=== PATIENT | female | born 1945 | race African-American/Black ===

== ENCOUNTER 2016-04-19 12:00 | Emergency (ER) | payer OTHER ==
[~2016-04-19] VITALS: Ht 162.6 cm; Wt 81.6 kg
[~2016-04-19 12:00] MED LIST: ACET650S PEG; AMLO10TA4 PO; AMLO5TAB2 PEG; ASPI81TA44 PO; ATOR40TA PO; ATOR40TA59 PEG; ATORVASTATIN CA80 MG PO; Amlodipine PO; CARV12.5 PO; CARV6.252 PO; CHOL10003 GT; CIPR500T94 PO; CLOP75TA27 PO; COLE5PAC PO; FAMO20TA5 PO; FURO-68 PO; FURO40SO5 PEG; Furosemide PEG; Hydralazine Hcl PO; INSU100I17 SQ; INSU100I18 SQ; INSU100V31 SQ; ISOS20TA4 PO; ISOS30TA4 PO; Isosorbide Dinitrate PO; Isosorbide PO; LABETALOL PO; LANS30CA17 PO; LANS30TA6 FT; LANS30TA6 PEG; LIPITOR80 MG PO; LISI40TA PO; LOSA100T6 PO; LOSA50TA2 PO; MERO500V3 IV; METO100T11 PO; MULT-114 PO; PANT40TA5 PO; POTA20LI PEG; VANC1FRO IV; Vitamin D3 PO; WARF2TAB PO; WARF5TAB PO; [UNRECOGNIZED DRUG - CODE] MC
--- NOTE | 2016-04-19 12:56 | RAD ---
Portable AP upright view CXR: Clinical indications: Back cough and fever. Comparison: October 20, 2015. Findings: No acute lung infiltrate or pleural effusion or pulmonary edema or lung mass or pneumothorax is seen. The heart size, pulmonary vasculature, mediastinum and both doc are stable. Impression: No acute radiographic abnormality is seen.
[2016-04-19 13:44] LABS: CALCIUM 8.9 mg/dL (8.5-10.1); CREATININE 0.7 mg/dL (0.6-1.0); GFR 99.8
[2016-04-19 13:48] LABS: ALBUMIN 2.7 g/dL (3.4-5.0); ALBUMIN/GLOBULIN RATIO 0.6 (1.0-1.7); TOTAL PROTEIN 7.4 g/dL (6.4-8.2)
--- NOTE | 2016-04-19 14:19 | PHYS DOC ---
Past Medical History Past Medical History: Anemia, CAD, CHF, CVA, Diabetes-Type II, High Cholesterol , Heart Disease, Hypertension, NE, Additional Disease, Other Additional Past Medical Histor: R sided deficits d/t CVA, non-verbal Past Surgical History: Coronary Bypass Surgery Additional Past Surgical Histo: leg vein, R AKA, PEG tube Alcohol Use: None Drug Use: None Adult General Chief Complaint Chief Complaint: FEVER HPI HPI Patient is a 70 year old female who presents with her daughter for evaluation of cough for the past 1-2 weeks. She has productive cough. Daughter also noted a fever this morning to 101. Daughter has been given her guaifenesin for cough. Daughter states patient has otherwise been tolerating PEG to feeds and has normal urinary and bowel habits. She also has normal activity for her baseline. Daughter denies emesis or confusion from baseline. Review of Systems Review of Systems Unable to obtain secondary to chronic clinical status Allergies Allergies Allergies Coded Allergies Type Severity Reaction Last Updated Verified I S O L A T I O N *CONTACT* Allergy Unknown 05/26/14 Yes No Known Medication Allergies Allergy Unknown 05/26/14 Yes Physical Exam Physical Exam Constitutional: Well developed, well nourished, no acute distress, non-toxic appearance. [] HENT: Normocephalic, atraumatic, bilateral external ears normal, oropharynx moist, no oral exudates, nose normal. [] Eyes: PERRLA, EOMI. [] Neck: Normal range of motion, supple, no stridor. [] Cardiovascular:Heart rate regular rhythm [] Lungs & Thorax: Bilateral breath sounds clear to auscultation. Intermittent wet cough [] Abdomen: Bowel sounds normal, soft, no tenderness. [] Skin: Warm, dry, no erythema, no rash. [] Back: No tenderness, no CVA tenderness. [] Extremities: No tenderness, ROM intact, no edema. Right above-knee amputation. [ ] Neurologic: Alert, chronic left-sided weakness secondary to past stroke. [] Psychologic: Cooperative, pleasant. [] Current Patient Data Vital Signs Vital Signs Date Time Temp Pulse Resp B/P Pulse Ox O2 Delivery O2 Flow Rate FiO2 04/19/16 14:34 83 164/72 92 Nasal Cannula 2 04/19/16 12:00 99.2 18 99.2 Lab Values Laboratory Tests Test 04/19/16 13:15 Sodium Level 140mmol/L (136-145) Potassium Level 4.0mmol/L (3.5-5.1) Chloride Level 105mmol/L (98-107) Carbon Dioxide Level 25mmol/L (21-32) Anion Gap 10 (6-14) Blood Urea Nitrogen 22mg/dL (7-20) H Creatinine 0.7mg/dL (0.6-1.0) Estimated GFR (Cockcroft-Gault) 99.8 BUN/Creatinine Ratio 31 (6-20) H Glucose Level 133mg/dL (70-99) H Calcium Level 8.9mg/dL (8.5-10.1) Total Bilirubin 1.0mg/dL (0.2-1.0) Aspartate Amino Transferase (AST) 44U/L (15-37) H Alanine Aminotransferase (ALT) 66U/L (14-59) H Alkaline Phosphatase 158U/L (46-116) H Total Protein 7.4g/dL (6.4-8.2) Albumin 2.7g/dL (3.4-5.0) L Albumin/Globulin Ratio 0.6 (1.0-1.7) L Laboratory Tests 04/19/16 13:15 EKG EKG EKG as interpreted by me as sinus rhythm with left bundle branch block, does not meet STEMI criteria, VA 204, QTc 453, no ectopy Radiology/Procedures Radiology/Procedures Chest xray as interpreted by me with no acute cardiopulmonary disease process Course & Med Decision Making Course & Med Decision Making Pertinent Labs and Imaging studies reviewed. (See chart for details) She appears well on exam. Workup is unremarkable here. Daughter feels comfortable continuing her care at home. Return precautions given. Daughter understands and agrees with plan. She was transported back home via EMS. Dragon Disclaimer Dragon Disclaimer This electronic medical record was generated, in whole or in part, using a voice recognition dictation system. Departure Departure Impression: Primary Impression: Cough Disposition: 01 HOME, SELF-CARE Condition: STABLE Referrals: IRWIN BELLO MD (PCP) Patient Instructions: Cough, Adult, [id number] Additional Instructions: Follow-up with your primary care doctor. Return for any concerns. Génesis WILSON MD Apr 19, 2016 14:19
[2016-04-19 14:34] VITALS: BP 164/72
--- NOTE | 2016-04-19 15:46 | EKG ---
[facility] [address] [place] [address] Test Date: 2016-04-19 Test Time: 12:13:28 Pat Name: ARIK ARAUJO Department: Room: Gender: F Compensation Advisor: : 1945 Requested By: Génesis WILSON Order Number: [id number] Reading MD: Liana Beebe Measurements Intervals [place] Rate: 74 P: -18 RI: 204 QRS: -23 QRSD: 142 T: 146 QT: 408 QTc: 453 Interpretive Statements SINUS RHYTHM ATRIAL PREMATURE COMPLEX(ES) LEFTWARD AXIS NON SPECIFIC INTRAVENTRICULAR BLOCK ABNORMAL ECG Electronically Signed On 04-21-2016 20:51:[address] [employer]IATE JUSTICE by Liana Beebe
== END 2016-04-19 15:51 | disposition home or self-care (01) ==
LOC: ER 12:00
DX: R05 Cough (principal); I25.10 Atherosclerotic heart disease of native coronary artery without angina pectoris; I11.0 Hypertensive heart disease with heart failure; I50.9 Heart failure, unspecified; I25.2 Old myocardial infarction; E11.9 Type 2 diabetes mellitus without complications; E78.00 Pure hypercholesterolemia, unspecified; Z86.73 Personal history of transient ischemic attack (TIA), and cerebral infarction without residual deficits; Z95.1 Presence of aortocoronary bypass graft; Z91.041 Radiographic dye allergy status
CPT/HCPCS: 36415; 71010; 80053; 93005; 99285-25

== ENCOUNTER 2016-06-01 10:39 | Emergency (ER) | payer OTHER ==
[~2016-06-01 10:39] MED LIST changes: -ACET650S PEG; +ACET650S19 PEG
[2016-06-01 11:25] LABS: NEG OBC FOB NEG; POS OBC FOB POS
--- NOTE | 2016-06-01 11:25 | RAD ---
Examination: Acute abdomen series History: History of GI bleed Comparison: 05/29/2015 Findings: Low lung volumes and technique accentuate heart size and pulmonary vascularity. There is no acute infiltrate or visualized pneumothorax identified. No evidence of free air noted under the hemidiaphragms Moderately distended bowel loops identified in the midabdomen. Moderate amount of feces and gas noted in the rectum and descending colon region. Impression: 1. Moderate distended bowel loops identified in the midabdomen. Nonspecific bowel gas pattern. 2. Moderate amount of stool identified in the descending colon and the rectum.
[2016-06-01 11:56] LABS: BILIRUBIN,URINE NEGATIVE (NEG); GLUCOSE,URINE NEGATIVE (NEG); NITRITE,URINE POSITIVE (NEG); PROTEIN,URINE 30 mg/dL (NEG-TRACE)
[2016-06-01] MEDS ORDERED: IV NORMAL SALINE 1000ML BAG 1,000 ML IV ONE (12:00)
[2016-06-01 12:12] LABS: BACTERIA,URINE MANY /HPF (0-FEW); RBC,URINE FOBS /HPF (0-2); WBC,URINE TNTC /HPF (0-4)
[2016-06-01 12:19] LABS: BASO % 1 % (0-3); EOS % 6 % (0-3); HEMATOCRIT 32.8 % (36.0-47.0); HEMOGLOBIN 10.8 g/dL (12.0-15.5); LYMPH # 1.5 x10^3/uL (1.0-4.8); LYMPH % 20 % (24-48); MEAN CORPUSCULAR HEMOGLOBIN 30 pg (25-35); MEAN CORPUSCULAR HGB CONC 33 g/dL (31-37); MEAN CORPUSCULAR VOLUME 91 fL (79-100); MONO % 7 % (0-9); NEUT % 67 % (31-73); PLATELET COUNT 213 x10^3/uL (140-400); RED BLOOD COUNT 3.59 x10^6/uL (3.50-5.40); RED CELL DISTRIBUTION WIDTH 14.5 % (11.5-14.5); WHITE BLOOD COUNT 7.4 x10^3/uL (4.0-11.0)
[2016-06-01 12:29] LABS: INR 1.1 (0.8-1.1); PROTHROMBIN TIME PATIENT 13.8 SEC (11.7-14.0)
[2016-06-01 12:32] LABS: CALCIUM 9.3 mg/dL (8.5-10.1); CREATININE 0.8 mg/dL (0.6-1.0); GFR 85.6; POTASSIUM 3.8 mmol/L (3.5-5.1)
[2016-06-01 12:37] LABS: ALBUMIN 2.5 g/dL (3.4-5.0); ALBUMIN/GLOBULIN RATIO 0.5 (1.0-1.7); TOTAL BILIRUBIN 0.7 mg/dL (0.2-1.0); TOTAL PROTEIN 7.2 g/dL (6.4-8.2)
[2016-06-01] MEDS ORDERED: IOHEXOL 300 MG/ML 75 ML VIAL IV ONE (13:15)
--- NOTE | 2016-06-01 13:30 | RAD ---
Examination: CT of the abdomen pelvis with IV contrast History: History of abdominal pain, diarrhea, black stools Comparison: 12/02/2015 Technique: Axial CT images of the temporal is a performed with IV contrast, Coronal and sagittal reformats were performed PQRS Compliance Statement: One or more of the following individualized dose reduction techniques were utilized for this examination: 1. Automated exposure control 2. Adjustment of the mA and/or kV according to patient size 3. Use of iterative reconstruction technique Findings Minimal bibasal lung atelectasis. No evidence of free air identified in the abdomen. The visualized liver, spleen, adrenals grossly appears unremarkable. Cholecystectomy clips are identified. The PEG tube balloon is identified in the stomach. The stomach is mildly distended. The visualized pancreas grossly appears unremarkable. The bilateral kidneys enhance symmetrically. The small bowel is nondilated. Large amount of stool identified in the rectum with surrounding mild inflammatory fat stranding. The appendix grossly appears unremarkable. The urinary bladder demonstrates Saab catheter balloon within. Moderate to severe aortic atherosclerosis. There is minimal focal abdominal aortic ectasia. Moderate degenerative changes identified in the visualized thoracal lumbar spine. Moderate size soft tissue density identified in the left breast again identified. Impression: 1. Large amount of stool identified in the rectum with surrounding inflammatory fat stranding probably due to fecal impaction. 2. Moderate size soft tissue density identified in the left breast region. Follow-up mammography is recommended.
[2016-06-01] MEDS ORDERED: NA P133E2 RC (14:59)
[2016-06-01] MEDS ORDERED: DOCU-27 PO (15:01)
--- NOTE | 2016-06-01 15:31 | EKG ---
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 RI6.01 Unconfirmed report Compared to ECG 04/19/2016 12:13:28 First degree AV block now present Electronically Signed On 06-03-2016 14:04:07 FLOCCULATOR OPERATOR by Rob Almanza
--- NOTE | 2016-06-01 16:45 | ED.ADGEN ---
Past Medical History Past Medical History: Anemia, CAD, CHF, CVA, Diabetes-Type II, High Cholesterol , Heart Disease, Hypertension, OR, Additional Disease, Other Additional Past Medical Histor: R sided deficits d/t CVA, non-verbal Past Surgical History: Coronary Bypass Surgery Additional Past Surgical Histo: leg vein, R AKA, PEG tube Alcohol Use: None Drug Use: None Adult General Chief Complaint Chief Complaint: TARRY STOOL HPI HPI Patient is a 70 year old woman, history of CVA with residual right-sided deficits, nonverbal due to sequelae, hypertension, hyperlipidemia, GI bleed, who presents to the emergency department via EMS, with a report of dark stools times one day. Patient's daughter is en route to the emergency department to provide additional information. Patient has a chronic indwelling Saab catheter and PEG tube, no report of vomiting, report of loose dark stools over the past day as stated, no bleeding for the PEG site, no fevers or chills, no respiratory distress reported. Limited evaluation secondary to patient's nonverbal status. Review of Systems Review of Systems Unable to assess secondary to clinical condition. Current Medications Current Medications Current Medications Medications (Trade) Dose Ordered Sig/Courtney Start Time Stop Time Status Last Admin Dose Admin Iohexol (Omnipaque 300 Mg/ml) 75 ml 1X ONCE 06/01/16 13:15 06/01/16 13:16 DC 06/01/16 13:27 75 ML Sodium Chloride (Iv Sodium Chloride 0.9% 1000ml Bag) 1,000 ml @ 100 mls/hr 1X ONCE 06/01/16 12:00 06/01/16 21:59 06/01/16 12:00 100 MLS/HR Allergies Allergies Allergies Coded Allergies Type Severity Reaction Last Updated Verified I S O L A T I O N *CONTACT* Allergy Unknown 05/26/14 Yes No Known Medication Allergies Allergy Unknown 05/26/14 Yes Physical Exam Physical Exam Constitutional: Well developed, well nourished, no acute distress, non-toxic appearance. [] HENT: Normocephalic, atraumatic, bilateral external ears normal, oropharynx moist, no oral exudates, nose normal. [] Eyes: PERRLA, EOMI, conjunctiva normal, no discharge. [] Neck: Normal range of motion, no tenderness, supple, no stridor. [] Cardiovascular:Heart rate regular rhythm, no murmur, S1, S2, rubs or gallops. [] Lungs & Thorax: Bilateral breath sounds clear to auscultation, no wheezing, rhonchi, rales. [] Abdomen: Bowel sounds normal, PEG tube in place, surrounding site is clean dry and intact, noted some bleeding, patient's abdomen is mildly distended, no rebound, rigidity or guarding, soft, no tenderness, no masses, no pulsatile masses. [] Skin: Warm, dry, no erythema, no rash. [] Back: No tenderness, no CVA tenderness. [] Extremities: No tenderness, no cyanosis, no clubbing, ROM intact, no edema. [] Neurologic: Alert and oriented X 3, normal motor function, normal sensory function, no focal deficits noted. [] Psychologic: Affect normal, judgement normal, mood normal. [] Rectal examination: Patient with large amounts of soft stool in vault, and in diaper, brown. Hemorrhoids noted, nonthrombosed. No evidence of ibrahima blood. Current Patient Data Vital Signs Vital Signs Date Time Temp Pulse Resp B/P Pulse Ox O2 Delivery O2 Flow Rate FiO2 06/01/16 16:06 50 16 138/80 94 Room Air 06/01/16 10:55 98.2 98.2 Lab Values Laboratory Tests Test 06/01/16 11:09 06/01/16 11:42 06/01/16 11:50 Stool Occult Blood Negative (NEG) Urine Collection Type Unknown Urine Color Yellow Urine Clarity Cloudy Urine pH 7.0 Urine Specific [place] 1.015 Urine Protein 30mg/dL (NEG-TRACE) Urine Glucose (UA) Negativemg/dL (NEG) Urine Ketones (Stick) Negativemg/dL (NEG) Urine Blood Negative (NEG) Urine Nitrite Positive (NEG) Urine Bilirubin Negative (NEG) Urine Urobilinogen Dipstick 1.0mg/dL (0.2 mg/dL) Urine Leukocyte Esterase Large (NEG) Urine RBC Fobs/HPF (0-2) Urine WBC Tntc/HPF (0-4) Urine Amorphous Sediment Present/HPF Urine Bacteria Many/HPF (0-FEW) Urine Mucus Marked/LPF White Blood Count 7.4x10^3/uL (4.0-11.0) Red Blood Count 3.59x10^6/uL (3.50-5.40) Hemoglobin 10.8g/dL (12.0-15.5) L Hematocrit 32.8% (36.0-47.0) L Mean Corpuscular Volume 91fL (79-100) Mean Corpuscular Hemoglobin 30pg (25-35) Mean Corpuscular Hemoglobin Concent 33g/dL (31-37) Red Cell Distribution Width 14.5% (11.5-14.5) Platelet Count 213x10^3/uL (140-400) Neutrophils (%) (Auto) 67% (31-73) Lymphocytes (%) (Auto) 20% (24-48) L Monocytes (%) (Auto) 7% (0-9) Eosinophils (%) (Auto) 6% (0-3) H Basophils (%) (Auto) 1% (0-3) Neutrophils # (Auto) 5.0x10^3uL (1.8-7.7) Lymphocytes # (Auto) 1.5x10^3/uL (1.0-4.8) Monocytes # (Auto) 0.5x10^3/uL (0.0-1.1) Eosinophils # (Auto) 0.4x10^3/uL (0.0-0.7) Basophils # (Auto) 0.0x10^3/uL (0.0-0.2) Prothrombin Time 13.8SEC (11.7-14.0) Prothrombin Time INR 1.1 (0.8-1.1) PTT 55SEC (24-38) H Sodium Level 142mmol/L (136-145) Potassium Level 3.8mmol/L (3.5-5.1) Chloride Level 105mmol/L (98-107) Carbon Dioxide Level 32mmol/L (21-32) Anion Gap 5 (6-14) L Blood Urea Nitrogen 26mg/dL (7-20) H Creatinine 0.8mg/dL (0.6-1.0) Estimated GFR (Cockcroft-Gault) 85.6 BUN/Creatinine Ratio 33 (6-20) H Glucose Level 181mg/dL (70-99) H Lactic Acid Level 1.2mmol/L (0.4-2.0) Calcium Level 9.3mg/dL (8.5-10.1) Total Bilirubin 0.7mg/dL (0.2-1.0) Aspartate Amino Transferase (AST) 24U/L (15-37) Alanine Aminotransferase (ALT) 34U/L (14-59) Alkaline Phosphatase 146U/L (46-116) H Total Protein 7.2g/dL (6.4-8.2) Albumin 2.5g/dL (3.4-5.0) L Albumin/Globulin Ratio 0.5 (1.0-1.7) L Laboratory Tests 06/01/16 11:50 Laboratory Tests 06/01/16 11:50 EKG EKG ECG: Sinus rhythm, heart rate 59 bpm, QTC of 456, AL of 238, QRS of 144, left axis deviation with nonspecific interventricular block noted, abnormal ECG, does not meet STEMI criteria. As inserted by me. [] Radiology/Procedures Radiology/Procedures [] [facility] [address] [place] [address] IMAGING REPORT Signed PATIENT: ARIK ARAUJO ACCOUNT: [id number] : 1945 LOCATION: ER AGE: 70 SEX: F EXAM STATUS: REG ER ORD. PHYSICIAN: WILLY HARRELL DO REASON: abd pain/diarrhea PROCEDURE: ABD PELV W/ IV CONTRAST ONLY Examination: CT of the abdomen pelvis with IV contrast History: History of abdominal pain, diarrhea, black stools Comparison: 12/02/2015 Technique: Axial CT images of the temporal is a performed with IV contrast, Coronal and sagittal reformats were performed PQRS Compliance Statement: One or more of the following individualized dose reduction techniques were utilized for this examination: 1. Automated exposure control 2. Adjustment of the mA and/or kV according to patient size 3. Use of iterative reconstruction technique Findings Minimal bibasal lung atelectasis. No evidence of free air identified in the abdomen. The visualized liver, spleen, adrenals grossly appears unremarkable. Cholecystectomy clips are identified. The PEG tube balloon is identified in the stomach. The stomach is mildly distended. The visualized pancreas grossly appears unremarkable. The bilateral kidneys enhance symmetrically. The small bowel is nondilated. Large amount of stool identified in the rectum with surrounding mild inflammatory fat stranding. The appendix grossly appears unremarkable. The urinary bladder demonstrates Saab catheter balloon within. Moderate to severe aortic atherosclerosis. There is minimal focal abdominal aortic ectasia. Moderate degenerative changes identified in the visualized thoracal lumbar spine. Moderate size soft tissue density identified in the left breast again identified. Impression: 1. Large amount of stool identified in the rectum with surrounding inflammatory fat stranding probably due to fecal impaction. 2. Moderate size soft tissue density identified in the left breast region. Follow-up mammography is recommended. DICTATED and SIGNED BY: MILAD COLLINS MD DATE: 06/01/16 1318 CC: IRWIN VALLE MD; WILLY HARRELL DO ~ Impressions: [facility] [address] [place], [place] [id number] IMAGING REPORT Signed PATIENT: ARIK ARAUJO ACCOUNT: [id number] : 1945 LOCATION: ER AGE: 70 SEX: F EXAM STATUS: PRE ER ORD. PHYSICIAN: WILLY HARRELL DO REASON: GI bleeding PROCEDURE: ACUTE ABDOMEN SERIES Examination: Acute abdomen series History: History of GI bleed Comparison: 05/29/2015 Findings: Low lung volumes and technique accentuate heart size and pulmonary vascularity. There is no acute infiltrate or visualized pneumothorax identified. No evidence of free air noted under the hemidiaphragms Moderately distended bowel loops identified in the midabdomen. Moderate amount of feces and gas noted in the rectum and descending colon region. Impression: 1. Moderate distended bowel loops identified in the midabdomen. Nonspecific bowel gas pattern. 2. Moderate amount of stool identified in the descending colon and the rectum. DICTATED and SIGNED BY: MILAD COLLINS MD DATE: 06/01/16 1120 CC: IRWIN VALLE MD; WILLY HARRELL DO ~ Course & Med Decision Making Course & Med Decision Making Pertinent Labs and Imaging studies reviewed. (See chart for details) Patient with a slightly distended abdomen, and distended loops of bowel noted on x-ray, proceeded with CT, due to patient's limited ability to participate in examination, with reports of large amounts of loose stool. Hemoccult negative in the emergency room, patient noted to have a nitrate positive urine, with evidence of bacteria and glucose leuks, but she is a chronically indwelling Saab catheter. Patient has no fever, and no gross cytosis. CT of the abdomen and pelvis reveals fecal impaction, with liquid stool that has been noted moving around the solid stool that is impacted. No other acutely concerning findings identified. I did discuss these findings with Dr. Valle,the patient' s primary care provider. Patient's hemoglobin is 10.8, although this is lower than her previous, she has no evidence of bleeding on examination or in her stool sample. He requests the patient be disimpacted, and that her catheter be replaced, as he believes this is colonization,patient is exhibiting no signs of infection, will hold off on any antibiotics or other events this time. I did discuss this plan with patient's daughter at bedside, she is agreeable with this plan. Patient's Saab catheter was replaced without issue, patient had a disimpaction performed along with soapsuds enema, with significant amount of stool mobilized. Transportation was arranged, and patient was transferred back to the nursing facility without issue. Dragon Disclaimer Dragon Disclaimer This electronic medical record was generated, in whole or in part, using a voice recognition dictation system. Departure Impression: Primary Impression: Fecal impaction in rectum Disposition: HOME, SELF-CARE Condition: IMPROVED Scripts Docusate Sodium (Colace)100 Mg [id number] Mg PO BID PRN CONSTIPATION #30 Prov:WILLY HARRELL DO 06/01/16 Na Phos,M-B/Na Phos,Di-Ba (Fleet Enema)133 Ml Enema1 Each RC ONCE PRN CONSTIPATION #1 BOTTLE Prov:WILLY HARRELL DO 06/01/16 WILLY HARRELL DO Jun 01, 2016 16:45
[2016-06-01 17:15] VITALS: BP 132/73
== END 2016-06-01 17:16 | disposition home or self-care (01) ==
LOC: ER 10:39
DX: K56.41 Fecal impaction (principal); I11.0 Hypertensive heart disease with heart failure; I50.9 Heart failure, unspecified; E11.9 Type 2 diabetes mellitus without complications; E78.00 Pure hypercholesterolemia, unspecified; I25.2 Old myocardial infarction; I25.10 Atherosclerotic heart disease of native coronary artery without angina pectoris; Z86.73 Personal history of transient ischemic attack (TIA), and cerebral infarction without residual deficits; Z95.1 Presence of aortocoronary bypass graft; Z91.041 Radiographic dye allergy status
CPT/HCPCS: 36415; 51702; 74022; 74177; 80053; 81001; 82274; 83605; 85027; 85610; 85730; 86850; 86900; 86901; 87086; 93005; 96360; 96361; 99285; J7030; Q9967; 87186

== ENCOUNTER 2016-07-13 15:13 | Emergency (ER) | payer OTHER ==
[~2016-07-13 15:13] MED LIST changes: +DOCU-27 PO; +NA P133E2 RC
[2016-07-13 16:07] LABS: GLUCOSE,URINE NEGATIVE (NEG); NITRITE,URINE POSITIVE (NEG); PROTEIN,URINE >=300 mg/dL (NEG-TRACE)
[2016-07-13 16:14] LABS: BACTERIA,URINE MANY /HPF (0-FEW); RBC,URINE TNTC /HPF (0-2)
[2016-07-13 16:59] LABS: BASO # 0.1 x10^3/uL (0.0-0.2); BASO % 1 % (0-3); EOS % 5 % (0-3); HEMATOCRIT 36.9 % (36.0-47.0); HEMOGLOBIN 12.4 g/dL (12.0-15.5); LYMPH # 2.1 x10^3/uL (1.0-4.8); LYMPH % 23 % (24-48); MEAN CORPUSCULAR HEMOGLOBIN 30 pg (25-35); MEAN CORPUSCULAR HGB CONC 34 g/dL (31-37); MEAN CORPUSCULAR VOLUME 91 fL (79-100); MONO % 6 % (0-9); NEUT % 65 % (31-73); PLATELET COUNT 212 x10^3/uL (140-400); RED BLOOD COUNT 4.07 x10^6/uL (3.50-5.40); RED CELL DISTRIBUTION WIDTH 14.3 % (11.5-14.5); WHITE BLOOD COUNT 8.9 x10^3/uL (4.0-11.0)
[2016-07-13 17:08] LABS: CALCIUM 8.7 mg/dL (8.5-10.1); CREATININE 0.7 mg/dL (0.6-1.0); GFR 99.8
[2016-07-13 17:10] LABS: PROTHROMBIN TIME PATIENT 12.7 SEC (11.7-14.0)
[2016-07-13 17:14] LABS: ALBUMIN 2.8 g/dL (3.4-5.0); ALBUMIN/GLOBULIN RATIO 0.6 (1.0-1.7); TOTAL BILIRUBIN 0.8 mg/dL (0.2-1.0); TOTAL PROTEIN 7.3 g/dL (6.4-8.2)
[2016-07-13] MEDS ORDERED: ISOS30TA4 PO (17:49)
[2016-07-13] MEDS ORDERED: HYDR12.58 PO (17:49)
[2016-07-13] MEDS ORDERED: CARV25TA2 PO (17:49)
[2016-07-13] MEDS ORDERED: CEPH-264 PO (18:10)
--- NOTE | 2016-07-13 18:10 | PHYS DOC ---
Past Medical History Past Medical History: Anemia, CAD, CHF, Constipation, CVA, Diabetes-Type II, High Cholesterol, Heart Disease, Hypertension, [place], Additional Disease, Other Additional Past Medical Histor: R sided deficits d/t CVA, non-verbal Past Surgical History: Coronary Bypass Surgery Additional Past Surgical Histo: leg vein, R AKA, PEG tube Alcohol Use: None Drug Use: None Adult General Chief Complaint Chief Complaint: BLOOD IN URINE HPI HPI Patient is a 70 year old female with a history significant for coronary artery disease, hypertension, diabetes, CHF, atrial fibrillation, bypass surgery, status post right AKA who presents to the ER today secondary to bleeding in her Saab catheter. Patient's daughter reports that this afternoon she noticed grapelike color in her urine. Patient denies any fevers shakes chills nausea vomiting. She has had several loose stools today. Patient reports that she had the Saab in place since 2013 secondary to a stroke. Daughter reports last and the Saab was changed with roughly 1 month ago. Since rheumatology. Patient has any chest pain or shortness of breath. Patient has any dizziness. Patient denies any headaches. Patient denies any change in her baseline weakness. Patient's physical exam the ER was significant for a normal abdominal exam. A soft nontender no rebound or guarding. Patient's heart was regular rate and rhythm. Patient have an elevated blood pressure in the ER however she is currently being treated for hypertension and is due for medication this evening. Full catheter had no clots noticed however she did have dark red urine insider catheter. Patient's ER course was significant for last or drawl which were all within normal limits. Patient is not on any anticoagulant therapy except for aspirin. Patient had a three-way Saab catheter inserted and continuous bladder irrigation is performed. After approximately 500 mL of continuous bladder irrigation patient's urine appeared clear and has been clear since. Patient's UA was positive for large amount leukocytes. We will go ahead and give her dose of Rocephin and send her home with Keflex in case there is a urinary tract infection that might be causing inflammation of her bladder resulting in bleeding. I discussed with the daughter that there is a possibility that she might have an AVM versus tumor versus polyps that these to be evaluated further by her urologist. Patient's clinically hemodynamically stable at this time for discharge home for further outpatient evaluation of her hematuria. Review of Systems Review of Systems Constitutional: Denies fever or chills [] Eyes: Denies change in visual acuity, redness, or eye pain [] HENT: Denies nasal congestion or sore throat [] All other review systems are negative except as documented in the history of present illness. Allergies Allergies Allergies Coded Allergies Type Severity Reaction Last Updated Verified I S O L A T I O N *CONTACT* Allergy Unknown 05/26/14 Yes No Known Medication Allergies Allergy Unknown 05/26/14 Yes Physical Exam Physical Exam Constitutional: Well developed, well nourished, no acute distress, non-toxic appearance. [] HENT: Normocephalic, atraumatic, bilateral external ears normal, oropharynx moist, no oral exudates, nose normal. [] Eyes: PERRLA, conjunctiva normal, no discharge. [] Neck: , no tenderness, supple, no stridor. [] Cardiovascular:Heart rate regular rhythm, Abdomen: Bowel sounds normal, soft, no tenderness, no masses, no pulsatile masses. [] Skin: Warm, dry, no erythema, Back: No tenderness, no CVA tenderness. [] Extremities: No tenderness, Neurologic: Alert Psychologic: Affect normal, judgement normal, mood normal. [] Current Patient Data Vital Signs Vital Signs Date Time Temp Pulse Resp B/P Pulse Ox O2 Delivery O2 Flow Rate FiO2 07/13/16 15:46 98.6 65 18 165/71 97 Room Air 98.6 Lab Values Laboratory Tests Test 07/13/16 15:35 07/13/16 16:50 Urine Collection Type Unknown Urine Color Red Urine Clarity Turbid Urine pH 8.0 Urine Specific [place] 1.010 Urine Protein >=300mg/dL (NEG-TRACE) Urine Glucose (UA) Negativemg/dL (NEG) Urine Ketones (Stick) Negativemg/dL (NEG) Urine Blood Large (NEG) Urine Nitrite Positive (NEG) Urine Bilirubin (NEG) Urine Urobilinogen Dipstick 1.0mg/dL (0.2 mg/dL) Urine Leukocyte Esterase Large (NEG) Urine RBC Tntc/HPF (0-2) Urine WBC 1-4/HPF (0-4) Urine Bacteria Many/HPF (0-FEW) Urine Mucus Mod/LPF White Blood Count 8.9x10^3/uL (4.0-11.0) Red Blood Count 4.07x10^6/uL (3.50-5.40) Hemoglobin 12.4g/dL (12.0-15.5) Hematocrit 36.9% (36.0-47.0) Mean Corpuscular Volume 91fL (79-100) Mean Corpuscular Hemoglobin 30pg (25-35) Mean Corpuscular Hemoglobin Concent 34g/dL (31-37) Red Cell Distribution Width 14.3% (11.5-14.5) Platelet Count 212x10^3/uL (140-400) Neutrophils (%) (Auto) 65% (31-73) Lymphocytes (%) (Auto) 23% (24-48) L Monocytes (%) (Auto) 6% (0-9) Eosinophils (%) (Auto) 5% (0-3) H Basophils (%) (Auto) 1% (0-3) Neutrophils # (Auto) 5.8x10^3uL (1.8-7.7) Lymphocytes # (Auto) 2.1x10^3/uL (1.0-4.8) Monocytes # (Auto) 0.5x10^3/uL (0.0-1.1) Eosinophils # (Auto) 0.5x10^3/uL (0.0-0.7) Basophils # (Auto) 0.1x10^3/uL (0.0-0.2) Prothrombin Time 12.7SEC (11.7-14.0) Prothrombin Time INR 1.0 (0.8-1.1) Sodium Level 141mmol/L (136-145) Potassium Level 4.0mmol/L (3.5-5.1) Chloride Level 102mmol/L (98-107) Carbon Dioxide Level 31mmol/L (21-32) Anion Gap 8 (6-14) Blood Urea Nitrogen 22mg/dL (7-20) H Creatinine 0.7mg/dL (0.6-1.0) Estimated GFR (Cockcroft-Gault) 99.8 BUN/Creatinine Ratio 31 (6-20) H Glucose Level 160mg/dL (70-99) H Calcium Level 8.7mg/dL (8.5-10.1) Total Bilirubin 0.8mg/dL (0.2-1.0) Aspartate Amino Transferase (AST) 31U/L (15-37) Alanine Aminotransferase (ALT) 48U/L (14-59) Alkaline Phosphatase 174U/L (46-116) H Total Protein 7.3g/dL (6.4-8.2) Albumin 2.8g/dL (3.4-5.0) L Albumin/Globulin Ratio 0.6 (1.0-1.7) L Laboratory Tests 07/13/16 16:50 Laboratory Tests 07/13/16 16:50 EKG EKG [] Radiology/Procedures Radiology/Procedures [] Course & Med Decision Making Course & Med Decision Making Pertinent Labs and Imaging studies reviewed. (See chart for details) [] Dragon Disclaimer Dragon Disclaimer This electronic medical record was generated, in whole or in part, using a voice recognition dictation system. Departure Departure Impression: Primary Impression: Urinary tract infection Additional Impression: Hematuria Disposition: HOME, SELF-CARE Condition: IMPROVED Referrals: IRWIN BELLO MD (PCP) Patient Instructions: Catheter-Associated Urinary Tract Infection FAQs - TONG, Saab Catheter Care, Adult, Hematuria, Adult Scripts Cephalexin (Keflex)500 Mg [id number] Mg PO TID 10 Days Prov:CHERRI SKINNER MD 07/13/16 Problem Qualifiers CHERRI SKINNER MD Jul 13, 2016 18:10
[2016-07-13] MEDS ORDERED: CEPHALEXIN 250 MG CAPSULE. PO STA (18:25)
[2016-07-13] MEDS ORDERED: CEFTRIAXONE 1GM IVPB FOR OMNI 50 ML IV ONE (18:30)
[2016-07-14 17:50] VITALS: BP 169/73
[2016-07-16] MEDS ORDERED: LOSA50TA6 PEG (10:41)
[2016-07-16] MEDS ORDERED: ISOS10TA2 PEG (10:41)
[2016-07-16] MEDS ORDERED: HYDR-2868 PEG (10:41)
[2016-07-16] MEDS ORDERED: AMLO10TA2 PEG (10:41)
[2016-07-16] MEDS ORDERED: POTA20LI PEG (10:41)
[2016-07-16] MEDS ORDERED: ATOR40TA59 PEG (10:41)
[2016-07-16] MEDS ORDERED: FURO20TA3 PEG (10:41)
[2016-07-16] MEDS ORDERED: LANS30TA6 FT (10:41)
== END 2016-07-13 20:09 | disposition home or self-care (01) ==
LOC: ER 15:13
DX: N39.0 Urinary tract infection, site not specified (principal); R31.9 Hematuria, unspecified; I25.10 Atherosclerotic heart disease of native coronary artery without angina pectoris; I25.2 Old myocardial infarction; E11.9 Type 2 diabetes mellitus without complications; E78.00 Pure hypercholesterolemia, unspecified; I11.0 Hypertensive heart disease with heart failure; I50.9 Heart failure, unspecified; Z91.041 Radiographic dye allergy status; Z86.73 Personal history of transient ischemic attack (TIA), and cerebral infarction without residual deficits; Z95.1 Presence of aortocoronary bypass graft
CPT/HCPCS: 36415; 51702; 80053; 81001; 85027; 85610; 87086; 99284-25

== ENCOUNTER 2016-09-25 19:15 | Emergency (ER) | payer OTHER ==
[~2016-09-25 19:15] MED LIST changes: +AMLO10TA2 PEG; +CARV25TA2 PO; +CEPH-264 PO; -CLOP75TA27 PO; +CLOP75TA57 PO; +DOCU-109 PO; -DOCU-27 PO; +FURO20TA3 PEG; +HYDR-2868 PEG; +HYDR12.58 PO; +ISOS10TA2 PEG; -LANS30CA17 PO; +LANS30CA66 PO; +LOSA50TA6 PEG; +MERO500V15 IV; -MERO500V3 IV; -POTA20LI PEG; +POTA20LI27 PEG; +WARF-78 PO; -WARF5TAB PO
[2016-09-25] MEDS ORDERED: CONTRAST GIVEN MC PRN (20:45)
[2016-09-25] MEDS ORDERED: IOHEXOL 240 MG/ML 50ML VIAL. PO ONE (20:45)
--- NOTE | 2016-09-25 21:13 | PHYS DOC ---
Past Medical History Past Medical History: Anemia, CAD, CHF, Constipation, CVA, Diabetes-Type II, High Cholesterol, Heart Disease, Hypertension, [place], Additional Disease, Other Additional Past Medical Histor: R sided deficits d/t CVA, non-verbal Past Surgical History: Coronary Bypass Surgery Additional Past Surgical Histo: leg vein, R AKA, PEG tube Alcohol Use: None Drug Use: None Adult General Chief Complaint Chief Complaint: GI PROBLEM HPI HPI Patient is a 70 year old female status post CVA with a G-tube, brought in by ambulance from home with the complaint of concern in the G-tube may not be working. The granddaughter states "this G-tube is a year old and needs to be replaced". They state that recently the patient has sometimes made a face when they are instilling tube feedings into her feeding tube. Also, today, they had trouble flushing it prior to using evening medications. Granddaughter tells me that she called the office today about this problem and they told her that they could schedule to get the feeding tube replaced but it would be next week. They told her if she was having problems she should come into the ED for evaluation. The patient has had no vomiting. PCP Dr. Valle Review of Systems Review of Systems Patient is nonverbal and unable to contribute to review of systems. Current Medications Current Medications Current Medications Medications (Trade) Dose Ordered Sig/Courtney Start Time Stop Time Status Last Admin Dose Admin Carvedilol (Coreg) 25 mg 1X ONCE 09/25/16 21:30 09/25/16 21:31 Hydralazine HCl (Apresoline) 25 mg 1X ONCE 09/25/16 21:30 09/25/16 21:31 UNV Info (Do NOT chart on this entry -- for MONITORING) 1 each PRN DAILY PRN 09/25/16 20:45 09/27/16 20:44 Iohexol (Omnipaque 240 Mg/ml) 50 ml 1X ONCE 09/25/16 20:45 09/25/16 20:46 DC 09/25/16 20:42 50 ML Isosorbide Dinitrate (Isordil) 10 mg 1X ONCE 09/25/16 21:30 09/25/16 21:31 UNV Allergies Allergies Allergies Coded Allergies Type Severity Reaction Last Updated Verified No Known Medication Allergies Allergy Unknown 07/15/16 Yes Physical Exam Physical Exam Constitutional: Well developed, well nourished, no acute distress, non-toxic appearance. Alert, has purposeful movements, smiles, nods, nonverbal. HENT: Normocephalic, atraumatic, bilateral external ears normal, nose normal. [] Eyes: conjunctiva normal, no discharge. [] Neck: Normal range of motion, no stridor. [] Cardiovascular:Heart rate regular rhythm, no murmur [] Lungs & Thorax: Bilateral breath sounds clear to auscultation [] Abdomen: Bowel sounds normal, soft, nondistended, no masses, no pulsatile masses. G-tube site is nontender, no induration. Abdomen is nontender. Skin: Warm, dry, no erythema, no rash. [] Extremities: No tenderness, no cyanosis, no clubbing, ROM intact, no edema. [] Neurologic: Alert , status post CVA, appears to be at her baseline Current Patient Data Vital Signs Vital Signs Date Time Temp Pulse Resp B/P (MAP) Pulse Ox O2 Delivery O2 Flow Rate FiO2 09/25/16 19:15 97.6 65 18 196/93 (127) 100 Room Air 97.6 EKG EKG [] Radiology/Procedures Radiology/Procedures KUB with oral contrast instilled via G-tube read by me. The oral contrast appears to be in the stomach without extravasation. The G-tube appears to be functioning normally. [] Course & Med Decision Making Course & Med Decision Making Pertinent Labs and Imaging studies reviewed. (See chart for details) The patient's G-tube appears to be functioning in the emergency department. Discussed the case with PCP Dr. Valle. See instructions for plan. Discussed the case with patient's family and advised them to set up an outpatient G-tube change in the near future. The patient was given her evening blood pressure meds by ED nursing staff via G-tube. [] Dragon Disclaimer Dragon Disclaimer This electronic medical record was generated, in whole or in part, using a voice recognition dictation system. Departure Departure Impression: Primary Impression: Feeding tube blocked Disposition: 01 HOME, SELF-CARE Condition: STABLE Referrals: IRWIN VALLE MD (PCP) Additional Instructions: Today, ED nurse was able to flush water into the feeding tube without difficulty. X-ray shows that contrast material is going through the feeding tube and into the stomach. It may take longer than usual to put tube feedings in through the feeding tube, but you may continue to use that until it can be replaced. As we discussed, I discussed this with Dr. Valle. He wants you to call the office tomorrow and speak with Kristyn or Jelena. Changing of the feeding tube can be scheduled as an outpatient procedure. You may talked to Dr. Neves's nurse to get that scheduled. Call tomorrow morning and asked them to schedule it as soon as possible. CHRISTEN HERBERT MD Sep 25, 2016 21:13
[2016-09-25] MEDS ORDERED: CARVEDILOL 12.5 MG TABLET. GT ONE (21:30)
[2016-09-25] MEDS ORDERED: ISOSORBIDE DINITRATE 10 MG TABLET. GT ONE (21:30)
[2016-09-25] MEDS ORDERED: hydrALAZINE 25 MG TABLET PO ONE (21:30)
[2016-09-25 21:54] VITALS: BP 205/94
--- NOTE | 2016-09-26 07:38 | RAD ---
KUB Indications: PEG tube placement Findings: After injection of 50 mL Omnipaque 240 through the indwelling PEG tube, AP supine view of the abdomen was performed. Contrast is seen within the lumen of the stomach indicative of intraluminal positioning of the PEG tube. Therefore, the PEG tube balloon and tip are located within the lumen of the mid body of the stomach. No extravasation of contrast is seen. A small hiatal hernia is evident. Significant fecal retention is seen especially within the rectosigmoid region. IMPRESSION: PEG tube tip and balloon are located within the lumen of the stomach. Small hiatal hernia. Significant fecal retention within the rectum.
== END 2016-09-25 22:37 | disposition home or self-care (01) ==
LOC: ER 19:15
DX: K94.29 Other complications of gastrostomy (principal); I25.10 Atherosclerotic heart disease of native coronary artery without angina pectoris; I11.0 Hypertensive heart disease with heart failure; I50.9 Heart failure, unspecified; E11.9 Type 2 diabetes mellitus without complications; E78.00 Pure hypercholesterolemia, unspecified; I25.2 Old myocardial infarction; Z89.611 Acquired absence of right leg above knee; Z95.1 Presence of aortocoronary bypass graft; Z86.73 Personal history of transient ischemic attack (TIA), and cerebral infarction without residual deficits; Y83.3 Surgical operation with formation of external stoma as the cause of abnormal reaction of the patient, or of later complication, without mention of misadventure at the time of the procedure
CPT/HCPCS: 74000; 99284; Q9966

== ENCOUNTER → 2016-10-08 | Day surgery (SDC) | payer OTHER ==
[~2016-10-08] MED LIST changes: +IV RINGERS,LACTATED 1000ML 1,000 ML IV SCH; +PROPOFOL 20 ML IV ONE
--- NOTE | 2016-10-08 12:12 | PDOC1 ---
HISTORY & PHYSICAL H&P HPI: G tube has been clogged and deteriorated. needs replacement. Past Medical History history of CVA with right-sided hemiparesis, aphasia, dysphagia, chronic diastolic congestive heart failure, diabetes, hypertension, hyperlipidemia, coronary artery disease, peripheral arterial disease, paroxysmal atrial fibrillation on Coumadin, upper GI bleed secondary to duodenal ulcer, UTI, and bilateral lacunar infarcts. Past Surgical History RT AKA, Cholecystectomy, CABG, history of PTCA x2, and G-tube placement and replacement. Family History Unable to obtain. Social/Personal History According to chart, patient resides in [place] [facility]. Physical Exam: General appearance - alert, well appearing, and in no distress Mental status - alert, oriented to person, place, and time Eyes - sclera anicteric Chest - clear to auscultation, no wheezes, rales or rhonchi, symmetric air entry Abdomen - soft, nontender, nondistended, no masses or organomegaly no rebound tenderness noted Allergies Allergies Coded Allergies Type Severity Reaction Last Updated Verified I S O L A T I O N *CONTACT* Allergy Unknown 05/26/14 Yes No Known Medication Allergies Allergy Unknown 05/26/14 Yes Physical Exam: General appearance - alert, patient non-verbal. Eyes - sclera anicteric Chest - clear to auscultation, no wheezes, rales or rhonchi, symmetric air entry Abdomen - soft, ND, epigastric tenderness, BS +, + Peg tube in situ, no masses or organomegaly no rebound tenderness noted Assessment: Malfunctioning of G tube. Plan: EGD with removal and replacement of G tube. KRISTEN LAMB MD Oct 08, 2016 12:12
[2016-10-08 12:37] VITALS: BP 167/79
== END | disposition home or self-care (01) ==
LOC: SURG 11:11
PROVIDERS: ATTEND Internal Medicine Gastroenterology
DX: K94.23 Gastrostomy malfunction (principal); K21.0 Gastro-esophageal reflux disease with esophagitis; Z93.1 Gastrostomy status; E78.00 Pure hypercholesterolemia, unspecified; I10 Essential (primary) hypertension; E11.9 Type 2 diabetes mellitus without complications; Z86.69 Personal history of other diseases of the nervous system and sense organs; Z86.73 Personal history of transient ischemic attack (TIA), and cerebral infarction without residual deficits; Z87.39 Personal history of other diseases of the musculoskeletal system and connective tissue; Z86.14 Personal history of Methicillin resistant Staphylococcus aureus infection
CPT/HCPCS: 43246; J2704

== ENCOUNTER → 2017-06-03 | Outpatient (CLI) | payer MEDICARE, OTHER | END | disposition home or self-care (01) | LOC: PMGWOUND 11:32 | DX: E11.621 Type 2 diabetes mellitus with foot ulcer (principal); L97.421 Non-pressure chronic ulcer of left heel and midfoot limited to breakdown of skin; I48.91 Unspecified atrial fibrillation; E78.5 Hyperlipidemia, unspecified; I10 Essential (primary) hypertension; Z95.1 Presence of aortocoronary bypass graft; Z86.73 Personal history of transient ischemic attack (TIA), and cerebral infarction without residual deficits | CPT/HCPCS: 97597 ==

== ENCOUNTER → 2017-06-17 | Outpatient (CLI) | payer MEDICARE, OTHER | END | disposition home or self-care (01) | LOC: PMGWOUND 12:47 | DX: E11.621 Type 2 diabetes mellitus with foot ulcer (principal); L97.421 Non-pressure chronic ulcer of left heel and midfoot limited to breakdown of skin; I48.91 Unspecified atrial fibrillation; E78.5 Hyperlipidemia, unspecified; I10 Essential (primary) hypertension; Z95.1 Presence of aortocoronary bypass graft; Z86.73 Personal history of transient ischemic attack (TIA), and cerebral infarction without residual deficits | CPT/HCPCS: 97597 ==

== ENCOUNTER → 2017-07-02 | Outpatient (CLI) | payer MEDICARE, OTHER | END | disposition home or self-care (01) | LOC: PMGWOUND 10:58 | DX: E11.621 Type 2 diabetes mellitus with foot ulcer (principal); L97.421 Non-pressure chronic ulcer of left heel and midfoot limited to breakdown of skin; I48.91 Unspecified atrial fibrillation; E78.5 Hyperlipidemia, unspecified; I10 Essential (primary) hypertension; Z95.1 Presence of aortocoronary bypass graft; Z86.73 Personal history of transient ischemic attack (TIA), and cerebral infarction without residual deficits | CPT/HCPCS: 97597 ==

== ENCOUNTER 2017-07-24 16:07 | Observation (INO) | payer OTHER ==
[2017-07-24 19:04] LABS: ADD MAN DIFF? NO
[2017-07-24 19:09] LABS: BASO # 0.1 x10^3/uL (0.0-0.2); BASO % 1 % (0-3); EOS # 0.4 x10^3/uL (0.0-0.7); EOS % 5 % (0-3); HEMATOCRIT 37.2 % (36.0-47.0); HEMOGLOBIN 12.6 g/dL (12.0-15.5); LYMPH # 2.4 x10^3/uL (1.0-4.8); LYMPH % 31 % (24-48); MEAN CORPUSCULAR HEMOGLOBIN 31 pg (25-35); MEAN CORPUSCULAR HGB CONC 34 g/dL (31-37); MEAN CORPUSCULAR VOLUME 91 fL (79-100); MONO # 0.6 x10^3/uL (0.0-1.1); MONO % 7 % (0-9); NEUT # 4.4 x10^3uL (1.8-7.7); NEUT % 56 % (31-73); PLATELET COUNT 237 x10^3/uL (140-400); RED BLOOD COUNT 4.11 x10^6/uL (3.50-5.40); RED CELL DISTRIBUTION WIDTH 14.8 % (11.5-14.5); WHITE BLOOD COUNT 7.8 x10^3/uL (4.0-11.0)
[2017-07-24] MEDS: IV DEXTROSE 5 %-0.45 % NACL 1,000 ML IV (19:16)
[2017-07-24] MEDS ORDERED: ONDANSETRON PF 4 MG/2 ML VIAL. IV (23:00)
[2017-07-24] MEDS ORDERED: fentaNYL PF VIAL 100 MCG/2 ML VIAL IV (23:00)
[2017-07-25 03:22] LABS: ANION GAP 9 (6-14); BLOOD UREA NITROGEN 20 mg/dL (7-20); CALCIUM 8.6 mg/dL (8.5-10.1); CARBON DIOXIDE 27 mmol/L (21-32); CHLORIDE 105 mmol/L (98-107); CREATININE 0.8 mg/dL (0.6-1.0); GFR 85.3; GLUCOSE 314 mg/dL (70-99); POTASSIUM 3.5 mmol/L (3.5-5.1); SODIUM 141 mmol/L (136-145)
[2017-07-25 07:32] LABS: POC GLUCOSE 112 mg/dL (70-99)
[2017-07-25] MEDS ORDERED: ACETAMINOPHEN 650 MG/20.3 ML SOLUTION. PEG (10:30)
[2017-07-25] MEDS: POTASSIUM CL 20MEQ D5-0.45NACL 1,000 ML IV (10:59)
[2017-07-25] MEDS ORDERED: amLODIPine BESYLATE 10 MG TABLET PO (11:00)
[2017-07-25 11:30] LABS: INR 1.1 (0.8-1.1); PROTHROMBIN TIME PATIENT 13.2 SEC (11.7-14.0)
[2017-07-25] MEDS: ceFAZolin SODIUM IV Push 1 GM VIAL. IVP (12:08)
[2017-07-25] MEDS ORDERED: ceFAZolin SODIUM 1 GM in IV DEXTROSE 5% 50 ML IV (12:30)
[2017-07-25] MEDS ORDERED: PROPOFOL 20 ML IV (14:17)
[2017-07-25] MEDS: LANSOPRAZOLE 30 MG TAB.RAP.DR PEG (17:18)
[2017-07-25] MEDS: FUROSEMIDE 20 MG TABLET PEG (17:18)
[2017-07-25] MEDS: hydrALAZINE 25 MG TABLET PEG ×2 (17:19→20:50)
[2017-07-25] MEDS: ISOSORBIDE DINITRATE 10 MG TABLET. PEG ×2 (17:19→20:50)
[2017-07-25] MEDS: LOSARTAN POTASSIUM 50 MG TABLET. PEG (17:19)
[2017-07-25] MEDS: ASPIRIN CHEWABLE 81 MG TABLET. PEG (17:19)
[2017-07-25 19:31] LABS: POC GLUCOSE 117 mg/dL (70-99)
[2017-07-25] MEDS: ATORVASTATIN CALCIUM 20 MG TABLET PEG (20:50)
[2017-07-26 00:10] LABS: POC GLUCOSE 125 mg/dL (70-99)
[2017-07-26 04:16] LABS: ADD MAN DIFF? NO
[2017-07-26 04:28] LABS: BASO # 0.1 x10^3/uL (0.0-0.2); BASO % 1 % (0-3); EOS # 0.3 x10^3/uL (0.0-0.7); EOS % 4 % (0-3); HEMOGLOBIN 11.5 g/dL (12.0-15.5); LYMPH # 2.5 x10^3/uL (1.0-4.8); LYMPH % 30 % (24-48); MEAN CORPUSCULAR HEMOGLOBIN 31 pg (25-35); MEAN CORPUSCULAR HGB CONC 35 g/dL (31-37); MEAN CORPUSCULAR VOLUME 90 fL (79-100); MONO # 0.6 x10^3/uL (0.0-1.1); MONO % 7 % (0-9); NEUT # 4.8 x10^3uL (1.8-7.7); NEUT % 58 % (31-73); PLATELET COUNT 225 x10^3/uL (140-400); RED BLOOD COUNT 3.68 x10^6/uL (3.50-5.40); RED CELL DISTRIBUTION WIDTH 14.4 % (11.5-14.5); WHITE BLOOD COUNT 8.2 x10^3/uL (4.0-11.0)
[2017-07-26 05:01] LABS: ANION GAP 6 (6-14); BLOOD UREA NITROGEN 25 mg/dL (7-20); CARBON DIOXIDE 27 mmol/L (21-32); CHLORIDE 106 mmol/L (98-107); CREATININE 0.8 mg/dL (0.6-1.0); GFR 85.3; GLUCOSE 120 mg/dL (70-99); POTASSIUM 3.8 mmol/L (3.5-5.1); SODIUM 139 mmol/L (136-145)
[2017-07-26 06:00] LABS: POC GLUCOSE 110 mg/dL (70-99)
[2017-07-26] MEDS: hydrALAZINE 25 MG TABLET PEG ×2 (09:47→14:43)
[2017-07-26] MEDS: ASPIRIN CHEWABLE 81 MG TABLET. PEG (09:47)
[2017-07-26] MEDS: LOSARTAN POTASSIUM 50 MG TABLET. PEG (09:48)
[2017-07-26] MEDS: ISOSORBIDE DINITRATE 10 MG TABLET. PEG ×2 (09:49→14:42)
[2017-07-26] MEDS: FUROSEMIDE 20 MG TABLET PEG (09:49)
[2017-07-26] MEDS: LANSOPRAZOLE 30 MG TAB.RAP.DR PEG (09:50)
[2017-07-26] MEDS: amLODIPine BESYLATE 10 MG TABLET PEG (09:50)
[2017-07-26 12:16] LABS: POC GLUCOSE 137 mg/dL (70-99)
[2017-07-26] MEDS ORDERED: ATORVASTATIN CALCIUM 40 MG TABLET. PEG (21:00)
== END 2017-07-26 19:30 | disposition home health service (06) ==
LOC: ER 16:07 → 5 NORTH 17:47
DX: K94.23 Gastrostomy malfunction (principal); K21.0 Gastro-esophageal reflux disease with esophagitis; E11.51 Type 2 diabetes mellitus with diabetic peripheral angiopathy without gangrene; E78.00 Pure hypercholesterolemia, unspecified; E78.5 Hyperlipidemia, unspecified; I11.0 Hypertensive heart disease with heart failure; I50.22 Chronic systolic (congestive) heart failure; I25.10 Atherosclerotic heart disease of native coronary artery without angina pectoris; I42.9 Cardiomyopathy, unspecified; I25.2 Old myocardial infarction; I48.1 Persistent atrial fibrillation; Z82.49 Family history of ischemic heart disease and other diseases of the circulatory system; Z86.73 Personal history of transient ischemic attack (TIA), and cerebral infarction without residual deficits; Z87.442 Personal history of urinary calculi; Z95.1 Presence of aortocoronary bypass graft; Z43.1 Encounter for attention to gastrostomy; Z98.61 Coronary angioplasty status; Y83.8 Other surgical procedures as the cause of abnormal reaction of the patient, or of later complication, without mention of misadventure at the time of the procedure; Y82.8 Other medical devices associated with adverse incidents
CPT/HCPCS: 36415; 71045; 74018; 76770; 80048; 82962; 85025; 85610; 99285; G0378; G0379; J0690; J2704

== ENCOUNTER → 2017-09-17 | Outpatient (CLI) | payer OTHER | END | disposition home or self-care (01) | LOC: PMGWOUND 09:40 | DX: E11.621 Type 2 diabetes mellitus with foot ulcer (principal); L97.421 Non-pressure chronic ulcer of left heel and midfoot limited to breakdown of skin; E11.51 Type 2 diabetes mellitus with diabetic peripheral angiopathy without gangrene; I11.0 Hypertensive heart disease with heart failure; I50.22 Chronic systolic (congestive) heart failure; I25.2 Old myocardial infarction; I25.10 Atherosclerotic heart disease of native coronary artery without angina pectoris; E78.00 Pure hypercholesterolemia, unspecified; I48.91 Unspecified atrial fibrillation; E78.5 Hyperlipidemia, unspecified; E66.9 Obesity, unspecified; G81.90 Hemiplegia, unspecified affecting unspecified side; Z95.1 Presence of aortocoronary bypass graft; Z86.73 Personal history of transient ischemic attack (TIA), and cerebral infarction without residual deficits; Z68.30 Body mass index [BMI] 30.0-30.9, adult | CPT/HCPCS: 97597 ==

== ENCOUNTER → 2017-10-08 | Outpatient (CLI) | payer OTHER | END | disposition home or self-care (01) | LOC: PMGWOUND 12:09 | DX: E11.621 Type 2 diabetes mellitus with foot ulcer (principal); L97.421 Non-pressure chronic ulcer of left heel and midfoot limited to breakdown of skin; I48.91 Unspecified atrial fibrillation; E78.5 Hyperlipidemia, unspecified; E66.9 Obesity, unspecified; I25.2 Old myocardial infarction; I11.0 Hypertensive heart disease with heart failure; I50.22 Chronic systolic (congestive) heart failure; E78.00 Pure hypercholesterolemia, unspecified; E11.51 Type 2 diabetes mellitus with diabetic peripheral angiopathy without gangrene; Z95.1 Presence of aortocoronary bypass graft; Z85.068 Personal history of other malignant neoplasm of small intestine; Z86.73 Personal history of transient ischemic attack (TIA), and cerebral infarction without residual deficits; Z89.611 Acquired absence of right leg above knee; Z68.30 Body mass index [BMI] 30.0-30.9, adult | CPT/HCPCS: 97597 ==

== ENCOUNTER 2017-11-22 19:34 | Inpatient (IN) | payer OTHER ==
[~2017-11-22] VITALS: Ht 157.5 cm; Wt 75.5 kg
[~2017-11-22 19:34] MED LIST changes: -AMLO10TA2 PEG; +AMLO10TA6 PEG; -AMLO5TAB2 PEG; +AMLO5TAB7 PEG; -ASPI81TA44 PO; +ASPI81TA59 PO; -IV RINGERS,LACTATED 1000ML 1,000 ML IV SCH; +LISI-130 PO; -LISI40TA PO; -LOSA100T6 PO; +LOSA100T7 PO; -LOSA50TA6 PEG; +LOSA50TA7 PEG; +METO-247 PO; -METO100T11 PO; -PROPOFOL 20 ML IV ONE
[2017-11-22] MEDS ORDERED: FUROSEMIDE 40 MG TABLET. PO ONE (20:30)
--- NOTE | 2017-11-22 20:40 | RAD ---
EXAM: Chest, single view. HISTORY: Shortness of breath. COMPARISON: 07/25/2017 FINDINGS: A frontal view of the chest is obtained. There is stable diffuse increased interstitial opacity suggesting trace congestion. There is no consolidation, pleural effusion or pneumothorax. There is cardiomegaly and evidence of prior CABG. There is an tortuous atherosclerotic thoracic aorta. IMPRESSION: Stable suspected trace congestion. Cardiomegaly. Electronically signed by: Kristyn Price MD (11/22/2017 8:36 PM) [facility]
[2017-11-22 21:18] LABS: BASO % 1 % (0-3); EOS # 0.1 x10^3/uL (0.0-0.7); EOS % 2 % (0-3); HEMATOCRIT 39.7 % (36.0-47.0); HEMOGLOBIN 13.5 g/dL (12.0-15.5); LYMPH # 1.4 x10^3/uL (1.0-4.8); LYMPH % 22 % (24-48); MEAN CORPUSCULAR HEMOGLOBIN 31 pg (25-35); MEAN CORPUSCULAR HGB CONC 34 g/dL (31-37); MEAN CORPUSCULAR VOLUME 91 fL (79-100); MONO # 0.5 x10^3/uL (0.0-1.1); MONO % 8 % (0-9); NEUT # 4.1 x10^3uL (1.8-7.7); NEUT % 67 % (31-73); PLATELET COUNT 178 x10^3/uL (140-400); RED BLOOD COUNT 4.37 x10^6/uL (3.50-5.40); RED CELL DISTRIBUTION WIDTH 14.5 % (11.5-14.5); WHITE BLOOD COUNT 6.2 x10^3/uL (4.0-11.0)
[2017-11-22 21:30] LABS: CALCIUM 9.3 mg/dL (8.5-10.1); CREATININE 1.2 mg/dL (0.6-1.0); GFR 53.3; POTASSIUM 4.3 mmol/L (3.5-5.1)
[2017-11-22] MEDS ORDERED: FUROSEMIDE 40 MG/4 ML VIAL. IVP ONE (21:30)
[2017-11-22 21:40] LABS: ALBUMIN 2.7 g/dL (3.4-5.0); ALBUMIN/GLOBULIN RATIO 0.6 (1.0-1.7); TOTAL BILIRUBIN 0.4 mg/dL (0.2-1.0); TOTAL PROTEIN 7.6 g/dL (6.4-8.2)
[2017-11-22 21:55] LABS: BILIRUBIN,URINE NEGATIVE (NEG); CLARITY,URINE CLEAR; COLOR,URINE YELLOW; NITRITE,URINE POSITIVE (NEG); PROTEIN,URINE 30 mg/dL (NEG-TRACE)
[2017-11-22 22:00] LABS: CREATINE KINASE 67 U/L (26-192)
[2017-11-22 22:04] LABS: BACTERIA,URINE MODERATE /HPF (0-FEW); SQUAMOUS EPITHELIAL CELL,UR FEW /LPF
[2017-11-22] MEDS ORDERED: fentaNYL PF VIAL 100 MCG/2 ML VIAL IV PRN (22:30)
--- NOTE | 2017-11-22 22:38 | PHYS DOC ---
Past Medical History Past Medical History: Anemia, CAD, CHF, Constipation, CVA, Diabetes-Type II, High Cholesterol, Heart Disease, Hypertension, [place], Additional Disease, Other Additional Past Medical Histor: R sided deficits d/t CVA, non-verbal Past Surgical History: Coronary Bypass Surgery, Other Additional Past Surgical Histo: leg vein, R AKA, PEG tube Alcohol Use: None Drug Use: None Adult General Chief Complaint Chief Complaint: SHORTNESS OF BREATH HPI HPI Patient is a 72 year old female who presents with increased work of breathing noticed by the family. The patient was at home when her daughter felt like she was not breathing as well. She states that she seemed to be working harder to breathe. The patient is nonverbal from a prior stroke. She does have history of congestive heart failure. They called EMS to have her transported to the hospital for further evaluation and workup. Review of Systems Review of Systems The patient is unable to give a review of systems due to her condition. Current Medications Current Medications Current Medications Medications (Trade) Dose Ordered Sig/Courtney Start Time Stop Time Status Last Admin Dose Admin Fentanyl Citrate (Fentanyl 2ml Vial) 50 mcg PRN Q2HR PRN 11/22/17 22:30 11/23/17 22:29 Furosemide (Lasix) 40 mg 1X ONCE 11/22/17 21:30 11/22/17 21:31 DC 11/22/17 21:35 40 MG Allergies Allergies Allergies Coded Allergies Type Severity Reaction Last Updated Verified No Known Medication Allergies Allergy Unknown 07/25/17 Yes Physical Exam Physical Exam Constitutional: Well developed, well nourished, no acute distress, non-toxic appearance. [] HENT: Normocephalic, atraumatic, bilateral external ears normal, oropharynx moist, no oral exudates, nose normal. [] Eyes: PERRLA, EOMI, conjunctiva normal, no discharge. [] Neck: Normal range of motion, no tenderness, supple, no stridor. [] Cardiovascular:Heart rate regular rhythm, no murmur [] Lungs & Thorax: Bilateral breath sounds and crackles to bilateral bases Abdomen: Bowel sounds normal, soft, no tenderness, no masses, no pulsatile masses. [] Skin: Warm, dry, no erythema, no rash. [] Back: No tenderness, no CVA tenderness. [] Extremities: No tenderness, no cyanosis, no clubbing, ROM intact, no edema. [] Neurologic: Alert and oriented X 3, normal motor function, normal sensory function, no focal deficits noted. [] Psychologic: Affect normal, judgement normal, mood normal. [] Current Patient Data Vital Signs Vital Signs Date Time Temp Pulse Resp B/P (MAP) Pulse Ox O2 Delivery O2 Flow Rate FiO2 11/22/17 22:24 87 171/79 (109) 97 Nasal Cannula 2.0 11/22/17 19:34 98.8 22 98.8 Lab Values Laboratory Tests Test 11/22/17 21:05 11/22/17 21:45 White Blood Count 6.2 x10^3/uL (4.0-11.0) Red Blood Count 4.37 x10^6/uL (3.50-5.40) Hemoglobin 13.5 g/dL (12.0-15.5) Hematocrit 39.7 % (36.0-47.0) Mean Corpuscular Volume 91 fL (79-100) Mean Corpuscular Hemoglobin 31 pg (25-35) Mean Corpuscular Hemoglobin Concent 34 g/dL (31-37) Red Cell Distribution Width 14.5 % (11.5-14.5) Platelet Count 178 x10^3/uL (140-400) Neutrophils (%) (Auto) 67 % (31-73) Lymphocytes (%) (Auto) 22 % (24-48) L Monocytes (%) (Auto) 8 % (0-9) Eosinophils (%) (Auto) 2 % (0-3) Basophils (%) (Auto) 1 % (0-3) Neutrophils # (Auto) 4.1 x10^3uL (1.8-7.7) Lymphocytes # (Auto) 1.4 x10^3/uL (1.0-4.8) Monocytes # (Auto) 0.5 x10^3/uL (0.0-1.1) Eosinophils # (Auto) 0.1 x10^3/uL (0.0-0.7) Basophils # (Auto) 0.0 x10^3/uL (0.0-0.2) Sodium Level 133 mmol/L (136-145) L Potassium Level 4.3 mmol/L (3.5-5.1) Chloride Level 101 mmol/L (98-107) Carbon Dioxide Level 27 mmol/L (21-32) Anion Gap 5 (6-14) L Blood Urea Nitrogen 25 mg/dL (7-20) H Creatinine 1.2 mg/dL (0.6-1.0) H Estimated GFR (Cockcroft-Gault) 53.3 BUN/Creatinine Ratio 21 (6-20) H Glucose Level 114 mg/dL (70-99) H Calcium Level 9.3 mg/dL (8.5-10.1) Total Bilirubin 0.4 mg/dL (0.2-1.0) Aspartate Amino Transferase (AST) 32 U/L (15-37) Alanine Aminotransferase (ALT) 29 U/L (14-59) Alkaline Phosphatase 163 U/L (46-116) H Creatine Kinase 67 U/L (26-192) Creatine Kinase MB (Mass) 0.6 ng/mL (0.0-3.6) Creatine Kinase MB Relative Index % (0-4) Troponin I Quantitative 0.051 ng/mL (0.000-0.055) [id number]-Type Natriuretic Peptide 1831 pg/mL (0-124) H Total Protein 7.6 g/dL (6.4-8.2) Albumin 2.7 g/dL (3.4-5.0) L Albumin/Globulin Ratio 0.6 (1.0-1.7) L Urine Collection Type U cath Urine Color Yellow Urine Clarity Clear Urine pH 6.0 Urine Specific [place] 1.020 Urine Protein 30 mg/dL (NEG-TRACE) Urine Glucose (UA) Negative mg/dL (NEG) Urine Ketones (Stick) Negative mg/dL (NEG) Urine Blood Negative (NEG) Urine Nitrite Positive (NEG) Urine Bilirubin Negative (NEG) Urine Urobilinogen Dipstick 1.0 mg/dL (0.2 mg/dL) Urine Leukocyte Esterase Large (NEG) Urine RBC 1-2 /HPF (0-2) Urine WBC 11-20 /HPF (0-4) Urine Squamous Epithelial Cells Few /LPF Urine Bacteria Moderate /HPF (0-FEW) Urine Mucus Slight /LPF Laboratory Tests 11/22/17 21:05 Laboratory Tests 11/22/17 21:05 EKG EKG [] Radiology/Procedures Radiology/Procedures [] Course & Med Decision Making Course & Med Decision Making Pertinent Labs and Imaging studies reviewed. (See chart for details) []The patient has been noted to have a large UTI as well as an elevated BNP. The patient will be admitted to Dr. Valle for further treatment of her condition. Dragon Disclaimer Dragon Disclaimer This electronic medical record was generated, in whole or in part, using a voice recognition dictation system. Departure Departure Impression: Primary Impression: CHF exacerbation Additional Impression: UTI (urinary tract infection) Disposition: ADMITTED INPATIENT Admitting Physician: Clovis Valle Condition: GOOD Problem Qualifiers EMERALD OHARA INSTRUMENT ENGINEER Nov 22, 2017 22:38
[2017-11-22] MEDS ORDERED: ACETAMINOPHEN 650 MG/20.3 ML SOLUTION. PEG PRN (23:15)
[2017-11-22 23:47] VITALS: BP 125/61
[2017-11-23] MEDS: ACETAMINOPHEN 650 MG/20.3 ML SOLUTION. PEG PRN ×2 (00:05→20:53)
[2017-11-23 03:59] VITALS: BP_SYST 125; BP_SYST 141; BP_DIAS 70
[2017-11-23 07:00] VITALS: BP 122/71
[2017-11-23] MEDS ORDERED: LANSOPRAZOLE 30 MG TAB.RAP.DR FT SCH (07:30)
[2017-11-23] MEDS ORDERED: ASPIRIN CHEWABLE 81 MG TABLET. PO SCH (08:00)
[2017-11-23 08:24] LABS: BASO % 1 % (0-3); EOS # 0.2 x10^3/uL (0.0-0.7); EOS % 3 % (0-3); HEMATOCRIT 31.5 % (36.0-47.0); HEMOGLOBIN 10.9 g/dL (12.0-15.5); LYMPH # 2.1 x10^3/uL (1.0-4.8); LYMPH % 33 % (24-48); MEAN CORPUSCULAR HEMOGLOBIN 31 pg (25-35); MEAN CORPUSCULAR HGB CONC 35 g/dL (31-37); MEAN CORPUSCULAR VOLUME 91 fL (79-100); MONO # 0.7 x10^3/uL (0.0-1.1); MONO % 12 % (0-9); NEUT # 3.2 x10^3uL (1.8-7.7); NEUT % 51 % (31-73); PLATELET COUNT 181 x10^3/uL (140-400); RED BLOOD COUNT 3.48 x10^6/uL (3.50-5.40); RED CELL DISTRIBUTION WIDTH 14.6 % (11.5-14.5); WHITE BLOOD COUNT 6.2 x10^3/uL (4.0-11.0)
[2017-11-23 08:53] LABS: CALCIUM 8.4 mg/dL (8.5-10.1); CREATININE 1.4 mg/dL (0.6-1.0); GFR 44.6; POTASSIUM 3.8 mmol/L (3.5-5.1)
[2017-11-23] MEDS: FUROSEMIDE 20 MG TABLET PEG SCH (08:56)
[2017-11-23] MEDS: CHOLECALCIFEROL (VITAMIN D3) 1,000 UNIT TABLET GT SCH (08:56)
[2017-11-23] MEDS: POTASSIUM CHLORIDE 20 MEQ/15 ML ORAL LIQUID. PEG SCH (08:56)
[2017-11-23] MEDS: ISOSORBIDE DINITRATE 10 MG TABLET. PEG SCH ×3 (08:56→20:49)
[2017-11-23] MEDS: LOSARTAN POTASSIUM 50 MG TABLET. PEG SCH (08:57)
[2017-11-23] MEDS: hydrALAZINE 25 MG TABLET PEG SCH ×3 (08:58→20:49)
--- NOTE | 2017-11-23 10:31 | EKG ---
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
[2017-11-23 11:00] VITALS: BP 114/65
[2017-11-23] MEDS ORDERED: MAGNESIUM HYDROXIDE 2,400 MG/30 ML ORAL.SUSP. PEG PRN (11:15)
--- NOTE | 2017-11-23 11:30 | PDOC ---
Provider Note Provider Note history and physical dictated # [id number] IRWIN BELLO MD Nov 23, 2017 11:29
[2017-11-23] MEDS: cefTRIAXone IV Push 1 GM VIAL. IVP SCH (11:34)
--- NOTE | 2017-11-23 13:53 | HP ---
ADMIT DATE: 11/23/2017 LOCATION: Room 550. 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, oropharyngeal dysphagia, expressive aphasia, maintaining gastrostomy tube feeding, who has a history of diabetes mellitus type 2, treated with diet; hypertension, hyperlipidemia, coronary artery disease, cardiomyopathy with left ventricular ejection fraction of 40-45%, peripheral arterial disease with previous right below knee amputation, paroxysmal atrial fibrillation but not a candidate for anticoagulation with a history of recurrent gross hematuria when receiving anticoagulation in the past who has a chronic Saab catheter, who was admitted to [facility] through the Emergency Room on 11/22/2017 with a history of shortness of breath. The patient's chest x-ray showed borderline congestive heart failure and she received 40 mg Lasix IV in the Emergency Room. She was noted to have pyuria and received 1 gram of Rocephin IV in the Emergency Room and a urine culture was ordered. The patient is not short of breath at this time, is lying flat on her back and aphasic, cannot give any type of history and there is no family member in the room at the time that I was there. The patient is therefore admitted for further evaluation of her shortness of breath and pyuria. ALLERGIES AND INTOLERANCES: None. MEDICATIONS: Prior to admission include amlodipine 10 mg every day, aspirin 81 mg every day, atorvastatin 40 mg every day, furosemide 20 mg every day, hydralazine 25 mg t.i.d., isosorbide dinitrate 20 mg t.i.d., losartan 100 mg every day, Prevacid 30 mg every day, potassium chloride 20 mEq every day. I am not sure about the amlodipine, will have to check on it. She was on it during her last hospital course, but it is not written in her medication list so far in the hospital. She is also on Jevity 1.5 five cans a day, water 250 mL 5 times a day through her gastrostomy tube. PAST MEDICAL HISTORY: Significant for cerebrovascular accident late effects with oropharyngeal dysphagia, expressive aphasia, right-sided hemiparesis, maintaining gastrostomy tube feeding boluses with a history of an upper gastrointestinal bleed secondary to a duodenal ulcer in 2013. She has paroxysmal atrial fibrillation, not a candidate for Coumadin as she has had recurrent gross hematuria in the past when she was given Coumadin on several occasions. She has diabetes mellitus type 2, treated with diet; hypertension, hyperlipidemia, coronary artery disease, cardiomyopathy with left ventricular ejection fraction of 40-45% in the past and a history of coronary angioplasty for a circumflex coronary artery in 2013. She has had coronary bypass graft surgery in 1995. She does have coronary artery disease and peripheral arterial disease with a right below-knee amputation. She has a neurogenic bladder, treated with a chronic Saab catheter. She has chronic systolic congestive heart failure. She had Proteus sepsis in 10/2016, had a cholecystectomy in the past. She has a gastrostomy tube. SOCIAL HISTORY: She is cared for by her daughter at home. Does not drink alcohol nor does she smoke cigarettes. FAMILY HISTORY: Noncontributory. REVIEW OF SYSTEMS: Unobtainable due to her aphasia. PHYSICAL EXAMINATION: VITAL SIGNS: Temperature is 98 degrees, apical pulse 66, respiratory rate 24, blood pressure 122/71, oxygen saturation 98% on 2 liters per nasal cannula. HEENT: Eyes: Gaze is conjugate. Mouth: She has got right-sided facial weakness. She did not open up her mouth. She sounds like she has some secretions in her oropharynx. She did not open up her mouth on command. NECK: No cervical lymphadenopathy. HEART: Reveals an S1, S2. There is no S3 or murmur. LUNGS: Clear anteriorly, but she has got some rhonchi from her oropharyngeal secretions. I think it is coming from the oropharynx. ABDOMEN: Soft, bowel sounds positive. She has got a gastrostomy tube. EXTREMITIES: Lower extremities, she has got a right above-knee amputation, stump looks okay. Left lower extremity, she has got a very minimal left heel wound and it is very superficial. NEUROLOGIC: She attempted to smile and she has got the right-sided hemiparesis. She cannot move her right arm and right leg. She did not move her left arm or left leg on my command. GENITOURINARY: She has got a Saab catheter. SKIN: No rashes. LABORATORY DATA: White count was 6.2, hemoglobin 10.9 with a platelet count of 181,000 with 51 polys and 23 lymphocytes. Hemoglobin was 13.5 last night. Sodium 137, potassium 3.8, chloride 104, total CO2 of 29, BUN 25, creatinine 1.4, blood sugar 101. The albumin was 2.7. Liver function tests were okay except for an alkaline phosphatase 163. ProBNP was increased at 1831. Troponin level 0.05. CPK was 67. Urinalysis showed 11-20 white cells, 1-2 red blood cells. She had an EKG done, which showed normal sinus rhythm, appears to have a left bundle branch block. Chest x-ray showed suspected lung congestion and cardiomegaly. ASSESSMENT: 1. Acute on chronic systolic congestive heart failure, which appears to be compensated right now. 2. Cardiomyopathy. 3. Coronary artery disease with previous coronary artery bypass graft surgery and a coronary angioplasty to circumflex coronary artery in the past. 4. Peripheral arterial disease. 5. 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 6. PEG tube feedings. 7. History of right above-knee amputation. 8. Paroxysmal atrial fibrillation, but not a Coumadin candidate. 9. Diabetes mellitus type 2, treated with diet. 10. Hypertension. 11. Hyperlipidemia. 12. Severe protein calorie malnutrition. 13. Chronic kidney disease stage 3. 14. Pyuria. PLAN: At this time is to consult Dr. Dixon for Cardiology, obtain an echocardiogram, order SCDs for deep vein thrombosis prophylaxis. Continue with her home medications. We will have the nurse find out if she is on amlodipine 10 mg every day and if so we will order it. Wound Care team will take a look at her. She will be turned in bed frequently by the nursing staff and also do oropharyngeal suctioning if she allows as needed per nurse or Respiratory Therapy if necessary. Wait for the urine culture results. We will continue with IV Rocephin. Recheck her labs again tomorrow including a CBC, BMP, hemoglobin A1c and lipid profile. She was given furosemide 40 mg x 1 through the PEG and an hour later received 40 mg Lasix IV x 1 in the Emergency Room. Apparently, she is on furosemide 20 mg every day through her PEG, which is what she was on at home. Elevate the head to 45 degrees. She is a full code. IRWIN BELLO MD DR: ARMIDA/herb JOB#: [id number] / [id number]
[2017-11-23 15:00] VITALS: BP 116/66
[2017-11-23] MEDS ORDERED: amLODIPine BESYLATE 10 MG TABLET PO SCH (18:00)
[2017-11-23 19:00] VITALS: BP 132/73
[2017-11-23] MEDS: ATORVASTATIN CALCIUM 40 MG TABLET. PEG SCH (20:49)
[2017-11-23 22:48] VITALS: BP 124/66
[2017-11-24 03:00] VITALS: BP 133/76
[2017-11-24 03:51] LABS: BASO % 0 % (0-3); EOS # 0.3 x10^3/uL (0.0-0.7); EOS % 5 % (0-3); HEMATOCRIT 29.8 % (36.0-47.0); HEMOGLOBIN 10.3 g/dL (12.0-15.5); LYMPH # 2.5 x10^3/uL (1.0-4.8); LYMPH % 40 % (24-48); MEAN CORPUSCULAR HEMOGLOBIN 32 pg (25-35); MEAN CORPUSCULAR HGB CONC 35 g/dL (31-37); MEAN CORPUSCULAR VOLUME 91 fL (79-100); MONO # 0.6 x10^3/uL (0.0-1.1); MONO % 9 % (0-9); NEUT # 2.9 x10^3uL (1.8-7.7); NEUT % 46 % (31-73); PLATELET COUNT 190 x10^3/uL (140-400); RED BLOOD COUNT 3.27 x10^6/uL (3.50-5.40); RED CELL DISTRIBUTION WIDTH 14.6 % (11.5-14.5); WHITE BLOOD COUNT 6.3 x10^3/uL (4.0-11.0)
[2017-11-24 04:05] LABS: CALCIUM 8.4 mg/dL (8.5-10.1); CREATININE 1.3 mg/dL (0.6-1.0); GFR 48.6; POTASSIUM 4.2 mmol/L (3.5-5.1)
[2017-11-24 04:29] LABS: CHOLESTEROL/HDL RATIO 2.4
[2017-11-24 07:00] VITALS: BP 141/82
--- NOTE | 2017-11-24 08:55 | PDOC ---
PROGRESS NOTES Subjective Subjective discussed with daughter. she has upper airway wheezes/rhonchi and does not open her mouth for suctioning. had nasal pharyngeal suctioning with some bloody secretions. lab reviewed. blood sugars are okay. blood pressure is okay. not short of breath. urine culture pending. afebrile. Objective Objective Vital Signs Date Time Temp Pulse Resp B/P (MAP) Pulse Ox O2 Delivery O2 Flow Rate FiO2 11/24/17 07:00 98.0 75 18 141/82 (101) 96 2L 98.0 11/24/17 03:00 2.0 Intake and Output 11/24/17 07:00 Intake Total 360 ml Output Total 750 ml Balance -390 ml Intake Oral 0 ml Tube Feeding 240 ml Other 120 ml Output Urine Total 750 ml # Bowel Movements 1 Physical Exam Abdomen: Soft, Other (PEG) Heart: Regular rate, Normal S1, Normal S2 Extremities: No edema, Other (right AKA) General: Alert HEENT: Atraumatic Lungs: Other (upper airway rhonchi and wheezes noted in neck) Neuro: Other (expessive aphasia with right sided hemiparesis) Psych/Mental Status: Mood NL Skin: Other (mild tape rash RUE) Assessment Assessment Problems1. Acute on chronic systolic congestive heart failure, which appears to be compensated right now. 2. Cardiomyopathy. 3. Coronary artery disease with previous coronary artery bypass graft surgery and a coronary angioplasty to circumflex coronary artery in the past. 4. Peripheral arterial disease. 5. 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 6. PEG tube feedings. 7. History of right above-knee amputation. 8. Paroxysmal atrial fibrillation, but not a Coumadin candidate. 9. Diabetes mellitus type 2, treated with diet. 10. Hypertension. 11. Hyperlipidemia. 12. Severe protein calorie malnutrition. 13. Chronic kidney disease stage 3. 14. Pyuria upper airway rhonchi /wheezes. unclear if she has retained secretions in oral pharynx Medical Problems: (1) CHF exacerbation Status: Acute (2) UTI (urinary tract infection) Status: Acute Plan Plan of Care start budesonide and duoneb nebulizer rx start iv solumedrol consult consult dr. barba ENT continue iv rocephin await urine culture continue bolus tube feeding and water flushes cxr today discussed with daughter Comment Review of Relevant I have reviewed the following items sarah (where applicable) has been applied. Labs Laboratory Tests Test 11/22/17 21:05 11/22/17 21:45 11/23/17 07:25 11/24/17 02:40 White Blood Count 6.2 x10^3/uL (4.0-11.0) 6.2 x10^3/uL (4.0-11.0) 6.3 x10^3/uL (4.0-11.0) Red Blood Count 4.37 x10^6/uL (3.50-5.40) 3.48 x10^6/uL (3.50-5.40) 3.27 x10^6/uL (3.50-5.40) Hemoglobin 13.5 g/dL (12.0-15.5) 10.9 g/dL (12.0-15.5) 10.3 g/dL (12.0-15.5) Hematocrit 39.7 % (36.0-47.0) 31.5 % (36.0-47.0) 29.8 % (36.0-47.0) Mean Corpuscular Volume 91 fL (79-100) 91 fL (79-100) 91 fL (79-100) Mean Corpuscular Hemoglobin 31 pg (25-35) 31 pg (25-35) 32 pg (25-35) Mean Corpuscular Hemoglobin Concent 34 g/dL (31-37) 35 g/dL (31-37) 35 g/dL (31-37) Red Cell Distribution Width 14.5 % (11.5-14.5) 14.6 % (11.5-14.5) 14.6 % (11.5-14.5) Platelet Count 178 x10^3/uL (140-400) 181 x10^3/uL (140-400) 190 x10^3/uL (140-400) Neutrophils (%) (Auto) 67 % (31-73) 51 % (31-73) 46 % (31-73) Lymphocytes (%) (Auto) 22 % (24-48) 33 % (24-48) 40 % (24-48) Monocytes (%) (Auto) 8 % (0-9) 12 % (0-9) 9 % (0-9) Eosinophils (%) (Auto) 2 % (0-3) 3 % (0-3) 5 % (0-3) Basophils (%) (Auto) 1 % (0-3) 1 % (0-3) 0 % (0-3) Neutrophils # (Auto) 4.1 x10^3uL (1.8-7.7) 3.2 x10^3uL (1.8-7.7) 2.9 x10^3uL (1.8-7.7) Lymphocytes # (Auto) 1.4 x10^3/uL (1.0-4.8) 2.1 x10^3/uL (1.0-4.8) 2.5 x10^3/uL (1.0-4.8) Monocytes # (Auto) 0.5 x10^3/uL (0.0-1.1) 0.7 x10^3/uL (0.0-1.1) 0.6 x10^3/uL (0.0-1.1) Eosinophils # (Auto) 0.1 x10^3/uL (0.0-0.7) 0.2 x10^3/uL (0.0-0.7) 0.3 x10^3/uL (0.0-0.7) Basophils # (Auto) 0.0 x10^3/uL (0.0-0.2) 0.0 x10^3/uL (0.0-0.2) 0.0 x10^3/uL (0.0-0.2) Sodium Level 133 mmol/L (136-145) 137 mmol/L (136-145) 136 mmol/L (136-145) Potassium Level 4.3 mmol/L (3.5-5.1) 3.8 mmol/L (3.5-5.1) 4.2 mmol/L (3.5-5.1) Chloride Level 101 mmol/L (98-107) 104 mmol/L (98-107) 104 mmol/L (98-107) Carbon Dioxide Level 27 mmol/L (21-32) 29 mmol/L (21-32) 27 mmol/L (21-32) Anion Gap 5 (6-14) 4 (6-14) 5 (6-14) Blood Urea Nitrogen 25 mg/dL (7-20) 25 mg/dL (7-20) 33 mg/dL (7-20) Creatinine 1.2 mg/dL (0.6-1.0) 1.4 mg/dL (0.6-1.0) 1.3 mg/dL (0.6-1.0) Estimated GFR (Cockcroft-Gault) 53.3 44.6 48.6 BUN/Creatinine Ratio 21 (6-20) Glucose Level 114 mg/dL (70-99) 101 mg/dL (70-99) 101 mg/dL (70-99) Calcium Level 9.3 mg/dL (8.5-10.1) 8.4 mg/dL (8.5-10.1) 8.4 mg/dL (8.5-10.1) Total Bilirubin 0.4 mg/dL (0.2-1.0) Aspartate Amino Transf (AST/SGOT) 32 U/L (15-37) Alanine Aminotransferase (ALT/SGPT) 29 U/L (14-59) Alkaline Phosphatase 163 U/L (46-116) Creatine Kinase 67 U/L (26-192) Creatine Kinase MB (Mass) 0.6 ng/mL (0.0-3.6) Creatine Kinase MB Relative Index % (0-4) Troponin I Quantitative 0.051 ng/mL (0.000-0.055) NK-Nmc-T-Type Natriuretic Peptide 1831 pg/mL (0-124) Total Protein 7.6 g/dL (6.4-8.2) Albumin 2.7 g/dL (3.4-5.0) Albumin/Globulin Ratio 0.6 (1.0-1.7) Urine Collection Type U cath Urine Color Yellow Urine Clarity Clear Urine pH 6.0 Urine Specific [place] 1.020 Urine Protein 30 mg/dL (NEG-TRACE) Urine Glucose (UA) Negative mg/dL (NEG) Urine Ketones (Stick) Negative mg/dL (NEG) Urine Blood Negative (NEG) Urine Nitrite Positive (NEG) Urine Bilirubin Negative (NEG) Urine Urobilinogen Dipstick 1.0 mg/dL (0.2 mg/dL) Urine Leukocyte Esterase Large (NEG) Urine RBC 1-2 /HPF (0-2) Urine WBC 11-20 /HPF (0-4) Urine Squamous Epithelial Cells Few /LPF Urine Bacteria Moderate /HPF (0-FEW) Urine Mucus Slight /LPF Triglycerides Level 46 mg/dL (0-150) Cholesterol Level 115 mg/dL (0-200) LDL Cholesterol, Calculated 59 mg/dL (0-100) VLDL Cholesterol, Calculated 9 mg/dL (0-40) Non-HDL Cholesterol Calculated 68 mg/dL (0-129) HDL Cholesterol 47 mg/dL (40-60) Cholesterol/HDL Ratio 2.4 Laboratory Tests Test 11/24/17 02:40 White Blood Count 6.3 x10^3/uL (4.0-11.0) Red Blood Count 3.27 x10^6/uL (3.50-5.40) Hemoglobin 10.3 g/dL (12.0-15.5) Hematocrit 29.8 % (36.0-47.0) Mean Corpuscular Volume 91 fL (79-100) Mean Corpuscular Hemoglobin 32 pg (25-35) Mean Corpuscular Hemoglobin Concent 35 g/dL (31-37) Red Cell Distribution Width 14.6 % (11.5-14.5) Platelet Count 190 x10^3/uL (140-400) Neutrophils (%) (Auto) 46 % (31-73) Lymphocytes (%) (Auto) 40 % (24-48) Monocytes (%) (Auto) 9 % (0-9) Eosinophils (%) (Auto) 5 % (0-3) Basophils (%) (Auto) 0 % (0-3) Neutrophils # (Auto) 2.9 x10^3uL (1.8-7.7) Lymphocytes # (Auto) 2.5 x10^3/uL (1.0-4.8) Monocytes # (Auto) 0.6 x10^3/uL (0.0-1.1) Eosinophils # (Auto) 0.3 x10^3/uL (0.0-0.7) Basophils # (Auto) 0.0 x10^3/uL (0.0-0.2) Sodium Level 136 mmol/L (136-145) Potassium Level 4.2 mmol/L (3.5-5.1) Chloride Level 104 mmol/L (98-107) Carbon Dioxide Level 27 mmol/L (21-32) Anion Gap 5 (6-14) Blood Urea Nitrogen 33 mg/dL (7-20) Creatinine 1.3 mg/dL (0.6-1.0) Estimated GFR (Cockcroft-Gault) 48.6 Glucose Level 101 mg/dL (70-99) Calcium Level 8.4 mg/dL (8.5-10.1) Triglycerides Level 46 mg/dL (0-150) Cholesterol Level 115 mg/dL (0-200) LDL Cholesterol, Calculated 59 mg/dL (0-100) VLDL Cholesterol, Calculated 9 mg/dL (0-40) Non-HDL Cholesterol Calculated 68 mg/dL (0-129) HDL Cholesterol 47 mg/dL (40-60) Cholesterol/HDL Ratio 2.4 Medications Current Medications Furosemide (Lasix) 40 mg 1X ONCE PO ; Start 11/22/17 at 20:30; Stop 11/22/17 at 20:31; Status DC Furosemide (Lasix) 40 mg 1X ONCE IVP Last administered on 11/22/17at 21:35; Start 11/22/17 at 21:30; Stop 11/22/17 at 21:31; Status DC Fentanyl Citrate (Fentanyl 2ml Vial) 50 mcg PRN Q2HR PRN IV PAIN; Start at 22:30; Stop 11/23/17 at 22:29; Status DC Ceftriaxone Sodium 50 ml @ 100 mls/hr 1X ONCE IV Last administered on at 00:10; Start 11/22/17 at 23:15; Stop 11/22/17 at 23:44; Status DC Acetaminophen (Tylenol) 650 mg PRN Q6HRS PRN PEG MILD PAIN / TEMP; Start at 23:15; Stop 11/22/17 at 23:46; Status DC Aspirin (Children'S Aspirin) 81 mg DAILYWBKFT PO Last administered on at 08:57; Start 11/23/17 at 08:00; Stop 11/23/17 at 11:13; Status DC Atorvastatin Calcium (Lipitor) 40 mg QHS PEG Last administered on 11/23/17at 20: 49; Start 11/23/17 at 21:00 Vitamin D (Vitamin D3) 1,000 unit DAILY GT Last administered on 11/23/17at 08:56 ; Start 11/23/17 at 09:00 Furosemide (Lasix) 20 mg DAILY PEG Last administered on 11/23/17 08:56; Start 11/23/17 at 09:00 Isosorbide Dinitrate (Isordil) 20 mg TID PEG Last administered on 11/23/17 20: 49; Start 11/23/17 at 09:00 Lansoprazole (Prevacid) 30 mg BIDBFRMEAL FT Last administered on 11/23/17 08: 57; Start 11/23/17 at 07:30; Stop 11/23/17 at 11:13; Status DC Losartan Potassium (Cozaar) 100 mg DAILY PEG Last administered on 11/23/17 08: 57; Start 11/23/17 at 09:00 Acetaminophen (Tylenol) 650 mg PRN Q4HRS PRN PEG MILD PAIN / TEMP Last administered on 11/23/17 20:53; Start 11/22/17 at 23:45 Hydralazine HCl (Apresoline) 25 mg TID PEG Last administered on 11/23/17 20:49 ; Start 11/23/17 at 09:00 Potassium Chloride (KCl Oral Soln) 20 meq DAILY PEG Last administered on 08:56; Start 11/23/17 at 09:00 Aspirin (Children'S Aspirin) 81 mg DAILYWBKFT PEG ; Start 11/24/17 at 08:00 Lansoprazole (Prevacid) 30 mg DAILY FT ; Start 11/24/17 at 09:00 Acetaminophen (Tylenol) 650 mg PRN Q6HRS PRN PEG MILD PAIN / TEMP; Start at 11:15 Magnesium Hydroxide (Milk Of Magnesia) 2,400 mg PRN DAILY PRN PEG CONSTIPATION ; Start 11/23/17 at 11:15 Ceftriaxone Sodium 1 gm/ Dextrose 50 ml @ 100 mls/hr Q24H IV ; Start 11/23/17 at 23:15; Status UNV Ceftriaxone Sodium (Rocephin) 1 gm Q24H IVP Last administered on 11/23/17at 11: 34; Start 11/23/17 at 11:30 Amlodipine Besylate (Norvasc) 10 mg DAILY PO ; Start 11/23/17 at 18:00; Status Cancel Amlodipine Besylate (Norvasc) 10 mg DAILY PO ; Start 11/24/17 at 09:00 Active Scripts Active Prevacid (Lansoprazole) 30 Mg Tab.rap.dr 30 Mg FT BID Potassium Chloride Oral Liquid (Potassium Chloride) 20 Meq/15 Ml Liquid 20 Meq PEG DAILY Losartan Potassium 50 Mg Tablet 100 Mg PEG DAILY Isosorbide Dinitrate 10 Mg Tablet 20 Mg PEG TID Hydralazine Hcl 25 Mg Tablet 25 Mg PEG TID Furosemide 20 Mg Tablet 20 Mg PEG DAILY Atorvastatin Calcium 40 Mg Tablet 40 Mg PEG QHS Children's Aspirin (Aspirin) 81 Mg Tab.chew 81 Mg PO DAILYWBKFT Acetaminophen 650 Mg/20.3 Ml Solution 650 Mg PEG PRN Q4HRS PRN Reported Vitamin D3 (Cholecalciferol (Vitamin D3)) 1,000 Unit Tablet 1,000 Unit GT DAILY Vitals/I & O Vital Sign - Last 24 Hours 11/23/17 11/23/17 11/23/17 11/23/17 08:56 08:57 08:58 11:00 Temp 98.0 98.0 Pulse 66 66 66 50 Resp 24 B/P (MAP) 121/71 122/71 122/71 114/65 (81) Pulse Ox 98 O2 Delivery Nasal Cannula O2 Flow Rate 2.0 11/23/17 11/23/17 11/23/17 11/23/17 15:00 15:43 15:44 19:00 Temp 98.7 99.3 98.7 99.3 Pulse 70 70 70 69 Resp 20 18 B/P (MAP) 116/66 (83) 116/66 116/66 132/73 (92) Pulse Ox 97 99 O2 Delivery Nasal Cannula Room Air O2 Flow Rate 2.0 11/23/17 11/23/17 11/23/17 11/23/17 19:53 20:49 20:49 22:48 Temp 99.5 99.5 Pulse 69 69 83 Resp 20 B/P (MAP) 132/73 132/73 124/66 (85) Pulse Ox 93 O2 Delivery Nasal Cannula Room Air O2 Flow Rate 2.0 11/24/17 11/24/17 03:00 07:00 Temp 99.2 98.0 99.2 98.0 Pulse 78 75 Resp 21 18 B/P (MAP) 133/76 (95) 141/82 (101) Pulse Ox 95 96 O2 Delivery Nasal Cannula 2L O2 Flow Rate 2.0 Intake and Output 11/23/17 11/23/17 11/24/17 15:00 23:00 07:00 Intake Total 360 ml Output Total 600 ml 150 ml Balance -600 ml -150 ml 360 ml IRWIN BELLO MD Nov 24, 2017 08:55
[2017-11-24] MEDS: ASPIRIN CHEWABLE 81 MG TABLET. PEG SCH (10:32)
[2017-11-24] MEDS: ISOSORBIDE DINITRATE 10 MG TABLET. PEG SCH ×3 (10:32→21:00)
[2017-11-24] MEDS: amLODIPine BESYLATE 10 MG TABLET PO SCH (10:32)
[2017-11-24] MEDS: FUROSEMIDE 20 MG TABLET PEG SCH (10:33)
[2017-11-24] MEDS: hydrALAZINE 25 MG TABLET PEG SCH ×3 (10:33→21:00)
[2017-11-24] MEDS: CHOLECALCIFEROL (VITAMIN D3) 1,000 UNIT TABLET GT SCH (10:33)
[2017-11-24] MEDS: POTASSIUM CHLORIDE 20 MEQ/15 ML ORAL LIQUID. PEG SCH (10:34)
[2017-11-24] MEDS: LANSOPRAZOLE 30 MG TAB.RAP.DR FT SCH (10:34)
[2017-11-24] MEDS: LOSARTAN POTASSIUM 50 MG TABLET. PEG SCH (10:34)
[2017-11-24] MEDS: methylPREDNISolone SOD SUCC PF 40 MG/ML VIAL. IV SCH ×2 (10:38→21:00)
--- NOTE | 2017-11-24 10:39 | RAD ---
Portable chest, 11/24/2017: HISTORY: Upper airway wheezing and rhonchi Comparison is made to a study from 11/22/2017. There has been a previous median sternotomy. The heart is mildly enlarged. There is moderate calcific plaquing and tortuosity of the thoracic aorta. The pulmonary vascularity is normal. No pulmonary infiltrate is seen. There is no evidence of pleural fluid. IMPRESSION: 1. Cardiomegaly and aortic atherosclerosis. 2. No acute abnormality is detected. Electronically signed by: Mat Sweeney MD (11/24/2017 10:36 AM) [facility]
--- NOTE | 2017-11-24 10:46 | PDOC2 ---
CHRISTINEMAE FRANCO [employer]ayush [employer] 11/24/17 1046: CARDIAC CONSULT DATE OF CONSULT Date of Consult DATE: 11/24/17 TIME: 10:45 REASON FOR CONSULT Reason for Consult: CHF REFERRING PHYSICIAN Referring Physician: Leonard SOURCE Source: Chart review HISTORY OF PRESENT ILLNESS HISTORY OF PRESENT ILLNESS 72 year old female admitted through ER with reported change in breathing. Patient with aphasia and right hemiparesis. No family present. NT-proBNP of 1831. Reason for Visit: CHF PAST MEDICAL HISTORY Cardiovascular: CAD, CHF, HTN, Hyperlipidemia CENTRAL NERVOUS SYSTEM: CVA Heme/Onc: Anemia NOS Endocrine: Diabetes PAST SURGICAL HISTORY Past Surgical History: CABG, Other (right AKA; PEG) FAMILY HISTORY Family History: Family History Unknown SOCIAL HISTORY Social History UNKNOWN CURRENT MEDICATIONS CURRENT MEDICATIONS Current Medications Medications (Trade) Dose Ordered Sig/Courtney Route PRN Reason Start Time Stop Time Status Last Admin Dose Admin Atorvastatin Calcium (Lipitor) 40 mg QHS PEG 11/23/17 21:00 11/23/17 20:49 Aspirin (Children'S Aspirin) 81 mg DAILYWBKFT PEG 11/24/17 08:00 11/24/17 10:32 Lansoprazole (Prevacid) 30 mg DAILY FT 11/24/17 09:00 11/24/17 10:34 Ceftriaxone Sodium (Rocephin) 1 gm Q24H IVP 11/23/17 11:30 11/23/17 11:34 Amlodipine Besylate (Norvasc) 10 mg DAILY PO 11/24/17 09:00 11/24/17 10:32 Methylprednisolone Sodium Succinate (SOLU-Medrol 40MG VIAL) 40 mg Q12HR IV 11/24/17 09:00 11/24/17 10:38 ALLERGIES ALLERGIES: Coded Allergies: No Known Medication Allergies (Verified Allergy, Unknown, 07/25/17) ROS Review of System unobtainable due to aphasia PHYSICAL EXAM General: Cooperative HEENT: Atraumatic Lungs: Other (diminished in bases anteriorly; coarse in upper lobes) Heart: Normal S1, Normal S2 Abdomen: Soft Extremities: Other (bilateral boots) Neuro: Other (aphasia) MUSCULOSKELETAL: Osteoarthritic changes both hands VITALS VITALS Vital Signs Date Time Temp Pulse Resp B/P (MAP) Pulse Ox O2 Delivery O2 Flow Rate FiO2 11/24/17 10:34 75 141/82 11/24/17 07:00 98.0 18 96 2L 98.0 11/24/17 03:00 2.0 LABS Lab: Laboratory Tests Test 11/24/17 02:40 White Blood Count 6.3 x10^3/uL (4.0-11.0) Red Blood Count 3.27 x10^6/uL (3.50-5.40) Hemoglobin 10.3 g/dL (12.0-15.5) Hematocrit 29.8 % (36.0-47.0) Mean Corpuscular Volume 91 fL (79-100) Mean Corpuscular Hemoglobin 32 pg (25-35) Mean Corpuscular Hemoglobin Concent 35 g/dL (31-37) Red Cell Distribution Width 14.6 % (11.5-14.5) Platelet Count 190 x10^3/uL (140-400) Neutrophils (%) (Auto) 46 % (31-73) Lymphocytes (%) (Auto) 40 % (24-48) Monocytes (%) (Auto) 9 % (0-9) Eosinophils (%) (Auto) 5 % (0-3) Basophils (%) (Auto) 0 % (0-3) Neutrophils # (Auto) 2.9 x10^3uL (1.8-7.7) Lymphocytes # (Auto) 2.5 x10^3/uL (1.0-4.8) Monocytes # (Auto) 0.6 x10^3/uL (0.0-1.1) Eosinophils # (Auto) 0.3 x10^3/uL (0.0-0.7) Basophils # (Auto) 0.0 x10^3/uL (0.0-0.2) Sodium Level 136 mmol/L (136-145) Potassium Level 4.2 mmol/L (3.5-5.1) Chloride Level 104 mmol/L (98-107) Carbon Dioxide Level 27 mmol/L (21-32) Anion Gap 5 (6-14) Blood Urea Nitrogen 33 mg/dL (7-20) Creatinine 1.3 mg/dL (0.6-1.0) Estimated GFR (Cockcroft-Gault) 48.6 Glucose Level 101 mg/dL (70-99) Calcium Level 8.4 mg/dL (8.5-10.1) Triglycerides Level 46 mg/dL (0-150) Cholesterol Level 115 mg/dL (0-200) LDL Cholesterol, Calculated 59 mg/dL (0-100) VLDL Cholesterol, Calculated 9 mg/dL (0-40) Non-HDL Cholesterol Calculated 68 mg/dL (0-129) HDL Cholesterol 47 mg/dL (40-60) Cholesterol/HDL Ratio 2.4 IMAGES IMAGES Comparison is made to a study from 11/22/2017. There has been a previous median sternotomy. The heart is mildly enlarged. There is moderate calcific plaquing and tortuosity of the thoracic aorta. The pulmonary vascularity is normal. No pulmonary infiltrate is seen. There is no evidence of pleural fluid. IMPRESSION: 1. Cardiomegaly and aortic atherosclerosis. 2. No acute abnormality is detected. EKG EKG no acute changes ECHOCARDIOGRAM ECHOCARDIOGRAM pending HEART CATH HEART CATH 06/2013: Conclusion 1. Severe CAD s/p CABG with bypass graft findings described above 2. Successful PCI/stent to SVG to Diag and successful balloon PTCA to SVG to OM2 ASSESSMENT/PLAN ASSESSMENT/PLAN 1. acute/chronic systolic HF --LVEF 40-45% in 2015; repeat TTE pending --continue usual meds --compensated 2. CAD --cath in 2013 as noted --continue secondary prevention 3. HTN --control with meds 4. HLD --continue statin therapy 5. 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 DM, II --defer to primary service GT YATES MD 11/24/17 1657: CARDIAC CONSULT ASSESSMENT/PLAN ASSESSMENT/PLAN Patient seen and examined. Agree with WELL LOGGING CAPTAIN's assessment and plan. BNP level elevated but chest x-ray without any evidence of CHF 2-D echo showed LVEF 55% Continue diuretics orally CAD status clinically stable Continue treatment of aspiration pneumonia per pulmonary team Thank you for your consultation MAE DAVILA APRN Nov 24, 2017 10:46 GT YATES MD Nov 24, 2017 16:57
[2017-11-24 11:00] VITALS: BP 114/69
[2017-11-24] MEDS: IPRATRPIUM/ALBUTEROL 0.5/2.5MG 3 ML NEBU. NEB SCH ×4 (11:46→19:18)
[2017-11-24] MEDS: BUDESONIDE 0.5 MG/2 ML NEBU. NEB SCH ×2 (11:46→19:18)
[2017-11-24] MEDS: cefTRIAXone IV Push 1 GM VIAL. IVP SCH (12:13)
--- NOTE | 2017-11-24 13:12 | PDOC2 ---
Consult: CC: increased oropharyngeal secretions HPI: 72 year old female that was admitted on 11-22-17 with increased shortness of breath secondary to CHF exacerbation. Patient is aphasic and suffers from right hemiparesis since CVA in 2013. She lives with daughter who is primary care transport nurse. Daughter is at bedside and reports noticing difficulty with handling secretions last week. She felt was likely due to respiratory infection. No improvement and worsening breathing issues which prompter her to bring patient to ER. Patient has been PEG/tube dependent since 2013. No vomiting noted after feedings. Patient shakes head no when asked about pain. PAST MEDICAL HISTORY: Significant for cerebrovascular accident late effects with oropharyngeal dysphagia, expressive aphasia, right-sided hemiparesis, maintaining gastrostomy tube feeding boluses with a history of an upper gastrointestinal bleed secondary to a duodenal ulcer in 2013. She has paroxysmal atrial fibrillation, not a candidate for Coumadin as she has had recurrent gross hematuria in the past when she was given Coumadin on several occasions. She has diabetes mellitus type 2, treated with diet; hypertension, hyperlipidemia, coronary artery disease, cardiomyopathy with left ventricular ejection fraction of 40-45% in the past and a history of coronary angioplasty for a circumflex coronary artery in 2013. She has had coronary bypass graft surgery in 1995. She does have coronary artery disease and peripheral arterial disease with a right below-knee amputation. She has a neurogenic bladder, treated with a chronic Saab catheter. She has chronic systolic congestive heart failure. She had Proteus sepsis in 10/2016, had a cholecystectomy in the past. She has a gastrostomy tube. SOCIAL HISTORY: She is cared for by her daughter at home. Does not drink alcohol nor does she smoke cigarettes. FAMILY HISTORY: Noncontributory. Meds: Reviewed Exam: Vitals: reviewed General: patient sitting in bed and comfortable, audible rattling heard with inspiration and expiration Ears: normal tympanic membranes bilaterally Eyes: EOMI, normal conjunctiva Nose: Septum deviated to right. Noted inflammation/swelling of right > left inferior turbinates, clear nasal discharge OC/OP: poor dentition, no oral lesions, exam difficult due to patient not helping Neck: soft, non-tender, non-distended, trachea midline, no lymphadenopathy PROCEDURE: Flexible Fiberoptic Nasopharyngolaryngoscopy DESCRIPTION: Topical anesthesia obtained with topical 4% lidocaine and Afrin solution intranasally. Exam carried out with a flexible nasopharyngolaryngoscope. Scope passed into bilateral nasal cavity to visualize nasal cavity structures including septum, middle meatus, middle and inferior turbinates. The nasopharynx was visualized including any residual adenoid tissue, torus tubaris and eustachian tube orifice. Scope was further advanced to visualize oropharyngeal, hypopharyngeal, laryngeal structures. The following structures were visualized posterior and lateral pharyngeal boo, base of tongue, vallecula, epiglottis, arytenoids, aryepiglottic folds, false and true vocal folds, subglottis, posterior cricoid region and pyriform sinuses. All examined structures were normal except as noted below. The scope was subsequently removed. The patient tolerated procedure well. Findings: Inflammation noted in right nasal cavity; Normal vocal cord mobility. No significant secretions surrounding larynx. Breathing sounds still audible during procedure which likely reflects tracheal/bronchial secretions Assessment: 72 year old female with worsening shortness of breath over past several days. Difficulty tolerating secretions. On examination, noted inflammation of right nasal cavity likely due to acute viral/bacterial sinusitis. Patient also has increased sturgor during breathing-- no secretions seen on larynx-- likely bronchial. Plan: - Recommend trial use of fluticasone nasal spray to help with nasal inflammation - Also recommend continuing IV steroids for next several days to help with inflammation - Continue oral care as much as tolerated. I agree with plan to treat with nebulizer treatments for increased secretions. - Patient currently on IV antibiotics. Consider transitioning to 10 day course of amoxicillin or bactrim to treat sinusitis as patient improves. - No therapy would provide much relief of dysphagia. We could consider tracheostomy of continues to be unable to protect airway. However, I am not sure if this is something that family would feel comfortable providing. Hopefully, will not be needed at this time. EKATERINA URIBE MD Nov 24, 2017 13:12
--- NOTE | 2017-11-24 14:44 | PDOC ---
PULMONARY PROGRESS NOTES Vitals Vital Signs Date Time Temp Pulse Resp B/P (MAP) Pulse Ox O2 Delivery O2 Flow Rate FiO2 11/24/17 11:49 97 Nasal Cannula 2.0 11/24/17 11:00 98.1 85 18 114/69 (84) 98.1 General: Alert Lungs: Other Cardiovascular: S1, S2 Abdomen: Soft Extremities: Other Labs Laboratory Tests Test 11/22/17 21:05 11/22/17 21:45 11/23/17 07:25 11/24/17 02:40 White Blood Count 6.2 x10^3/uL (4.0-11.0) 6.2 x10^3/uL (4.0-11.0) 6.3 x10^3/uL (4.0-11.0) Red Blood Count 4.37 x10^6/uL (3.50-5.40) 3.48 x10^6/uL (3.50-5.40) 3.27 x10^6/uL (3.50-5.40) Hemoglobin 13.5 g/dL (12.0-15.5) 10.9 g/dL (12.0-15.5) 10.3 g/dL (12.0-15.5) Hematocrit 39.7 % (36.0-47.0) 31.5 % (36.0-47.0) 29.8 % (36.0-47.0) Mean Corpuscular Volume 91 fL (79-100) 91 fL (79-100) 91 fL (79-100) Mean Corpuscular Hemoglobin 31 pg (25-35) 31 pg (25-35) 32 pg (25-35) Mean Corpuscular Hemoglobin Concent 34 g/dL (31-37) 35 g/dL (31-37) 35 g/dL (31-37) Red Cell Distribution Width 14.5 % (11.5-14.5) 14.6 % (11.5-14.5) 14.6 % (11.5-14.5) Platelet Count 178 x10^3/uL (140-400) 181 x10^3/uL (140-400) 190 x10^3/uL (140-400) Neutrophils (%) (Auto) 67 % (31-73) 51 % (31-73) 46 % (31-73) Lymphocytes (%) (Auto) 22 % (24-48) 33 % (24-48) 40 % (24-48) Monocytes (%) (Auto) 8 % (0-9) 12 % (0-9) 9 % (0-9) Eosinophils (%) (Auto) 2 % (0-3) 3 % (0-3) 5 % (0-3) Basophils (%) (Auto) 1 % (0-3) 1 % (0-3) 0 % (0-3) Neutrophils # (Auto) 4.1 x10^3uL (1.8-7.7) 3.2 x10^3uL (1.8-7.7) 2.9 x10^3uL (1.8-7.7) Lymphocytes # (Auto) 1.4 x10^3/uL (1.0-4.8) 2.1 x10^3/uL (1.0-4.8) 2.5 x10^3/uL (1.0-4.8) Monocytes # (Auto) 0.5 x10^3/uL (0.0-1.1) 0.7 x10^3/uL (0.0-1.1) 0.6 x10^3/uL (0.0-1.1) Eosinophils # (Auto) 0.1 x10^3/uL (0.0-0.7) 0.2 x10^3/uL (0.0-0.7) 0.3 x10^3/uL (0.0-0.7) Basophils # (Auto) 0.0 x10^3/uL (0.0-0.2) 0.0 x10^3/uL (0.0-0.2) 0.0 x10^3/uL (0.0-0.2) Sodium Level 133 mmol/L (136-145) 137 mmol/L (136-145) 136 mmol/L (136-145) Potassium Level 4.3 mmol/L (3.5-5.1) 3.8 mmol/L (3.5-5.1) 4.2 mmol/L (3.5-5.1) Chloride Level 101 mmol/L (98-107) 104 mmol/L (98-107) 104 mmol/L (98-107) Carbon Dioxide Level 27 mmol/L (21-32) 29 mmol/L (21-32) 27 mmol/L (21-32) Anion Gap 5 (6-14) 4 (6-14) 5 (6-14) Blood Urea Nitrogen 25 mg/dL (7-20) 25 mg/dL (7-20) 33 mg/dL (7-20) Creatinine 1.2 mg/dL (0.6-1.0) 1.4 mg/dL (0.6-1.0) 1.3 mg/dL (0.6-1.0) Estimated GFR (Cockcroft-Gault) 53.3 44.6 48.6 BUN/Creatinine Ratio 21 (6-20) Glucose Level 114 mg/dL (70-99) 101 mg/dL (70-99) 101 mg/dL (70-99) Calcium Level 9.3 mg/dL (8.5-10.1) 8.4 mg/dL (8.5-10.1) 8.4 mg/dL (8.5-10.1) Total Bilirubin 0.4 mg/dL (0.2-1.0) Aspartate Amino Transf (AST/SGOT) 32 U/L (15-37) Alanine Aminotransferase (ALT/SGPT) 29 U/L (14-59) Alkaline Phosphatase 163 U/L (46-116) Creatine Kinase 67 U/L (26-192) Creatine Kinase MB (Mass) 0.6 ng/mL (0.0-3.6) Creatine Kinase MB Relative Index % (0-4) Troponin I Quantitative 0.051 ng/mL (0.000-0.055) NA-Suu-C-Type Natriuretic Peptide 1831 pg/mL (0-124) Total Protein 7.6 g/dL (6.4-8.2) Albumin 2.7 g/dL (3.4-5.0) Albumin/Globulin Ratio 0.6 (1.0-1.7) Urine Collection Type U cath Urine Color Yellow Urine Clarity Clear Urine pH 6.0 Urine Specific [place] 1.020 Urine Protein 30 mg/dL (NEG-TRACE) Urine Glucose (UA) Negative mg/dL (NEG) Urine Ketones (Stick) Negative mg/dL (NEG) Urine Blood Negative (NEG) Urine Nitrite Positive (NEG) Urine Bilirubin Negative (NEG) Urine Urobilinogen Dipstick 1.0 mg/dL (0.2 mg/dL) Urine Leukocyte Esterase Large (NEG) Urine RBC 1-2 /HPF (0-2) Urine WBC 11-20 /HPF (0-4) Urine Squamous Epithelial Cells Few /LPF Urine Bacteria Moderate /HPF (0-FEW) Urine Mucus Slight /LPF Triglycerides Level 46 mg/dL (0-150) Cholesterol Level 115 mg/dL (0-200) LDL Cholesterol, Calculated 59 mg/dL (0-100) VLDL Cholesterol, Calculated 9 mg/dL (0-40) Non-HDL Cholesterol Calculated 68 mg/dL (0-129) HDL Cholesterol 47 mg/dL (40-60) Cholesterol/HDL Ratio 2.4 Laboratory Tests Test 11/24/17 02:40 White Blood Count 6.3 x10^3/uL (4.0-11.0) Red Blood Count 3.27 x10^6/uL (3.50-5.40) Hemoglobin 10.3 g/dL (12.0-15.5) Hematocrit 29.8 % (36.0-47.0) Mean Corpuscular Volume 91 fL (79-100) Mean Corpuscular Hemoglobin 32 pg (25-35) Mean Corpuscular Hemoglobin Concent 35 g/dL (31-37) Red Cell Distribution Width 14.6 % (11.5-14.5) Platelet Count 190 x10^3/uL (140-400) Neutrophils (%) (Auto) 46 % (31-73) Lymphocytes (%) (Auto) 40 % (24-48) Monocytes (%) (Auto) 9 % (0-9) Eosinophils (%) (Auto) 5 % (0-3) Basophils (%) (Auto) 0 % (0-3) Neutrophils # (Auto) 2.9 x10^3uL (1.8-7.7) Lymphocytes # (Auto) 2.5 x10^3/uL (1.0-4.8) Monocytes # (Auto) 0.6 x10^3/uL (0.0-1.1) Eosinophils # (Auto) 0.3 x10^3/uL (0.0-0.7) Basophils # (Auto) 0.0 x10^3/uL (0.0-0.2) Sodium Level 136 mmol/L (136-145) Potassium Level 4.2 mmol/L (3.5-5.1) Chloride Level 104 mmol/L (98-107) Carbon Dioxide Level 27 mmol/L (21-32) Anion Gap 5 (6-14) Blood Urea Nitrogen 33 mg/dL (7-20) Creatinine 1.3 mg/dL (0.6-1.0) Estimated GFR (Cockcroft-Gault) 48.6 Glucose Level 101 mg/dL (70-99) Calcium Level 8.4 mg/dL (8.5-10.1) Triglycerides Level 46 mg/dL (0-150) Cholesterol Level 115 mg/dL (0-200) LDL Cholesterol, Calculated 59 mg/dL (0-100) VLDL Cholesterol, Calculated 9 mg/dL (0-40) Non-HDL Cholesterol Calculated 68 mg/dL (0-129) HDL Cholesterol 47 mg/dL (40-60) Cholesterol/HDL Ratio 2.4 Medications Active Scripts Medications Dose Route/Sig Max Daily Dose Days Date Category Prevacid (Lansoprazole) 30 Mg Tab.rap.dr 30 Mg FT BID 07/16/16 Rx Potassium Chloride Oral Liquid (Potassium Chloride) 20 Meq/15 Ml Liquid 20 Meq PEG DAILY 07/16/16 Rx Losartan Potassium 50 Mg Tablet 100 Mg PEG DAILY 07/16/16 Rx Isosorbide Dinitrate 10 Mg Tablet 20 Mg PEG TID 07/16/16 Rx Hydralazine Hcl 25 Mg Tablet 25 Mg PEG TID 07/16/16 Rx Furosemide 20 Mg Tablet 20 Mg PEG DAILY 07/16/16 Rx Atorvastatin Calcium 40 Mg Tablet 40 Mg PEG QHS 07/16/16 Rx Vitamin D3 (Cholecalciferol (Vitamin D3)) 1,000 Unit Tablet 1,000 Unit GT DAILY 11/23/14 Reported Children's Aspirin (Aspirin) 81 Mg Tab.chew 81 Mg PO DAILYWBKFT 05/01/14 Rx Acetaminophen 650 Mg/20.3 Ml Solution 650 Mg PEG PRN Q4HRS PRN 05/01/14 Rx Impression . ACUTE/CHRONIC ASPIRATION PNEUMONIA DYSPHAGIA S/P PEG MULTIPLE OTHER COMORBIDITIES CONTINUE AGGRESSIVE PULMONARY HYGIENE CHANGE ANTIBX TO ZOSYN THANKS BONNIE IBARRA MD Nov 24, 2017 14:44
[2017-11-24] MEDS ORDERED: PIP/TAZO PER PHARMACY MC PRN (14:45)
[2017-11-24 15:00] VITALS: BP 112/66
[2017-11-24] MEDS ORDERED: ALBUTEROL SULFATE 2.5 MG/3 ML NEBU. NEB PRN (15:00)
[2017-11-24] MEDS: PIPERACILLIN/TAZOBACTAM 3.375 GM in IV NORMAL SALINE 50ML 50 ML IV SCH (15:58)
--- NOTE | 2017-11-24 16:53 | CARD ---
MR#: [id number] Date of Study: 11/24/2017 Ordering Physician: IRWIN BELLO, Referring Physician: IRWIN BELLO, Tech: CRISTIAN Kramer APPROVED REPORT EXAM: Two-dimensional and M-mode echocardiogram with Doppler and color Doppler. Other Information Quality : AverageHR: 08bpm Technically limited study due to body habitus and body position. INDICATION Cardiomyopathy Congestive Heart Failure RISK FACTORS Hypertension Diabetes 2D DIMENSIONS RVDd3.1 (2.9-3.5cm)Left Atrium(2D)3.3 (1.6-4.0cm) IVSd2.0 (0.7-1.1cm)Aortic Root(2D)2.9 (2.0-3.7cm) LVDd3.6 (3.9-5.9cm)LVOT Diameter2.2 (1.8-2.4cm) PWd1.6 (0.7-1.1cm)LVDs2.5 (2.5-4.0cm) FS (%) 30.8 %SV33.2 ml LVEF(%)59.3 (>50%) Aortic Valve AoV Peak Blair.188.7cm/sAoV VTI38.5cm AO Peak GR.14.2mmHgLVOT Peak Blair.141.8cm/s LVOT VTI 28.00cmAO Mean GR.9mmHg CLARISSA (VMAX)2.35vw8BLX (VTI)2.72cm2 Mitral Valve MV E Odccmtfd65.7cm/sMV E Peak Gr.51mmHg MV DECEL [id number] A Rzgaljsi885.7cm/s MV YEG40wjE/A Ratio0.7 MVA (PHT)3.63cm2 TDI E/Lateral E'12.1E/Medial E'14.6 Pulmonary Valve PV Peak Iebxizwb906.0cm/sPV Peak Grad.14mmHg Tricuspid Valve TR P. Ohqcngum999ka/sTR Peak Gr.12mmHg LEFT VENTRICLE The left ventricle is normal size. There is moderate to severe concentric left ventricular hypertroph y. The left ventricular systolic function is normal and the ejection fraction is within normal range. EF 55% There is normal LV segmental wall motion. Transmitral Doppler flow pattern is Grade I-abnorma l relaxation pattern. RIGHT VENTRICLE The right ventricle is mildly dilated. The right ventricular systolic function is normal. ATRIA The left atrium is mildly dilated. The right atrium size is normal. The interatrial septum is intact with no evidence for an atrial septal defect or patent foramen ovale as noted on 2-D or Doppler imagi ng. AORTIC VALVE The aortic valve is not well visualized. Doppler and Color Flow revealed no significant aortic regurg itation. There is no significant aortic valvular stenosis. There is no aortic valvular vegetation. MITRAL VALVE The mitral valve is thickened but opens well. There is no evidence of mitral valve prolapse. There is no mitral valve stenosis. Doppler and Color-flow revealed trace mitral regurgitation. TRICUSPID VALVE The tricuspid valve is not well visualized. Doppler and Color Flow revealed trace tricuspid regurgita tion. The pulmonary artery systolic pressure is estimated at less than 30 mmHg. There is no tricuspid valve stenosis. PULMONIC VALVE The pulmonic valve is not well visualized. Doppler and Color Flow revealed no pulmonic valvular regur gitation. GREAT VESSELS The aortic root is normal in size. The IVC was not visualized. PERICARDIAL EFFUSION There is no pleural effusion. There is no evidence of significant pericardial effusion. Critical Notification Critical Value: No <Conclusion> There is moderate to severe concentric left ventricular hypertrophy. The left ventricular systolic function is normal and the ejection fraction is within normal range. EF 55% There is normal LV segmental wall motion. Signed by : Gareth Kendrick, Electronically Approved : 11/24/2017 16:52:20
[2017-11-24] MEDS ORDERED: ALBUTEROL SULFATE 2.5 MG/3 ML NEBU. NEB SCH (17:00)
[2017-11-24 19:00] VITALS: BP 98/50
--- NOTE | 2017-11-24 20:36 | CONS ---
DATE OF CONSULTATION: 11/24/2017 ATTENDING PHYSICIAN: Dr. Clovis Valle. REASON FOR CONSULTATION: The patient seen in pulmonary consultation at the request of Dr. Valle for the patient with increasing work of breathing. HISTORY OF PRESENT ILLNESS: The patient is a 72-year-old female with a prior history of CVA. She has expressive aphasia. According to the family, she was having increasing difficulty with shortness of air. She has had some labored breathing. She was brought to the Emergency Department. Chest x-ray was obtained. I did not appreciate an infiltrate. The patient during my evaluation definitely has some increasing respiratory distress and upper airway noise with coarse breath sounds. She also had a cough, sounded very wet with retention of secretions in the back of her pharynx. No family members are present at the bedside. At the moment, the history is obtained by reviewing the current documentation and history and physical. PAST MEDICAL HISTORY: 1. CVA with late effects of right-sided hemiparesis. 2. Oropharynx: Dysphagia, expressive aphasia, status post gastrostomy tube. 3. Diabetes. 4. Hypertension. 5. Hyperlipidemia. 6. Coronary artery disease with previous ejection fraction of 40-45%. 7. Peripheral vascular disease, status post right below-knee amputation. 8. Paroxysmal atrial fibrillation. PAST SURGICAL HISTORY: As above. In addition, she had coronary artery bypass graft in 1995, status post right below knee amputation. She is status post chronic Saab catheter placement for neurogenic bladder, status post cholecystectomy and gastrostomy tube. SOCIAL HISTORY: She is currently at home, cared by her daughter. No history of alcoholism or tobacco use. FAMILY HISTORY: Noncontributory. REVIEW OF SYSTEMS: Unobtainable secondary to the patient's condition. ALLERGIES: No known drug allergies. CURRENT MEDICATIONS: List was reviewed. PHYSICAL EXAMINATION: VITAL SIGNS: Stable. O2 saturation was greater than 92%, currently on 2 liters, elevated respiratory rate. HEENT: Eyes, the sclerae were nonicteric. NECK: Jugular venous distention was not elevated. No lymphadenopathy. CHEST: Full expansion. LUNGS: Upper airway noise with scattered coarse breath sounds and expiratory wheeze. CARDIOVASCULAR: Regular rate and rhythm with S1, S2, no S3. ABDOMEN: Soft, nontender, nondistended. EXTREMITIES: No clubbing or cyanosis, some edema on the left, status post right below-knee amputation. NEUROLOGIC: The patient was awake, but did not follow commands. She had right-sided hemiparesis from previous CVA. LABORATORY DATA: Labs were reviewed. White count was normal. Hemoglobin and hematocrit were noted. Electrolytes were noted. BUN was elevated. Creatinine was elevated. Chest x-ray was reviewed. IMPRESSION: 1. Chronic aspiration. 2. Dysphagia secondary to previous cerebrovascular accident. 3. Status post gastrostomy tube. 4. Previous CVA with right-sided hemiparesis. 5. Expressive aphasia. 6. Raeia-gt-kcmpjgw heart failure. 7. Coronary artery disease, status post coronary artery bypass grafting. 8. Peripheral vascular disease, status post right below-knee amputation. 9. Status post PEG J-tube placement. 10. Paroxysmal atrial fibrillation. 11. Type 2 diabetes. PLAN: 1. Recommend to continue current IV antibiotics. 2. Aggressive pulmonary hygiene. 3. Nebulized treatments. 4. Maintain head of bed at 30 degrees. 5. Maintain oropharynx clear of any secretions or frequent suctioning. Unfortunately, not much else to offer, the patient's underlying CVA with neurological deficit has resulted in all of the above. I do appreciate the privilege in sharing in this patient's care. BONNIE IBARRA MD DR: PARAS/herb JOB#: [id number] / [id number]
[2017-11-24] MEDS: ATORVASTATIN CALCIUM 40 MG TABLET. PEG SCH (21:00)
[2017-11-24] MEDS: LACTOBACILLUS RHAMNOSUS GG 1 CAPSULE. PO SCH (21:00)
[2017-11-24 23:00] VITALS: BP 102/60
[2017-11-25 02:16] LABS: HEMOGLOBIN A1C 5.7 % (4.8-5.6)
[2017-11-25 03:00] VITALS: BP 126/69
[2017-11-25] MEDS: PIPERACILLIN/TAZOBACTAM 3.375 GM in IV NORMAL SALINE 50ML 50 ML IV SCH ×5 (05:00→17:50)
[2017-11-25 07:00] VITALS: BP 133/75
[2017-11-25] MEDS: IPRATRPIUM/ALBUTEROL 0.5/2.5MG 3 ML NEBU. NEB SCH ×4 (07:05→19:16)
[2017-11-25] MEDS: BUDESONIDE 0.5 MG/2 ML NEBU. NEB SCH ×2 (07:05→19:16)
[2017-11-25 07:45] LABS: CALCIUM 9.1 mg/dL (8.5-10.1); CREATININE 1.3 mg/dL (0.6-1.0); GFR 48.6; POTASSIUM 4.3 mmol/L (3.5-5.1)
[2017-11-25] MEDS: LOSARTAN POTASSIUM 50 MG TABLET. PEG SCH (08:12)
[2017-11-25] MEDS: ASPIRIN CHEWABLE 81 MG TABLET. PEG SCH (08:14)
[2017-11-25] MEDS: hydrALAZINE 25 MG TABLET PEG SCH ×3 (08:14→20:46)
[2017-11-25] MEDS: LACTOBACILLUS RHAMNOSUS GG 1 CAPSULE. PO SCH (08:14)
[2017-11-25] MEDS: methylPREDNISolone SOD SUCC PF 40 MG/ML VIAL. IV SCH ×2 (08:15→20:46)
[2017-11-25] MEDS: CHOLECALCIFEROL (VITAMIN D3) 1,000 UNIT TABLET GT SCH (08:15)
[2017-11-25] MEDS: ACETAMINOPHEN 650 MG/20.3 ML SOLUTION. PEG PRN (08:15)
[2017-11-25] MEDS: POTASSIUM CHLORIDE 20 MEQ/15 ML ORAL LIQUID. PEG SCH (08:16)
[2017-11-25] MEDS: FUROSEMIDE 20 MG TABLET PEG SCH (08:16)
[2017-11-25] MEDS: LANSOPRAZOLE 30 MG TAB.RAP.DR FT SCH (08:16)
[2017-11-25] MEDS: amLODIPine BESYLATE 10 MG TABLET PO SCH (08:17)
[2017-11-25] MEDS: ISOSORBIDE DINITRATE 10 MG TABLET. PEG SCH ×3 (08:32→20:46)
--- NOTE | 2017-11-25 09:01 | PDOC ---
PROGRESS NOTES Subjective Subjective alert . wheezes earlier but no wheezes after nebulizer rx. alert. lab reviewed. nasopharyngeal scope report reviewed. urine culture growing strep. cxr without lung infiltrate. afebrile. Objective Objective Vital Signs Date Time Temp Pulse Resp B/P (MAP) Pulse Ox O2 Delivery O2 Flow Rate FiO2 11/25/17 08:32 68 133/75 11/25/17 07:08 96 Nasal Cannula 1.0 11/25/17 07:00 97.6 20 97.6 Intake and Output 11/25/17 07:00 Intake Total 445 ml Output Total 650 ml Balance -205 ml IV Total 50 ml Tube Feeding 360 ml Blood Product IV Normal Saline Flush 35 ml Output Urine Total 650 ml Physical Exam Abdomen: Soft, Other (peg) Heart: Regular rate, Normal S1, Normal S2 Extremities: No edema, Other (right AKA) General: Alert HEENT: Atraumatic Lungs: Other (clear anteriorly) Neuro: Other (aphasic and and right sided hemiparesis) Psych/Mental Status: Mood NL Skin: No rashes Assessment Assessment Problems. Acute on chronic systolic congestive heart failure, which is compensated 2. Cardiomyopathy resolved. LVEF 55% 3. Coronary artery disease with previous coronary artery bypass graft surgery and a coronary angioplasty to circumflex coronary artery in the past. 4. Peripheral arterial disease. 5. 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 6. PEG tube feedings. 7. History of right above-knee amputation. 8. Paroxysmal atrial fibrillation, but not a Coumadin candidate. 9. Diabetes mellitus type 2, treated with diet. 10. Hypertension. 11. Hyperlipidemia. 12. Severe protein calorie malnutrition. 13. Chronic kidney disease stage 3. 14. strep uti upper airway rhonchi /wheezes due to bronchial and tracheal secretions improving possible aspiration . cxr without lung infiltrate Medical Problems: (1) CHF exacerbation Status: Acute (2) UTI (urinary tract infection) Status: Acute Plan Plan of Care continue iv zosyn continue iv solumedrol continue nebulizer rx lab tomorrow await urine culture results Comment Review of Relevant I have reviewed the following items sarah (where applicable) has been applied. Labs Laboratory Tests Test 11/24/17 02:40 11/25/17 05:46 White Blood Count 6.3 x10^3/uL (4.0-11.0) Red Blood Count 3.27 x10^6/uL (3.50-5.40) Hemoglobin 10.3 g/dL (12.0-15.5) Hematocrit 29.8 % (36.0-47.0) Mean Corpuscular Volume 91 fL (79-100) Mean Corpuscular Hemoglobin 32 pg (25-35) Mean Corpuscular Hemoglobin Concent 35 g/dL (31-37) Red Cell Distribution Width 14.6 % (11.5-14.5) Platelet Count 190 x10^3/uL (140-400) Neutrophils (%) (Auto) 46 % (31-73) Lymphocytes (%) (Auto) 40 % (24-48) Monocytes (%) (Auto) 9 % (0-9) Eosinophils (%) (Auto) 5 % (0-3) Basophils (%) (Auto) 0 % (0-3) Neutrophils # (Auto) 2.9 x10^3uL (1.8-7.7) Lymphocytes # (Auto) 2.5 x10^3/uL (1.0-4.8) Monocytes # (Auto) 0.6 x10^3/uL (0.0-1.1) Eosinophils # (Auto) 0.3 x10^3/uL (0.0-0.7) Basophils # (Auto) 0.0 x10^3/uL (0.0-0.2) Sodium Level 136 mmol/L (136-145) 137 mmol/L (136-145) Potassium Level 4.2 mmol/L (3.5-5.1) 4.3 mmol/L (3.5-5.1) Chloride Level 104 mmol/L (98-107) 105 mmol/L (98-107) Carbon Dioxide Level 27 mmol/L (21-32) 27 mmol/L (21-32) Anion Gap 5 (6-14) 5 (6-14) Blood Urea Nitrogen 33 mg/dL (7-20) 34 mg/dL (7-20) Creatinine 1.3 mg/dL (0.6-1.0) 1.3 mg/dL (0.6-1.0) Estimated GFR (Cockcroft-Gault) 48.6 48.6 Glucose Level 101 mg/dL (70-99) 167 mg/dL (70-99) Hemoglobin A1c 5.7 % (4.8-5.6) Calcium Level 8.4 mg/dL (8.5-10.1) 9.1 mg/dL (8.5-10.1) Triglycerides Level 46 mg/dL (0-150) Cholesterol Level 115 mg/dL (0-200) LDL Cholesterol, Calculated 59 mg/dL (0-100) VLDL Cholesterol, Calculated 9 mg/dL (0-40) Non-HDL Cholesterol Calculated 68 mg/dL (0-129) HDL Cholesterol 47 mg/dL (40-60) Cholesterol/HDL Ratio 2.4 Laboratory Tests Test 11/25/17 05:46 Sodium Level 137 mmol/L (136-145) Potassium Level 4.3 mmol/L (3.5-5.1) Chloride Level 105 mmol/L (98-107) Carbon Dioxide Level 27 mmol/L (21-32) Anion Gap 5 (6-14) Blood Urea Nitrogen 34 mg/dL (7-20) Creatinine 1.3 mg/dL (0.6-1.0) Estimated GFR (Cockcroft-Gault) 48.6 Glucose Level 167 mg/dL (70-99) Calcium Level 9.1 mg/dL (8.5-10.1) Microbiology 11/22/17 Urine Culture - Preliminary, Resulted 11/22/17 Urine Culture Result 1 (KIRSTY) - Preliminary, Resulted Medications Current Medications Furosemide (Lasix) 40 mg 1X ONCE PO ; Start 11/22/17 at 20:30; Stop 11/22/17 at 20:31; Status DC Furosemide (Lasix) 40 mg 1X ONCE IVP Last administered on 11/22/17at 21:35; Start 11/22/17 at 21:30; Stop 11/22/17 at 21:31; Status DC Fentanyl Citrate (Fentanyl 2ml Vial) 50 mcg PRN Q2HR PRN IV PAIN; Start at 22:30; Stop 11/23/17 at 22:29; Status DC Ceftriaxone Sodium 50 ml @ 100 mls/hr 1X ONCE IV Last administered on at 00:10; Start 11/22/17 at 23:15; Stop 11/22/17 at 23:44; Status DC Acetaminophen (Tylenol) 650 mg PRN Q6HRS PRN PEG MILD PAIN / TEMP; Start at 23:15; Stop 11/22/17 at 23:46; Status DC Aspirin (Children'S Aspirin) 81 mg DAILYWBKFT PO Last administered on 08:57; Start 11/23/17 at 08:00; Stop 11/23/17 at 11:13; Status DC Atorvastatin Calcium (Lipitor) 40 mg QHS PEG Last administered on 11/23/17 20: 49; Start 11/23/17 at 21:00 Vitamin D (Vitamin D3) 1,000 unit DAILY GT Last administered on 11/25/17 08:15 ; Start 11/23/17 at 09:00 Furosemide (Lasix) 20 mg DAILY PEG Last administered on 11/25/17 08:16; Start 11/23/17 at 09:00 Isosorbide Dinitrate (Isordil) 20 mg TID PEG Last administered on 11/25/17 08: 32; Start 11/23/17 at 09:00 Lansoprazole (Prevacid) 30 mg BIDBFRMEAL FT Last administered on 11/23/17 08: 57; Start 11/23/17 at 07:30; Stop 11/23/17 at 11:13; Status DC Losartan Potassium (Cozaar) 100 mg DAILY PEG Last administered on 11/25/17 08: 12; Start 11/23/17 at 09:00 Acetaminophen (Tylenol) 650 mg PRN Q4HRS PRN PEG MILD PAIN / TEMP Last administered on 11/23/17 20:53; Start 11/22/17 at 23:45; Stop 11/24/17 at 13:55 ; Status DC Hydralazine HCl (Apresoline) 25 mg TID PEG Last administered on 11/25/17 08:14 ; Start 11/23/17 at 09:00 Potassium Chloride (KCl Oral Soln) 20 meq DAILY PEG Last administered on 08:16; Start 11/23/17 at 09:00 Aspirin (Children'S Aspirin) 81 mg DAILYWBKFT PEG Last administered on 08:14; Start 11/24/17 at 08:00 Lansoprazole (Prevacid) 30 mg DAILY FT Last administered on 11/25/17 08:16; Start 11/24/17 at 09:00 Acetaminophen (Tylenol) 650 mg PRN Q6HRS PRN PEG MILD PAIN / TEMP Last administered on 11/25/17at 08:15; Start 11/23/17 at 11:15 Magnesium Hydroxide (Milk Of Magnesia) 2,400 mg PRN DAILY PRN PEG CONSTIPATION ; Start 11/23/17 at 11:15 Ceftriaxone Sodium 1 gm/ Dextrose 50 ml @ 100 mls/hr Q24H IV ; Start 11/23/17 at 23:15; Status UNV Ceftriaxone Sodium (Rocephin) 1 gm Q24H IVP Last administered on 11/24/17at 12: 13; Start 11/23/17 at 11:30; Stop 11/24/17 at 14:46; Status DC Amlodipine Besylate (Norvasc) 10 mg DAILY PO ; Start 11/23/17 at 18:00; Status Cancel Amlodipine Besylate (Norvasc) 10 mg DAILY PO Last administered on 11/25/17at 08: 17; Start 11/24/17 at 09:00 Albuterol/ Ipratropium (Duoneb) 3 ml RTQID NEB Last administered on 11/25/17at 07:05; Start 11/24/17 at 09:00 Budesonide (Pulmicort) 0.5 mg RTBID NEB Last administered on 11/25/17at 07:05; Start 11/24/17 at 09:00 Methylprednisolone Sodium Succinate (SOLU-Medrol 40MG VIAL) 40 mg Q12HR IV Last administered on 11/25/17at 08:15; Start 11/24/17 at 09:00 Lactobacillus Rhamnosus (Culturelle) 1 cap BID PO Last administered on at 08:14; Start 11/24/17 at 21:00; Stop 11/25/17 at 08:23; Status DC Piperacillin Sod/ Tazobactam Sod (Zosyn Per Pharmacy) 1 each PRN DAILY PRN MC SEE COMMENTS; Start 11/24/17 at 14:45 Albuterol Sulfate (Ventolin Neb Soln) 2.5 mg QID NEB ; Start 11/24/17 at 17:00; Status UNV Albuterol Sulfate (Ventolin Neb Soln) 2.5 mg PRN Q2HR PRN NEB DYSPNEA; Start at 15:00 Piperacillin Sod/ Tazobactam Sod 3.375 gm/Sodium Chloride 50 ml @ 100 mls/hr Q6HRS IV Last administered on 11/25/17at 05:00; Start 11/24/17 at 16:00 Active Scripts Active Prevacid (Lansoprazole) 30 Mg Tab.rap.dr 30 Mg FT BID Potassium Chloride Oral Liquid (Potassium Chloride) 20 Meq/15 Ml Liquid 20 Meq PEG DAILY Losartan Potassium 50 Mg Tablet 100 Mg PEG DAILY Isosorbide Dinitrate 10 Mg Tablet 20 Mg PEG TID Hydralazine Hcl 25 Mg Tablet 25 Mg PEG TID Furosemide 20 Mg Tablet 20 Mg PEG DAILY Atorvastatin Calcium 40 Mg Tablet 40 Mg PEG QHS Children's Aspirin (Aspirin) 81 Mg Tab.chew 81 Mg PO DAILYWBKFT Acetaminophen 650 Mg/20.3 Ml Solution 650 Mg PEG PRN Q4HRS PRN Reported Vitamin D3 (Cholecalciferol (Vitamin D3)) 1,000 Unit Tablet 1,000 Unit GT DAILY Vitals/I & O Vital Sign - Last 24 Hours 11/24/17 11/24/17 11/24/17 11/24/17 10:32 10:32 10:33 10:34 Pulse 75 75 75 75 B/P (MAP) 141/82 141/82 141/82 141/82 11/24/17 11/24/17 11/24/17 11/24/17 11:00 11:49 14:58 14:58 Temp 98.1 98.1 Pulse 85 85 85 Resp 18 B/P (MAP) 114/69 (84) 114/69 114/69 Pulse Ox 91 97 O2 Delivery 2L Nasal Cannula O2 Flow Rate 2.0 11/24/17 11/24/17 11/24/17 11/24/17 15:00 15:28 19:00 19:18 Temp 98.8 100.4 98.8 100.4 Pulse 85 18 Resp 18 18 B/P (MAP) 112/66 (81) 98/50 (66) Pulse Ox 99 91 96 O2 Delivery 2L Nasal Cannula Room Air Nasal Cannula O2 Flow Rate 1.0 1.0 11/24/17 11/24/17 11/25/17 11/25/17 19:23 23:00 03:00 07:00 Temp 99.4 99.4 97.6 99.4 99.4 97.6 Pulse 82 78 68 Resp 17 18 20 B/P (MAP) 102/60 (74) 126/69 (88) 133/75 (94) Pulse Ox 96 96 96 99 O2 Delivery Nasal Cannula Room Air Room Air Nasal Cannula O2 Flow Rate 1.0 2.0 11/25/17 11/25/17 11/25/17 11/25/17 07:08 08:12 08:14 08:17 Pulse 68 68 68 B/P (MAP) 133/75 133/75 133/75 Pulse Ox 96 O2 Delivery Nasal Cannula O2 Flow Rate 1.0 11/25/17 08:32 Pulse 68 B/P (MAP) 133/75 Intake and Output 11/24/17 11/24/17 11/25/17 15:00 23:00 07:00 Intake Total 360 ml 50 ml 35 ml Output Total 350 ml 300 ml Balance 360 ml -300 ml -265 ml IRWIN BELLO MD Nov 25, 2017 09:01
[2017-11-25 11:00] VITALS: BP 129/81
--- NOTE | 2017-11-25 11:21 | PDOC ---
PULMONARY PROGRESS NOTES Subjective PT WITH NO SIGN OF INCREASE SOA Vitals Vital Signs Date Time Temp Pulse Resp B/P (MAP) Pulse Ox O2 Delivery O2 Flow Rate FiO2 11/25/17 11:04 Nasal Cannula 1.0 11/25/17 08:32 68 133/75 11/25/17 07:08 96 11/25/17 07:00 97.6 20 97.6 ROS: No Nausea, No Chest Pain, No Abdominal Pain, No Increase Cough General: Alert Lungs: Clear, Other Cardiovascular: S1, S2 Abdomen: Soft Neuro Exam: Alert Extremities: Other Skin: Warm Labs Laboratory Tests Test 11/24/17 02:40 11/25/17 05:46 White Blood Count 6.3 x10^3/uL (4.0-11.0) Red Blood Count 3.27 x10^6/uL (3.50-5.40) Hemoglobin 10.3 g/dL (12.0-15.5) Hematocrit 29.8 % (36.0-47.0) Mean Corpuscular Volume 91 fL (79-100) Mean Corpuscular Hemoglobin 32 pg (25-35) Mean Corpuscular Hemoglobin Concent 35 g/dL (31-37) Red Cell Distribution Width 14.6 % (11.5-14.5) Platelet Count 190 x10^3/uL (140-400) Neutrophils (%) (Auto) 46 % (31-73) Lymphocytes (%) (Auto) 40 % (24-48) Monocytes (%) (Auto) 9 % (0-9) Eosinophils (%) (Auto) 5 % (0-3) Basophils (%) (Auto) 0 % (0-3) Neutrophils # (Auto) 2.9 x10^3uL (1.8-7.7) Lymphocytes # (Auto) 2.5 x10^3/uL (1.0-4.8) Monocytes # (Auto) 0.6 x10^3/uL (0.0-1.1) Eosinophils # (Auto) 0.3 x10^3/uL (0.0-0.7) Basophils # (Auto) 0.0 x10^3/uL (0.0-0.2) Sodium Level 136 mmol/L (136-145) 137 mmol/L (136-145) Potassium Level 4.2 mmol/L (3.5-5.1) 4.3 mmol/L (3.5-5.1) Chloride Level 104 mmol/L (98-107) 105 mmol/L (98-107) Carbon Dioxide Level 27 mmol/L (21-32) 27 mmol/L (21-32) Anion Gap 5 (6-14) 5 (6-14) Blood Urea Nitrogen 33 mg/dL (7-20) 34 mg/dL (7-20) Creatinine 1.3 mg/dL (0.6-1.0) 1.3 mg/dL (0.6-1.0) Estimated GFR (Cockcroft-Gault) 48.6 48.6 Glucose Level 101 mg/dL (70-99) 167 mg/dL (70-99) Hemoglobin A1c 5.7 % (4.8-5.6) Calcium Level 8.4 mg/dL (8.5-10.1) 9.1 mg/dL (8.5-10.1) Triglycerides Level 46 mg/dL (0-150) Cholesterol Level 115 mg/dL (0-200) LDL Cholesterol, Calculated 59 mg/dL (0-100) VLDL Cholesterol, Calculated 9 mg/dL (0-40) Non-HDL Cholesterol Calculated 68 mg/dL (0-129) HDL Cholesterol 47 mg/dL (40-60) Cholesterol/HDL Ratio 2.4 Laboratory Tests Test 11/25/17 05:46 Sodium Level 137 mmol/L (136-145) Potassium Level 4.3 mmol/L (3.5-5.1) Chloride Level 105 mmol/L (98-107) Carbon Dioxide Level 27 mmol/L (21-32) Anion Gap 5 (6-14) Blood Urea Nitrogen 34 mg/dL (7-20) Creatinine 1.3 mg/dL (0.6-1.0) Estimated GFR (Cockcroft-Gault) 48.6 Glucose Level 167 mg/dL (70-99) Calcium Level 9.1 mg/dL (8.5-10.1) Medications Active Scripts Medications Dose Route/Sig Max Daily Dose Days Date Category Prevacid (Lansoprazole) 30 Mg Tab.rap.dr 30 Mg FT BID 07/16/16 Rx Potassium Chloride Oral Liquid (Potassium Chloride) 20 Meq/15 Ml Liquid 20 Meq PEG DAILY 4/18/17 Rx Losartan Potassium 50 Mg Tablet 100 Mg PEG DAILY 07/16/16 Rx Isosorbide Dinitrate 10 Mg Tablet 20 Mg PEG TID 07/16/16 Rx Hydralazine Hcl 25 Mg Tablet 25 Mg PEG TID 07/16/16 Rx Furosemide 20 Mg Tablet 20 Mg PEG DAILY 07/16/16 Rx Atorvastatin Calcium 40 Mg Tablet 40 Mg PEG QHS 07/16/16 Rx Vitamin D3 (Cholecalciferol (Vitamin D3)) 1,000 Unit Tablet 1,000 Unit GT DAILY 11/23/14 Reported Children's Aspirin (Aspirin) 81 Mg Tab.chew 81 Mg PO DAILYWBKFT 05/01/14 Rx Acetaminophen 650 Mg/20.3 Ml Solution 650 Mg PEG PRN Q4HRS PRN 05/01/14 Rx Impression . 1. Chronic aspiration. 2. Dysphagia secondary to previous cerebrovascular accident. 3. Status post gastrostomy tube. 4. Previous CVA with right-sided hemiparesis. 5. Expressive aphasia. 6. Zmexo-ro-[id number] heart failure. 7. Coronary artery disease, status post coronary artery bypass grafting. 8. Peripheral vascular disease, status post right below-knee amputation. 9. Status post PEG J-tube placement. 10. Paroxysmal atrial fibrillation. 11. Type 2 diabetes. Plan . CONTINUE THE SAME IMPROVING 1. Recommend to continue current IV antibiotics. 2. Aggressive pulmonary hygiene. 3. Nebulized treatments. 4. Maintain head of bed at 30 degrees. 5. Maintain oropharynx clear of any secretions or frequent suctioning. Unfortunately, not much else to offer, the patient's underlying CVA with neurological deficit has resulted in all of the above. BONNIE IBARRA MD Nov 25, 2017 11:20
[2017-11-25 15:00] VITALS: BP 106/57
[2017-11-25 19:00] VITALS: BP 138/81
[2017-11-25] MEDS: ATORVASTATIN CALCIUM 40 MG TABLET. PEG SCH (20:46)
[2017-11-25] MEDS ORDERED: diphenhydrAMINE 50 MG/ML VIAL IVP PRN (21:30)
[2017-11-25 23:00] VITALS: BP 111/53
[2017-11-26 03:00] VITALS: BP 120/73
[2017-11-26 04:23] LABS: BASO % 0 % (0-3); EOS % 0 % (0-3); HEMATOCRIT 31.3 % (36.0-47.0); HEMOGLOBIN 10.7 g/dL (12.0-15.5); LYMPH % 11 % (24-48); MEAN CORPUSCULAR HEMOGLOBIN 31 pg (25-35); MEAN CORPUSCULAR HGB CONC 34 g/dL (31-37); MEAN CORPUSCULAR VOLUME 91 fL (79-100); MONO # 0.3 x10^3/uL (0.0-1.1); MONO % 3 % (0-9); NEUT # 8.5 x10^3uL (1.8-7.7); NEUT % 86 % (31-73); PLATELET COUNT 240 x10^3/uL (140-400); RED BLOOD COUNT 3.43 x10^6/uL (3.50-5.40); RED CELL DISTRIBUTION WIDTH 14.3 % (11.5-14.5); WHITE BLOOD COUNT 9.9 x10^3/uL (4.0-11.0)
[2017-11-26 04:43] LABS: CALCIUM 9.1 mg/dL (8.5-10.1); CREATININE 1.2 mg/dL (0.6-1.0); GFR 53.3; POTASSIUM 5.1 mmol/L (3.5-5.1)
[2017-11-26] MEDS: ACETAMINOPHEN 650 MG/20.3 ML SOLUTION. PEG PRN (06:22)
[2017-11-26] MEDS: IPRATRPIUM/ALBUTEROL 0.5/2.5MG 3 ML NEBU. NEB SCH ×4 (06:50→19:19)
[2017-11-26] MEDS: BUDESONIDE 0.5 MG/2 ML NEBU. NEB SCH ×2 (06:50→19:19)
[2017-11-26 07:00] VITALS: BP 130/72
[2017-11-26] MEDS ORDERED: CIPROFLOXACIN HCL 250 MG TABLET. PEG SCH (07:00)
[2017-11-26] MEDS: LANSOPRAZOLE 30 MG TAB.RAP.DR FT SCH (09:58)
[2017-11-26] MEDS: ASPIRIN CHEWABLE 81 MG TABLET. PEG SCH (09:58)
[2017-11-26] MEDS: CHOLECALCIFEROL (VITAMIN D3) 1,000 UNIT TABLET GT SCH (09:58)
[2017-11-26] MEDS: methylPREDNISolone SOD SUCC PF 40 MG/ML VIAL. IV SCH ×2 (09:59→20:24)
[2017-11-26] MEDS: POTASSIUM CHLORIDE 20 MEQ/15 ML ORAL LIQUID. PEG SCH (10:00)
[2017-11-26] MEDS: LOSARTAN POTASSIUM 50 MG TABLET. PEG SCH (10:00)
[2017-11-26] MEDS: FUROSEMIDE 20 MG TABLET PEG SCH (10:00)
[2017-11-26] MEDS: ISOSORBIDE DINITRATE 10 MG TABLET. PEG SCH ×3 (10:01→20:23)
[2017-11-26] MEDS: amLODIPine BESYLATE 10 MG TABLET PO SCH (10:01)
[2017-11-26] MEDS: hydrALAZINE 25 MG TABLET PEG SCH ×3 (10:02→20:24)
--- NOTE | 2017-11-26 10:22 | PDOC ---
PULMONARY PROGRESS NOTES Subjective PT WITH NO SIGN OF INCREASE SOA Vitals Vital Signs Date Time Temp Pulse Resp B/P (MAP) Pulse Ox O2 Delivery O2 Flow Rate FiO2 11/26/17 10:02 72 130/72 11/26/17 07:00 97.7 18 99 3L 97.7 11/26/17 06:52 1.0 ROS: No Nausea, No Chest Pain, No Abdominal Pain, No Increase Cough General: Alert Lungs: Clear, Other Cardiovascular: S1, S2 Abdomen: Soft Neuro Exam: Alert Extremities: Other Skin: Warm Labs Laboratory Tests Test 11/25/17 05:46 11/26/17 03:05 Sodium Level 137 mmol/L (136-145) 139 mmol/L (136-145) Potassium Level 4.3 mmol/L (3.5-5.1) 5.1 mmol/L (3.5-5.1) Chloride Level 105 mmol/L (98-107) 107 mmol/L (98-107) Carbon Dioxide Level 27 mmol/L (21-32) 27 mmol/L (21-32) Anion Gap 5 (6-14) 5 (6-14) Blood Urea Nitrogen 34 mg/dL (7-20) 34 mg/dL (7-20) Creatinine 1.3 mg/dL (0.6-1.0) 1.2 mg/dL (0.6-1.0) Estimated GFR (Cockcroft-Gault) 48.6 53.3 Glucose Level 167 mg/dL (70-99) 177 mg/dL (70-99) Calcium Level 9.1 mg/dL (8.5-10.1) 9.1 mg/dL (8.5-10.1) White Blood Count 9.9 x10^3/uL (4.0-11.0) Red Blood Count 3.43 x10^6/uL (3.50-5.40) Hemoglobin 10.7 g/dL (12.0-15.5) Hematocrit 31.3 % (36.0-47.0) Mean Corpuscular Volume 91 fL (79-100) Mean Corpuscular Hemoglobin 31 pg (25-35) Mean Corpuscular Hemoglobin Concent 34 g/dL (31-37) Red Cell Distribution Width 14.3 % (11.5-14.5) Platelet Count 240 x10^3/uL (140-400) Neutrophils (%) (Auto) 86 % (31-73) Lymphocytes (%) (Auto) 11 % (24-48) Monocytes (%) (Auto) 3 % (0-9) Eosinophils (%) (Auto) 0 % (0-3) Basophils (%) (Auto) 0 % (0-3) Neutrophils # (Auto) 8.5 x10^3uL (1.8-7.7) Lymphocytes # (Auto) 1.0 x10^3/uL (1.0-4.8) Monocytes # (Auto) 0.3 x10^3/uL (0.0-1.1) Eosinophils # (Auto) 0.0 x10^3/uL (0.0-0.7) Basophils # (Auto) 0.0 x10^3/uL (0.0-0.2) Laboratory Tests Test 11/26/17 03:05 White Blood Count 9.9 x10^3/uL (4.0-11.0) Red Blood Count 3.43 x10^6/uL (3.50-5.40) Hemoglobin 10.7 g/dL (12.0-15.5) Hematocrit 31.3 % (36.0-47.0) Mean Corpuscular Volume 91 fL (79-100) Mean Corpuscular Hemoglobin 31 pg (25-35) Mean Corpuscular Hemoglobin Concent 34 g/dL (31-37) Red Cell Distribution Width 14.3 % (11.5-14.5) Platelet Count 240 x10^3/uL (140-400) Neutrophils (%) (Auto) 86 % (31-73) Lymphocytes (%) (Auto) 11 % (24-48) Monocytes (%) (Auto) 3 % (0-9) Eosinophils (%) (Auto) 0 % (0-3) Basophils (%) (Auto) 0 % (0-3) Neutrophils # (Auto) 8.5 x10^3uL (1.8-7.7) Lymphocytes # (Auto) 1.0 x10^3/uL (1.0-4.8) Monocytes # (Auto) 0.3 x10^3/uL (0.0-1.1) Eosinophils # (Auto) 0.0 x10^3/uL (0.0-0.7) Basophils # (Auto) 0.0 x10^3/uL (0.0-0.2) Sodium Level 139 mmol/L (136-145) Potassium Level 5.1 mmol/L (3.5-5.1) Chloride Level 107 mmol/L (98-107) Carbon Dioxide Level 27 mmol/L (21-32) Anion Gap 5 (6-14) Blood Urea Nitrogen 34 mg/dL (7-20) Creatinine 1.2 mg/dL (0.6-1.0) Estimated GFR (Cockcroft-Gault) 53.3 Glucose Level 177 mg/dL (70-99) Calcium Level 9.1 mg/dL (8.5-10.1) Medications Active Scripts Medications Dose Route/Sig Max Daily Dose Days Date Category Prevacid (Lansoprazole) 30 Mg Tab.rap.dr 30 Mg FT BID 07/16/16 Rx Potassium Chloride Oral Liquid (Potassium Chloride) 20 Meq/15 Ml Liquid 20 Meq PEG DAILY 07/16/16 Rx Losartan Potassium 50 Mg Tablet 100 Mg PEG DAILY 07/16/16 Rx Isosorbide Dinitrate 10 Mg Tablet 20 Mg PEG TID 07/16/16 Rx Hydralazine Hcl 25 Mg Tablet 25 Mg PEG TID 07/16/16 Rx Furosemide 20 Mg Tablet 20 Mg PEG DAILY 07/16/16 Rx Atorvastatin Calcium 40 Mg Tablet 40 Mg PEG QHS 07/16/16 Rx Vitamin D3 (Cholecalciferol (Vitamin D3)) 1,000 Unit Tablet 1,000 Unit GT DAILY 11/23/14 Reported Children's Aspirin (Aspirin) 81 Mg Tab.chew 81 Mg PO DAILYWBKFT 05/01/14 Rx Acetaminophen 650 Mg/20.3 Ml Solution 650 Mg PEG PRN Q4HRS PRN 05/01/14 Rx Impression . 1. Chronic aspiration. 2. Dysphagia secondary to previous cerebrovascular accident. 3. Status post gastrostomy tube. 4. Previous CVA with right-sided hemiparesis. 5. Expressive aphasia. 6. Mvyad-kp-mpfwgrq heart failure. 7. Coronary artery disease, status post coronary artery bypass grafting. 8. Peripheral vascular disease, status post right below-knee amputation. 9. Status post PEG J-tube placement. 10. Paroxysmal atrial fibrillation. 11. Type 2 diabetes. 12 UTI URINE CULTURE Final Final report URINE CULTURE RES 1 Final Enterococcus faecalis Greater than 100,000 colony forming units per mL ANTIMICROBIAL SUSCEPTIBILITY Final Comment S = Susceptible; I = Intermediate; R = Resistant P = Positive; N = Negative MICS are expressed in micrograms per mL Antibiotic RSLT#1 RSLT#2 RSLT#3 RSLT#4 Ciprofloxacin R>=8 Levofloxacin R>=8 Nitrofurantoin S<=16 Penicillin S =4 Tetracycline R>=16 Vancomycin S =1 Performed at: - [facility] [address] [place] [address] [address], [place], [place] [id number] Prison Officer: ELVIS Dang MD, Phone: [phone] Plan . CONTINUE THE SAME, SPOKE WITH AT BEDSIDE WILL CONSULT ID ON CIPRO, FOR NOW ENTEROCOCCUS IS RESISTANT TO CIPRO LESS UPPER AIRWAY NOISE BONNIE IBARRA MD Nov 26, 2017 10:22
--- NOTE | 2017-11-26 10:31 | PDOC ---
[employer] 11/26/17 1031: CARDIO Progress Notes Date and Time Date of Service 11/26/17 Time of Evaluation 1028 Subjective Subjective: Other (aphasic) Vitals Vitals Vital Signs Date Time Temp Pulse Resp B/P (MAP) Pulse Ox O2 Delivery O2 Flow Rate FiO2 11/26/17 10:02 72 130/72 11/26/17 07:00 97.7 18 99 3L 97.7 11/26/17 06:52 1.0 Weight Weight [ ] Input and Output Intake and Output Intake and Output 11/26/17 07:00 Intake Total 3865 ml Output Total 825 ml Balance 3040 ml IV Total 50 ml Tube Feeding 3815 ml Output Urine Total 725 ml Gastric Drainage Total 100 ml # Bowel Movements 1 Laboratory Labs Laboratory Tests Test 11/26/17 03:05 White Blood Count 9.9 x10^3/uL (4.0-11.0) Red Blood Count 3.43 x10^6/uL (3.50-5.40) Hemoglobin 10.7 g/dL (12.0-15.5) Hematocrit 31.3 % (36.0-47.0) Mean Corpuscular Volume 91 fL (79-100) Mean Corpuscular Hemoglobin 31 pg (25-35) Mean Corpuscular Hemoglobin Concent 34 g/dL (31-37) Red Cell Distribution Width 14.3 % (11.5-14.5) Platelet Count 240 x10^3/uL (140-400) Neutrophils (%) (Auto) 86 % (31-73) Lymphocytes (%) (Auto) 11 % (24-48) Monocytes (%) (Auto) 3 % (0-9) Eosinophils (%) (Auto) 0 % (0-3) Basophils (%) (Auto) 0 % (0-3) Neutrophils # (Auto) 8.5 x10^3uL (1.8-7.7) Lymphocytes # (Auto) 1.0 x10^3/uL (1.0-4.8) Monocytes # (Auto) 0.3 x10^3/uL (0.0-1.1) Eosinophils # (Auto) 0.0 x10^3/uL (0.0-0.7) Basophils # (Auto) 0.0 x10^3/uL (0.0-0.2) Sodium Level 139 mmol/L (136-145) Potassium Level 5.1 mmol/L (3.5-5.1) Chloride Level 107 mmol/L (98-107) Carbon Dioxide Level 27 mmol/L (21-32) Anion Gap 5 (6-14) Blood Urea Nitrogen 34 mg/dL (7-20) Creatinine 1.2 mg/dL (0.6-1.0) Estimated GFR (Cockcroft-Gault) 53.3 Glucose Level 177 mg/dL (70-99) Calcium Level 9.1 mg/dL (8.5-10.1) Microbiology Micro Microbiology 11/22/17 Urine Culture - Final, Complete 11/22/17 Urine Culture Result 1 (KIRSTY) - Final, Complete 11/22/17 Antimicrobic Susceptibility - Final, Complete Physical Exam HEENT: Neck Supple W Full Motion Chest: Symmetric LUNGS: Other (coarse anteriorly) Heart: S1S2 Abdomen: Soft N/T Extremities: Other (LE boots) Neurology: non-verbal, other (awake) Diagnostic Tests Echocardiogram: Normal LVEF Assessment Assessment 1. acute/chronic diastolic HF --LVEF 40-45% in 2015; now preserved --continue oral diuretics --compensated 2. CAD --cath in 2013 as noted --continue secondary prevention 3. aspiration pneumonia --per pulm and primary service 4. CVA with residual right hemiparesis and aphasia agreeable with discharge when planned by primary service SERENA MEMBRENO MD 11/26/17 1541: CARDIO Progress Notes Assessment Assessment Compensated diastolic heart failure. LVEF 40-45% in 2015; now preserved. Continue present treatment. CAD cath in 2013 as noted. No chest pain. Continue present medications. Aspiration pneumonia --per pulm and primary service CVA with residual right hemiparesis and aphasia MAE DAVILA APRN Nov 26, 2017 10:31 SERENA MEMBRENO MD Nov 26, 2017 15:41
[2017-11-26 11:00] VITALS: BP 113/61
[2017-11-26] MEDS ORDERED: VANCOMYCIN 1GM IVPB FOR OMNI 250 ML IV ONE (14:45)
[2017-11-26 15:00] VITALS: BP 129/72
--- NOTE | 2017-11-26 15:19 | PDOC ---
PROGRESS NOTES Subjective Subjective seen earlier today.urine culture grew enterococcus sensitive to PCN and will d/ c cipro and switch to augmentin. alert . Objective Objective Vital Signs Date Time Temp Pulse Resp B/P (MAP) Pulse Ox O2 Delivery O2 Flow Rate FiO2 11/26/17 15:02 Nasal Cannula 1.0 11/26/17 14:15 83 120/76 11/26/17 11:00 98.4 18 95 98.4 Intake and Output 11/26/17 07:00 Intake Total 3865 ml Output Total 825 ml Balance 3040 ml IV Total 50 ml Tube Feeding 3815 ml Output Urine Total 725 ml Gastric Drainage Total 100 ml # Bowel Movements 1 Physical Exam Abdomen: Soft, Other (PEG) Heart: Regular rate, Normal S1, Normal S2 Extremities: No edema, Other (right AKA) General: Alert HEENT: Atraumatic Lungs: Clear to auscultation, Other (few rhonchi) Neuro: Other (aphasic with right hemiparesis) Psych/Mental Status: Mood NL Skin: No rashes Assessment Assessment Problems Acute on chronic systolic congestive heart failure, which is compensated 2. Cardiomyopathy resolved. LVEF 55% 3. Coronary artery disease with previous coronary artery bypass graft surgery and a coronary angioplasty to circumflex coronary artery in the past. 4. Peripheral arterial disease. 5. 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 6. PEG tube feedings. 7. History of right above-knee amputation. 8. Paroxysmal atrial fibrillation, but not a Coumadin candidate. 9. Diabetes mellitus type 2, treated with diet. 10. Hypertension. 11. Hyperlipidemia. 12. Severe protein calorie malnutrition. 13. Chronic kidney disease stage 3. 14. enterococcus uti upper airway rhonchi /wheezes due to bronchial and tracheal secretions improving possible aspiration . cxr without lung infiltrate Medical Problems: (1) CHF exacerbation Status: Acute (2) UTI (urinary tract infection) Status: Acute Plan Plan of Care change vásquez start augmentin d/c kcl continue nebulizer rx and oxygen and iv solumedrol Comment Review of Relevant I have reviewed the following items sarah (where applicable) has been applied. Labs Laboratory Tests Test 11/25/17 05:46 11/26/17 03:05 Sodium Level 137 mmol/L (136-145) 139 mmol/L (136-145) Potassium Level 4.3 mmol/L (3.5-5.1) 5.1 mmol/L (3.5-5.1) Chloride Level 105 mmol/L (98-107) 107 mmol/L (98-107) Carbon Dioxide Level 27 mmol/L (21-32) 27 mmol/L (21-32) Anion Gap 5 (6-14) 5 (6-14) Blood Urea Nitrogen 34 mg/dL (7-20) 34 mg/dL (7-20) Creatinine 1.3 mg/dL (0.6-1.0) 1.2 mg/dL (0.6-1.0) Estimated GFR (Cockcroft-Gault) 48.6 53.3 Glucose Level 167 mg/dL (70-99) 177 mg/dL (70-99) Calcium Level 9.1 mg/dL (8.5-10.1) 9.1 mg/dL (8.5-10.1) White Blood Count 9.9 x10^3/uL (4.0-11.0) Red Blood Count 3.43 x10^6/uL (3.50-5.40) Hemoglobin 10.7 g/dL (12.0-15.5) Hematocrit 31.3 % (36.0-47.0) Mean Corpuscular Volume 91 fL (79-100) Mean Corpuscular Hemoglobin 31 pg (25-35) Mean Corpuscular Hemoglobin Concent 34 g/dL (31-37) Red Cell Distribution Width 14.3 % (11.5-14.5) Platelet Count 240 x10^3/uL (140-400) Neutrophils (%) (Auto) 86 % (31-73) Lymphocytes (%) (Auto) 11 % (24-48) Monocytes (%) (Auto) 3 % (0-9) Eosinophils (%) (Auto) 0 % (0-3) Basophils (%) (Auto) 0 % (0-3) Neutrophils # (Auto) 8.5 x10^3uL (1.8-7.7) Lymphocytes # (Auto) 1.0 x10^3/uL (1.0-4.8) Monocytes # (Auto) 0.3 x10^3/uL (0.0-1.1) Eosinophils # (Auto) 0.0 x10^3/uL (0.0-0.7) Basophils # (Auto) 0.0 x10^3/uL (0.0-0.2) Laboratory Tests Test 11/26/17 03:05 White Blood Count 9.9 x10^3/uL (4.0-11.0) Red Blood Count 3.43 x10^6/uL (3.50-5.40) Hemoglobin 10.7 g/dL (12.0-15.5) Hematocrit 31.3 % (36.0-47.0) Mean Corpuscular Volume 91 fL (79-100) Mean Corpuscular Hemoglobin 31 pg (25-35) Mean Corpuscular Hemoglobin Concent 34 g/dL (31-37) Red Cell Distribution Width 14.3 % (11.5-14.5) Platelet Count 240 x10^3/uL (140-400) Neutrophils (%) (Auto) 86 % (31-73) Lymphocytes (%) (Auto) 11 % (24-48) Monocytes (%) (Auto) 3 % (0-9) Eosinophils (%) (Auto) 0 % (0-3) Basophils (%) (Auto) 0 % (0-3) Neutrophils # (Auto) 8.5 x10^3uL (1.8-7.7) Lymphocytes # (Auto) 1.0 x10^3/uL (1.0-4.8) Monocytes # (Auto) 0.3 x10^3/uL (0.0-1.1) Eosinophils # (Auto) 0.0 x10^3/uL (0.0-0.7) Basophils # (Auto) 0.0 x10^3/uL (0.0-0.2) Sodium Level 139 mmol/L (136-145) Potassium Level 5.1 mmol/L (3.5-5.1) Chloride Level 107 mmol/L (98-107) Carbon Dioxide Level 27 mmol/L (21-32) Anion Gap 5 (6-14) Blood Urea Nitrogen 34 mg/dL (7-20) Creatinine 1.2 mg/dL (0.6-1.0) Estimated GFR (Cockcroft-Gault) 53.3 Glucose Level 177 mg/dL (70-99) Calcium Level 9.1 mg/dL (8.5-10.1) Microbiology 11/22/17 Urine Culture - Final, Complete 11/22/17 Urine Culture Result 1 (KIRSTY) - Final, Complete 11/22/17 Antimicrobic Susceptibility - Final, Complete Medications Current Medications Furosemide (Lasix) 40 mg 1X ONCE PO ; Start 11/22/17 at 20:30; Stop 11/22/17 at 20:31; Status DC Furosemide (Lasix) 40 mg 1X ONCE IVP Last administered on 11/22/17at 21:35; Start 11/22/17 at 21:30; Stop 11/22/17 at 21:31; Status DC Fentanyl Citrate (Fentanyl 2ml Vial) 50 mcg PRN Q2HR PRN IV PAIN; Start at 22:30; Stop 11/23/17 at 22:29; Status DC Ceftriaxone Sodium 50 ml @ 100 mls/hr 1X ONCE IV Last administered on at 00:10; Start 11/22/17 at 23:15; Stop 11/22/17 at 23:44; Status DC Acetaminophen (Tylenol) 650 mg PRN Q6HRS PRN PEG MILD PAIN / TEMP; Start at 23:15; Stop 11/22/17 at 23:46; Status DC Aspirin (Children'S Aspirin) 81 mg DAILYWBKFT PO Last administered on at 08:57; Start 11/23/17 at 08:00; Stop 11/23/17 at 11:13; Status DC Atorvastatin Calcium (Lipitor) 40 mg QHS PEG Last administered on 11/25/17at 20: 46; Start 11/23/17 at 21:00 Vitamin D (Vitamin D3) 1,000 unit DAILY GT Last administered on 11/26/17at 09:58 ; Start 11/23/17 at 09:00 Furosemide (Lasix) 20 mg DAILY PEG Last administered on 11/26/17at 10:00; Start 11/23/17 at 09:00 Isosorbide Dinitrate (Isordil) 20 mg TID PEG Last administered on 11/26/17at 14: 15; Start 11/23/17 at 09:00 Lansoprazole (Prevacid) 30 mg BIDBFRMEAL FT Last administered on 11/23/17at 08: 57; Start 11/23/17 at 07:30; Stop 11/23/17 at 11:13; Status DC Losartan Potassium (Cozaar) 100 mg DAILY PEG Last administered on 11/26/17 10: 00; Start 11/23/17 at 09:00 Acetaminophen (Tylenol) 650 mg PRN Q4HRS PRN PEG MILD PAIN / TEMP Last administered on 11/23/17at 20:53; Start 11/22/17 at 23:45; Stop 11/24/17 at 13:55 ; Status DC Hydralazine HCl (Apresoline) 25 mg TID PEG Last administered on 11/26/17 14:14 ; Start 11/23/17 at 09:00 Potassium Chloride (KCl Oral Soln) 20 meq DAILY PEG Last administered on 10:00; Start 11/23/17 at 09:00 Aspirin (Children'S Aspirin) 81 mg DAILYWBKFT PEG Last administered on 09:58; Start 11/24/17 at 08:00 Lansoprazole (Prevacid) 30 mg DAILY FT Last administered on 11/26/17 09:58; Start 11/24/17 at 09:00 Acetaminophen (Tylenol) 650 mg PRN Q6HRS PRN PEG MILD PAIN / TEMP Last administered on 11/26/17 06:22; Start 11/23/17 at 11:15 Magnesium Hydroxide (Milk Of Magnesia) 2,400 mg PRN DAILY PRN PEG CONSTIPATION ; Start 11/23/17 at 11:15 Ceftriaxone Sodium 1 gm/ Dextrose 50 ml @ 100 mls/hr Q24H IV ; Start 11/23/17 at 23:15; Status UNV Ceftriaxone Sodium (Rocephin) 1 gm Q24H IVP Last administered on 11/24/17at 12: 13; Start 11/23/17 at 11:30; Stop 11/24/17 at 14:46; Status DC Amlodipine Besylate (Norvasc) 10 mg DAILY PO ; Start 11/23/17 at 18:00; Status Cancel Amlodipine Besylate (Norvasc) 10 mg DAILY PO Last administered on 11/26/17at 10: 01; Start 11/24/17 at 09:00 Albuterol/ Ipratropium (Duoneb) 3 ml RTQID NEB Last administered on 11/26/17at 15:01; Start 11/24/17 at 09:00 Budesonide (Pulmicort) 0.5 mg RTBID NEB Last administered on 11/26/17at 06:50; Start 11/24/17 at 09:00 Methylprednisolone Sodium Succinate (SOLU-Medrol 40MG VIAL) 40 mg Q12HR IV Last administered on 11/26/17at 09:59; Start 11/24/17 at 09:00 Lactobacillus Rhamnosus (Culturelle) 1 cap BID PO Last administered on at 08:14; Start 11/24/17 at 21:00; Stop 11/25/17 at 08:23; Status DC Piperacillin Sod/ Tazobactam Sod (Zosyn Per Pharmacy) 1 each PRN DAILY PRN MC SEE COMMENTS; Start 11/24/17 at 14:45; Stop 11/25/17 at 21:25; Status DC Albuterol Sulfate (Ventolin Neb Soln) 2.5 mg QID NEB ; Start 11/24/17 at 17:00; Status UNV Albuterol Sulfate (Ventolin Neb Soln) 2.5 mg PRN Q2HR PRN NEB [id number]; Start at 15:00 Piperacillin Sod/ Tazobactam Sod 3.375 gm/Sodium Chloride 50 ml @ 100 mls/hr Q6HRS IV Last administered on 11/25/17at 17:50; Start 11/24/17 at 16:00; Stop at 21:49; Status DC Ciprofloxacin (Cipro) 250 mg [id number] PEG Last administered on 11/26/17at 06:22; Start 11/26/17 at 07:00 Diphenhydramine HCl (Benadryl) 25 mg PRN Q6HRS PRN IVP ITCHING; Start 11/25/17 at 21:30 Vancomycin HCl 250 ml @ 250 mls/hr 1X ONCE IV ; Start 11/26/17 at 14:45; Stop 11/26/17 at 15:44; Status UNV Vancomycin HCl 1.75 gm/Sodium Chloride 500 ml @ 250 mls/hr 1X ONCE IV ; Start 11/26/17 at 15:30; Stop 11/26/17 at 17:29 Active Scripts Active Prevacid (Lansoprazole) 30 Mg Tab.rap.dr 30 Mg FT BID Potassium Chloride Oral Liquid (Potassium Chloride) 20 Meq/15 Ml Liquid 20 Meq PEG DAILY Losartan Potassium 50 Mg Tablet 100 Mg PEG DAILY Isosorbide Dinitrate 10 Mg Tablet 20 Mg PEG TID Hydralazine Hcl 25 Mg Tablet 25 Mg PEG TID Furosemide 20 Mg Tablet 20 Mg PEG DAILY Atorvastatin Calcium 40 Mg Tablet 40 Mg PEG QHS Children's Aspirin (Aspirin) 81 Mg Tab.chew 81 Mg PO DAILYWBKFT Acetaminophen 650 Mg/20.3 Ml Solution 650 Mg PEG PRN Q4HRS PRN Reported Vitamin D3 (Cholecalciferol (Vitamin D3)) 1,000 Unit Tablet 1,000 Unit GT DAILY Vitals/I & O Vital Sign - Last 24 Hours 11/25/17 11/25/17 11/25/17 11/25/17 15:17 15:17 19:00 19:19 Temp 98.3 98.3 Pulse 72 72 90 Resp 20 B/P (MAP) 129/81 129/81 138/81 (100) Pulse Ox 96 O2 Delivery Nasal Cannula Nasal Cannula O2 Flow Rate 1.0 11/25/17 11/25/17 11/25/17 11/25/17 19:20 20:00 20:46 20:46 Pulse 90 90 B/P (MAP) 138/81 138/81 O2 Delivery Nasal Cannula Nasal Cannula O2 Flow Rate 1.0 1.0 11/25/17 11/26/17 11/26/17 11/26/17 23:00 03:00 06:52 07:00 Temp 99.0 98.2 97.7 99.0 98.2 97.7 Pulse 86 87 72 Resp 20 20 18 B/P (MAP) 111/53 (72) 120/73 (89) 130/72 (91) Pulse Ox 96 97 98 99 O2 Delivery Nasal Cannula Nasal Cannula Nasal Cannula 3L O2 Flow Rate 1.0 11/26/17 11/26/17 11/26/17 11/26/17 08:00 10:00 10:01 10:01 Pulse 72 72 72 B/P (MAP) 130/72 130/72 130/72 O2 Delivery Nasal Cannula 11/26/17 11/26/17 11/26/17 11/26/17 10:02 10:49 11:00 14:14 Temp 98.4 98.4 Pulse 72 80 83 Resp 18 B/P (MAP) 130/72 113/61 (78) 120/76 Pulse Ox 95 O2 Delivery Nasal Cannula 3l O2 Flow Rate 1.0 11/26/17 11/26/17 14:15 15:02 Pulse 83 B/P (MAP) 120/76 O2 Delivery Nasal Cannula O2 Flow Rate 1.0 Intake and Output 11/25/17 11/25/17 11/26/17 15:00 23:00 07:00 Intake Total 1180 ml 1560 ml 1125 ml Output Total 100 ml 375 ml 350 ml Balance 1080 ml 1185 ml 775 ml IRWIN BELLO MD Nov 26, 2017 15:19
[2017-11-26] MEDS ORDERED: VANCOMYCIN 1.75 GM in IV NORMAL SALINE 500ML BAG 500 ML IV ONE (15:30)
[2017-11-26 19:00] VITALS: BP 118/97
[2017-11-26] MEDS: AMOXICILLIN/CLAV 400MG/57MG 5 ML ORAL.SUSP. PEG SCH (20:23)
[2017-11-26] MEDS: ATORVASTATIN CALCIUM 40 MG TABLET. PEG SCH (20:26)
[2017-11-26 23:00] VITALS: BP 124/77
[2017-11-27 03:00] VITALS: BP 124/98
[2017-11-27 04:57] LABS: CALCIUM 8.7 mg/dL (8.5-10.1); CREATININE 1.1 mg/dL (0.6-1.0); GFR 58.9
[2017-11-27 07:21] VITALS: BP 129/54
[2017-11-27] MEDS: IPRATRPIUM/ALBUTEROL 0.5/2.5MG 3 ML NEBU. NEB SCH ×3 (07:21→15:43)
[2017-11-27] MEDS: BUDESONIDE 0.5 MG/2 ML NEBU. NEB SCH (07:21)
--- NOTE | 2017-11-27 09:19 | PDOC ---
PULMONARY PROGRESS NOTES Subjective PT WITH NO SIGN OF INCREASE SOA Vitals Vital Signs Date Time Temp Pulse Resp B/P (MAP) Pulse Ox O2 Delivery O2 Flow Rate FiO2 11/27/17 07:21 97 Nasal Cannula 1.0 11/27/17 07:21 97.4 52 20 129/54 (79) 97.4 ROS: No Nausea, No Chest Pain, No Abdominal Pain, No Increase Cough General: Alert Lungs: Clear, Other Cardiovascular: S1, S2 Abdomen: Soft Neuro Exam: Alert Extremities: Other Skin: Warm Labs Laboratory Tests Test 11/26/17 03:05 11/27/17 03:15 White Blood Count 9.9 x10^3/uL (4.0-11.0) Red Blood Count 3.43 x10^6/uL (3.50-5.40) Hemoglobin 10.7 g/dL (12.0-15.5) Hematocrit 31.3 % (36.0-47.0) Mean Corpuscular Volume 91 fL (79-100) Mean Corpuscular Hemoglobin 31 pg (25-35) Mean Corpuscular Hemoglobin Concent 34 g/dL (31-37) Red Cell Distribution Width 14.3 % (11.5-14.5) Platelet Count 240 x10^3/uL (140-400) Neutrophils (%) (Auto) 86 % (31-73) Lymphocytes (%) (Auto) 11 % (24-48) Monocytes (%) (Auto) 3 % (0-9) Eosinophils (%) (Auto) 0 % (0-3) Basophils (%) (Auto) 0 % (0-3) Neutrophils # (Auto) 8.5 x10^3uL (1.8-7.7) Lymphocytes # (Auto) 1.0 x10^3/uL (1.0-4.8) Monocytes # (Auto) 0.3 x10^3/uL (0.0-1.1) Eosinophils # (Auto) 0.0 x10^3/uL (0.0-0.7) Basophils # (Auto) 0.0 x10^3/uL (0.0-0.2) Sodium Level 139 mmol/L (136-145) 138 mmol/L (136-145) Potassium Level 5.1 mmol/L (3.5-5.1) 5.0 mmol/L (3.5-5.1) Chloride Level 107 mmol/L (98-107) 106 mmol/L (98-107) Carbon Dioxide Level 27 mmol/L (21-32) 29 mmol/L (21-32) Anion Gap 5 (6-14) 3 (6-14) Blood Urea Nitrogen 34 mg/dL (7-20) 41 mg/dL (7-20) Creatinine 1.2 mg/dL (0.6-1.0) 1.1 mg/dL (0.6-1.0) Estimated GFR (Cockcroft-Gault) 53.3 58.9 Glucose Level 177 mg/dL (70-99) 263 mg/dL (70-99) Calcium Level 9.1 mg/dL (8.5-10.1) 8.7 mg/dL (8.5-10.1) Laboratory Tests Test 11/27/17 03:15 Sodium Level 138 mmol/L (136-145) Potassium Level 5.0 mmol/L (3.5-5.1) Chloride Level 106 mmol/L (98-107) Carbon Dioxide Level 29 mmol/L (21-32) Anion Gap 3 (6-14) Blood Urea Nitrogen 41 mg/dL (7-20) Creatinine 1.1 mg/dL (0.6-1.0) Estimated GFR (Cockcroft-Gault) 58.9 Glucose Level 263 mg/dL (70-99) Calcium Level 8.7 mg/dL (8.5-10.1) Medications Active Scripts Medications Dose Route/Sig Max Daily Dose Days Date Category Prevacid (Lansoprazole) 30 Mg Tab.rap.dr 30 Mg FT BID 07/16/16 Rx Potassium Chloride Oral Liquid (Potassium Chloride) 20 Meq/15 Ml Liquid 20 Meq PEG DAILY 07/16/16 Rx Losartan Potassium 50 Mg Tablet 100 Mg PEG DAILY 07/16/16 Rx Isosorbide Dinitrate 10 Mg Tablet 20 Mg PEG TID 07/16/16 Rx Hydralazine Hcl 25 Mg Tablet 25 Mg PEG TID 07/16/16 Rx Furosemide 20 Mg Tablet 20 Mg PEG DAILY 07/16/16 Rx Atorvastatin Calcium 40 Mg Tablet 40 Mg PEG QHS 07/16/16 Rx Vitamin D3 (Cholecalciferol (Vitamin D3)) 1,000 Unit Tablet 1,000 Unit GT DAILY 11/23/14 Reported Children's Aspirin (Aspirin) 81 Mg Tab.chew 81 Mg PO DAILYWBKFT 05/01/14 Rx Acetaminophen 650 Mg/20.3 Ml Solution 650 Mg PEG PRN Q4HRS PRN 05/01/14 Rx Impression . 1. Chronic aspiration. 2. Dysphagia secondary to previous cerebrovascular accident. 3. Status post gastrostomy tube. 4. Previous CVA with right-sided hemiparesis. 5. Expressive aphasia. 6. [id number] heart failure. 7. Coronary artery disease, status post coronary artery bypass grafting. 8. Peripheral vascular disease, status post right below-knee amputation. 9. Status post PEG J-tube placement. 10. Paroxysmal atrial fibrillation. 11. Type 2 diabetes. 12 UTI URINE CULTURE Final Final report URINE CULTURE RES 1 Final Enterococcus faecalis Greater than 100,000 colony forming units per mL ANTIMICROBIAL SUSCEPTIBILITY Final Comment S = Susceptible; I = Intermediate; R = Resistant P = Positive; N = Negative MICS are expressed in micrograms per mL Antibiotic RSLT#1 RSLT#2 RSLT#3 RSLT#4 Ciprofloxacin R>=8 Levofloxacin R>=8 Nitrofurantoin S<=16 Penicillin S =4 Tetracycline R>=16 Vancomycin S =1 Performed at: - [facility] [id number], [place], [place] [id number] Fire Protection Equipment Technician: ELVIS Dang MD, Phone: [phone] Plan . D/W DR BELLO OK TO BONNIE DOS SANTOS MD Nov 27, 2017 09:19
[2017-11-27] MEDS: AMOXICILLIN/CLAV 400MG/57MG 5 ML ORAL.SUSP. PEG SCH (09:44)
[2017-11-27] MEDS: LOSARTAN POTASSIUM 50 MG TABLET. PEG SCH (09:49)
[2017-11-27] MEDS: hydrALAZINE 25 MG TABLET PEG SCH ×2 (09:49→16:08)
[2017-11-27] MEDS: FUROSEMIDE 20 MG TABLET PEG SCH (09:50)
[2017-11-27] MEDS: CHOLECALCIFEROL (VITAMIN D3) 1,000 UNIT TABLET GT SCH (09:50)
[2017-11-27] MEDS: LANSOPRAZOLE 30 MG TAB.RAP.DR FT SCH (09:50)
[2017-11-27] MEDS: amLODIPine BESYLATE 10 MG TABLET PO SCH (09:50)
[2017-11-27] MEDS: ASPIRIN CHEWABLE 81 MG TABLET. PEG SCH (09:50)
[2017-11-27] MEDS: methylPREDNISolone SOD SUCC PF 40 MG/ML VIAL. IV SCH (10:30)
[2017-11-27 11:00] VITALS: BP 122/58
[2017-11-27] MEDS: ISOSORBIDE DINITRATE 10 MG TABLET. PEG SCH ×2 (11:00→16:09)
--- NOTE | 2017-11-27 11:37 | PDOC ---
Infectious Disease Note Subjective: Subjective pt seen dictated [id number] ROS: ROS Negative except for above. Vital Signs: Vital Signs Vital Signs Date Time Temp Pulse Resp B/P (MAP) Pulse Ox O2 Delivery O2 Flow Rate FiO2 11/27/17 11:00 52 129/54 11/27/17 07:21 97 Nasal Cannula 1.0 11/27/17 07:21 97.4 20 97.4 Medications: Inpatient Meds: Current Medications Medications (Trade) Dose Ordered Sig/Courtney Start Time Stop Time Status Last Admin Dose Admin Acetaminophen (Tylenol) 650 mg PRN Q6HRS PRN 11/23/17 11:15 11/26/17 06:22 650 MG Albuterol Sulfate (Ventolin Neb Soln) 2.5 mg PRN Q2HR PRN 11/24/17 15:00 Albuterol/ Ipratropium (Duoneb) 3 ml RTQID 11/24/17 09:00 11/27/17 07:21 3 ML Amlodipine Besylate (Norvasc) 10 mg DAILY 11/24/17 09:00 11/27/17 09:50 10 MG Amoxicillin/ Clavulanate Potassium (Augmentin 400-57mg/5ml Susp) 5 ml Q12HR 11/26/17 21:00 11/27/17 09:44 5 ML Aspirin (Children'S Aspirin) 81 mg DAILYWBKFT 11/24/17 08:00 11/27/17 09:50 81 MG Atorvastatin Calcium (Lipitor) 40 mg QHS 11/23/17 21:00 11/26/17 20:26 40 MG Budesonide (Pulmicort) 0.5 mg RTBID 11/24/17 09:00 11/27/17 07:21 0.5 MG Ceftriaxone Sodium 1 gm/ Dextrose 50 ml @ 100 mls/hr Q24H 11/23/17 23:15 UNV Ceftriaxone Sodium (Rocephin) 1 gm Q24H 11/23/17 11:30 11/24/17 14:46 DC 11/24/17 12:13 1 GM Ciprofloxacin (Cipro) 250 mg [id number] 11/26/17 07:00 11/26/17 15:16 DC 11/26/17 06:22 250 MG Diphenhydramine HCl (Benadryl) 25 mg PRN Q6HRS PRN 11/25/17 21:30 Fentanyl Citrate (Fentanyl 2ml Vial) 50 mcg PRN Q2HR PRN 11/22/17 22:30 11/23/17 22:29 DC Furosemide (Lasix) 20 mg DAILY 11/23/17 09:00 11/27/17 09:50 20 MG Hydralazine HCl (Apresoline) 25 mg TID 11/23/17 09:00 11/27/17 09:49 25 MG Isosorbide Dinitrate (Isordil) 20 mg TID 11/23/17 09:00 11/27/17 11:00 20 MG Lactobacillus Rhamnosus (Culturelle) 1 cap BID 11/24/17 21:00 11/25/17 08:23 DC 11/25/17 08:14 1 CAP Lansoprazole (Prevacid) 30 mg DAILY 11/24/17 09:00 11/27/17 09:50 30 MG Losartan Potassium (Cozaar) 100 mg DAILY 11/23/17 09:00 11/27/17 09:49 100 MG Magnesium Hydroxide (Milk Of Magnesia) 2,400 mg PRN DAILY PRN 11/23/17 11:15 Methylprednisolone Sodium Succinate (SOLU-Medrol 40MG VIAL) 40 mg Q12HR 11/24/17 09:00 11/27/17 10:30 40 MG Piperacillin Sod/ Tazobactam Sod (Zosyn Per Pharmacy) 1 each PRN DAILY PRN 11/24/17 14:45 11/25/17 21:25 DC Piperacillin Sod/ Tazobactam Sod 3.375 gm/Sodium Chloride 50 ml @ 100 mls/hr Q6HRS 11/24/17 16:00 11/25/17 21:49 DC 11/25/17 17:50 100 MLS/HR Potassium Chloride (KCl Oral Soln) 20 meq DAILY 11/23/17 09:00 11/26/17 15:16 DC 11/26/17 10:00 20 MEQ Vancomycin HCl 1.75 gm/Sodium Chloride 500 ml @ 250 mls/hr 1X ONCE 11/26/17 15:30 11/26/17 17:29 DC Vitamin D (Vitamin D3) 1,000 unit DAILY 11/23/17 09:00 11/27/17 09:50 1,000 UNIT Labs: Lab Laboratory Tests Test 11/27/17 03:15 Sodium Level 138 mmol/L (136-145) Potassium Level 5.0 mmol/L (3.5-5.1) Chloride Level 106 mmol/L (98-107) Carbon Dioxide Level 29 mmol/L (21-32) Anion Gap 3 (6-14) Blood Urea Nitrogen 41 mg/dL (7-20) Creatinine 1.1 mg/dL (0.6-1.0) Estimated GFR (Cockcroft-Gault) 58.9 Glucose Level 263 mg/dL (70-99) Calcium Level 8.7 mg/dL (8.5-10.1) Objective: Assessment: Enterococcus uti chronic indwelling vásquez, changed 11/26 Dyspnea acute on chronic diastolic failure compensated Plan: Plan of Care cont augmentin for a total of 10 days agree with consideration for SPC as per plans as outpt D/W RN Thank you BONNIE APARICIO MD Nov 27, 2017 11:37
--- NOTE | 2017-11-27 13:31 | PDOC ---
PROGRESS NOTES Subjective Subjective alert . discussed with dr. high. lab reviewed. blood sugars high due to steroids and will switch to oral prednisone taper,. blood pressure is okay. has upper airway rhonchi which will persist as she declines to open mouth to allow oral secretions to be suctioned out. she has dysphagia. Objective Objective Vital Signs Date Time Temp Pulse Resp B/P (MAP) Pulse Ox O2 Delivery O2 Flow Rate FiO2 11/27/17 12:06 98 Nasal Cannula 1.0 11/27/17 11:00 52 129/54 11/27/17 11:00 98.5 20 98.5 Intake and Output 11/27/17 07:00 Intake Total 3045 ml Output Total 1530 ml Balance 1515 ml Intake Oral 0 ml Tube Feeding 3045 ml Output Urine Total 1450 ml Gastric Drainage Total 80 ml # Bowel Movements 1 Physical Exam Abdomen: Soft, Other (peg) Heart: Regular rate, Normal S1, Normal S2 Extremities: No edema General: Alert HEENT: Atraumatic Lungs: Other (upper airway mild rhonchi in neck transmitted to upper anterior lungs. ) Neuro: Other (aphasic with right sided hemiparesis) Psych/Mental Status: Mood NL Skin: No rashes Assessment Assessment Problems Acute on chronic systolic congestive heart failure, which is compensated 2. Cardiomyopathy resolved. LVEF 55% 3. Coronary artery disease with previous coronary artery bypass graft surgery and a coronary angioplasty to circumflex coronary artery in the past. 4. Peripheral arterial disease. 5. 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 6. PEG tube feedings. 7. History of right above-knee amputation. 8. Paroxysmal atrial fibrillation, but not a Coumadin candidate. 9. Diabetes mellitus type 2, treated with diet. 10. Hypertension. 11. Hyperlipidemia. 12. Severe protein calorie malnutrition. 13. Chronic kidney disease stage 3. 14. enterococcus uti upper airway rhonchi /wheezes due to bronchial and tracheal secretions improved Medical Problems: (1) CHF exacerbation Status: Acute (2) UTI (urinary tract infection) Status: Acute Plan Plan of Care switch to prednisone taper continue augmentin dismiss today with home health discussed with family at bedside Comment Review of Relevant I have reviewed the following items sarah (where applicable) has been applied. Labs Laboratory Tests Test 11/26/17 03:05 11/27/17 03:15 White Blood Count 9.9 x10^3/uL (4.0-11.0) Red Blood Count 3.43 x10^6/uL (3.50-5.40) Hemoglobin 10.7 g/dL (12.0-15.5) Hematocrit 31.3 % (36.0-47.0) Mean Corpuscular Volume 91 fL (79-100) Mean Corpuscular Hemoglobin 31 pg (25-35) Mean Corpuscular Hemoglobin Concent 34 g/dL (31-37) Red Cell Distribution Width 14.3 % (11.5-14.5) Platelet Count 240 x10^3/uL (140-400) Neutrophils (%) (Auto) 86 % (31-73) Lymphocytes (%) (Auto) 11 % (24-48) Monocytes (%) (Auto) 3 % (0-9) Eosinophils (%) (Auto) 0 % (0-3) Basophils (%) (Auto) 0 % (0-3) Neutrophils # (Auto) 8.5 x10^3uL (1.8-7.7) Lymphocytes # (Auto) 1.0 x10^3/uL (1.0-4.8) Monocytes # (Auto) 0.3 x10^3/uL (0.0-1.1) Eosinophils # (Auto) 0.0 x10^3/uL (0.0-0.7) Basophils # (Auto) 0.0 x10^3/uL (0.0-0.2) Sodium Level 139 mmol/L (136-145) 138 mmol/L (136-145) Potassium Level 5.1 mmol/L (3.5-5.1) 5.0 mmol/L (3.5-5.1) Chloride Level 107 mmol/L (98-107) 106 mmol/L (98-107) Carbon Dioxide Level 27 mmol/L (21-32) 29 mmol/L (21-32) Anion Gap 5 (6-14) 3 (6-14) Blood Urea Nitrogen 34 mg/dL (7-20) 41 mg/dL (7-20) Creatinine 1.2 mg/dL (0.6-1.0) 1.1 mg/dL (0.6-1.0) Estimated GFR (Cockcroft-Gault) 53.3 58.9 Glucose Level 177 mg/dL (70-99) 263 mg/dL (70-99) Calcium Level 9.1 mg/dL (8.5-10.1) 8.7 mg/dL (8.5-10.1) Laboratory Tests Test 11/27/17 03:15 Sodium Level 138 mmol/L (136-145) Potassium Level 5.0 mmol/L (3.5-5.1) Chloride Level 106 mmol/L (98-107) Carbon Dioxide Level 29 mmol/L (21-32) Anion Gap 3 (6-14) Blood Urea Nitrogen 41 mg/dL (7-20) Creatinine 1.1 mg/dL (0.6-1.0) Estimated GFR (Cockcroft-Gault) 58.9 Glucose Level 263 mg/dL (70-99) Calcium Level 8.7 mg/dL (8.5-10.1) Microbiology 11/22/17 Urine Culture - Final, Complete 11/22/17 Urine Culture Result 1 (KIRSTY) - Final, Complete 11/22/17 Antimicrobic Susceptibility - Final, Complete Medications Current Medications Furosemide (Lasix) 40 mg 1X ONCE PO ; Start 11/22/17 at 20:30; Stop 11/22/17 at 20:31; Status DC Furosemide (Lasix) 40 mg 1X ONCE IVP Last administered on 11/22/17at 21:35; Start 11/22/17 at 21:30; Stop 11/22/17 at 21:31; Status DC Fentanyl Citrate (Fentanyl 2ml Vial) 50 mcg PRN Q2HR PRN IV PAIN; Start at 22:30; Stop 11/23/17 at 22:29; Status DC Ceftriaxone Sodium 50 ml @ 100 mls/hr 1X ONCE IV Last administered on at 00:10; Start 11/22/17 at 23:15; Stop 11/22/17 at 23:44; Status DC Acetaminophen (Tylenol) 650 mg PRN Q6HRS PRN PEG MILD PAIN / TEMP; Start at 23:15; Stop 11/22/17 at 23:46; Status DC Aspirin (Children'S Aspirin) 81 mg DAILYWBKFT PO Last administered on at 08:57; Start 11/23/17 at 08:00; Stop 11/23/17 at 11:13; Status DC Atorvastatin Calcium (Lipitor) 40 mg QHS PEG Last administered on 11/26/17 20: 26; Start 11/23/17 at 21:00 Vitamin D (Vitamin D3) 1,000 unit DAILY GT Last administered on 11/27/17 09:50 ; Start 11/23/17 at 09:00 Furosemide (Lasix) 20 mg DAILY PEG Last administered on 11/27/17 09:50; Start 11/23/17 at 09:00 Isosorbide Dinitrate (Isordil) 20 mg TID PEG Last administered on 11/27/17 11: 00; Start 11/23/17 at 09:00 Lansoprazole (Prevacid) 30 mg BIDBFRMEAL FT Last administered on 11/23/17 08: 57; Start 11/23/17 at 07:30; Stop 11/23/17 at 11:13; Status DC Losartan Potassium (Cozaar) 100 mg DAILY PEG Last administered on 11/27/17 09: 49; Start 11/23/17 at 09:00 Acetaminophen (Tylenol) 650 mg PRN Q4HRS PRN PEG MILD PAIN / TEMP Last administered on 11/23/17 20:53; Start 11/22/17 at 23:45; Stop 11/24/17 at 13:55 ; Status DC Hydralazine HCl (Apresoline) 25 mg TID PEG Last administered on 11/27/17 09:49 ; Start 11/23/17 at 09:00 Potassium Chloride (KCl Oral Soln) 20 meq DAILY PEG Last administered on 10:00; Start 11/23/17 at 09:00; Stop 11/26/17 at 15:16; Status DC Aspirin (Children'S Aspirin) 81 mg DAILYWBKFT PEG Last administered on 09:50; Start 11/24/17 at 08:00 Lansoprazole (Prevacid) 30 mg DAILY FT Last administered on 11/27/17 09:50; Start 11/24/17 at 09:00 Acetaminophen (Tylenol) 650 mg PRN Q6HRS PRN PEG MILD PAIN / TEMP Last administered on 11/26/17 06:22; Start 11/23/17 at 11:15 Magnesium Hydroxide (Milk Of Magnesia) 2,400 mg PRN DAILY PRN PEG CONSTIPATION ; Start 11/23/17 at 11:15 Ceftriaxone Sodium 1 gm/ Dextrose 50 ml @ 100 mls/hr Q24H IV ; Start 11/23/17 at 23:15; Status UNV Ceftriaxone Sodium (Rocephin) 1 gm Q24H IVP Last administered on 11/24/17at 12: 13; Start 11/23/17 at 11:30; Stop 11/24/17 at 14:46; Status DC Amlodipine Besylate (Norvasc) 10 mg DAILY PO ; Start 11/23/17 at 18:00; Status Cancel Amlodipine Besylate (Norvasc) 10 mg DAILY PO Last administered on 11/27/17at 09: 50; Start 11/24/17 at 09:00 Albuterol/ Ipratropium (Duoneb) 3 ml RTQID NEB Last administered on 11/27/17at 12:06; Start 11/24/17 at 09:00 Budesonide (Pulmicort) 0.5 mg RTBID NEB Last administered on 11/27/17at 07:21; Start 11/24/17 at 09:00 Methylprednisolone Sodium Succinate (SOLU-Medrol 40MG VIAL) 40 mg Q12HR IV Last administered on 11/27/17at 10:30; Start 11/24/17 at 09:00 Lactobacillus Rhamnosus (Culturelle) 1 cap BID PO Last administered on at 08:14; Start 11/24/17 at 21:00; Stop 11/25/17 at 08:23; Status DC Piperacillin Sod/ Tazobactam Sod (Zosyn Per Pharmacy) 1 each PRN DAILY PRN MC SEE COMMENTS; Start 11/24/17 at 14:45; Stop 11/25/17 at 21:25; Status DC Albuterol Sulfate (Ventolin Neb Soln) 2.5 mg QID NEB ; Start 11/24/17 at 17:00; Status UNV Albuterol Sulfate (Ventolin Neb Soln) 2.5 mg PRN Q2HR PRN NEB DYSPNEA; Start at 15:00 Piperacillin Sod/ Tazobactam Sod 3.375 gm/Sodium Chloride 50 ml @ 100 mls/hr Q6HRS IV Last administered on 11/25/17at 17:50; Start 11/24/17 at 16:00; Stop at 21:49; Status DC Ciprofloxacin (Cipro) 250 mg [id number] PEG Last administered on 11/26/17at 06:22; Start 11/26/17 at 07:00; Stop 11/26/17 at 15:16; Status DC Diphenhydramine HCl (Benadryl) 25 mg PRN Q6HRS PRN IVP ITCHING; Start 11/25/17 at 21:30 Vancomycin HCl 250 ml @ 250 mls/hr 1X ONCE IV ; Start 11/26/17 at 14:45; Stop 11/26/17 at 15:44; Status UNV Vancomycin HCl 1.75 gm/Sodium Chloride 500 ml @ 250 mls/hr 1X ONCE IV ; Start 11/26/17 at 15:30; Stop 11/27/17 at 11:38; Status DC Amoxicillin/ Clavulanate Potassium (Augmentin 400-57mg/5ml Susp) 5 ml Q12HR PEG Last administered on 11/27/17at 09:44; Start 11/26/17 at 21:00 Active Scripts Active Prevacid (Lansoprazole) 30 Mg Tab.rap.dr 30 Mg FT BID Potassium Chloride Oral Liquid (Potassium Chloride) 20 Meq/15 Ml Liquid 20 Meq PEG DAILY Losartan Potassium 50 Mg Tablet 100 Mg PEG DAILY Isosorbide Dinitrate 10 Mg Tablet 20 Mg PEG TID Hydralazine Hcl 25 Mg Tablet 25 Mg PEG TID Furosemide 20 Mg Tablet 20 Mg PEG DAILY Atorvastatin Calcium 40 Mg Tablet 40 Mg PEG QHS Children's Aspirin (Aspirin) 81 Mg Tab.chew 81 Mg PO DAILYWBKFT Acetaminophen 650 Mg/20.3 Ml Solution 650 Mg PEG PRN Q4HRS PRN Reported Vitamin D3 (Cholecalciferol (Vitamin D3)) 1,000 Unit Tablet 1,000 Unit GT DAILY Vitals/I & O Vital Sign - Last 24 Hours 11/26/17 11/26/17 11/26/17 11/26/17 14:14 14:15 15:00 15:02 Temp 97.7 97.7 Pulse 83 83 90 Resp 18 B/P (MAP) 120/76 120/76 129/72 (91) Pulse Ox 96 O2 Delivery 3l Nasal Cannula O2 Flow Rate 1.0 8/11/26/17 11/26/17 11/26/17 19:00 19:20 19:20 20:00 Temp 98.3 98.3 Pulse 83 Resp 18 B/P (MAP) 118/97 (104) Pulse Ox 96 98 98 O2 Delivery 3l Nasal Cannula Nasal Cannula Nasal Cannula O2 Flow Rate 1.0 1.0 1.0 11/26/17 11/26/17 11/26/17 11/27/17 20:23 20:24 23:00 03:00 Temp 99.0 98.0 99.0 98.0 Pulse 90 90 83 84 Resp 18 18 B/P (MAP) 129/72 129/72 124/77 (93) 124/98 (107) Pulse Ox 96 96 O2 Delivery 3l 3l 11/27/17 11/27/17 11/27/17 11/27/17 07:21 07:21 08:00 09:49 Temp 97.4 97.4 Pulse 52 52 Resp 20 B/P (MAP) 129/54 (79) 129/54 Pulse Ox 98 97 O2 Delivery Nasal Cannula Nasal Cannula Nasal Cannula O2 Flow Rate 2.0 1.0 1.0 11/27/17 11/27/17 11/27/17 11/27/17 09:49 09:50 11:00 11:00 Temp 98.5 98.5 Pulse 52 52 58 52 Resp 20 B/P (MAP) 129/54 129/54 122/58 (79) 129/54 Pulse Ox 99 O2 Delivery Nasal Cannula O2 Flow Rate 3.0 11/27/17 12:06 Pulse Ox 98 O2 Delivery Nasal Cannula O2 Flow Rate 1.0 Intake and Output 11/26/17 11/26/17 11/27/17 15:00 23:00 07:00 Intake Total 985 ml 1090 ml 970 ml Output Total 0 ml 630 ml 900 ml Balance 985 ml 460 ml 70 ml IRWIN BELLO MD Nov 27, 2017 13:31
--- NOTE | 2017-11-27 13:47 | PDOC ---
Provider Note Provider Note discharge summary dictated # [id number] IRWIN BELLO MD Nov 27, 2017 13:47
--- NOTE | 2017-11-27 14:03 | DS ---
DATE OF DISCHARGE: 11/27/2017 CONSULTANTS: Dr. oMrales, Dr. Lora Norris, Dr. Dixon. PROCEDURE: Flexible fiberoptic nasopharyngeal laryngoscopy. Findings, she had some inflammation in the right nasal cavity, normal vocal cord mobility, no significant secretions around the larynx, breathing sounds are audible during the procedure, reflecting tracheobronchial secretions. FINAL DIAGNOSES: 1. Acute on chronic systolic congestive heart failure. 2. Cardiomyopathy. 3. Coronary artery disease with previous coronary bypass graft surgery and coronary angioplasty of the circumflex coronary artery in the past. 4. Peripheral arterial disease. 5. 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 6. PEG tube feedings. 7. History of right above-knee amputation. 8. Paroxysmal atrial fibrillation, but not a Coumadin candidate. 9. Diabetes mellitus type 2, treated with diet. 10. Hypertension. 11. Hyperlipidemia. 12. Severe protein-calorie malnutrition. 13. Chronic kidney disease stage 3. 14. Enterococcus urinary tract infection. HOSPITAL COURSE: The patient is a 72-year-old female with history of a cerebrovascular accident late effects with right-sided hemiparesis, oropharyngeal dysphagia and global aphasia, maintaining gastrostomy tube feeding boluses with a history of diabetes mellitus treated with diet, hypertension, hyperlipidemia, coronary artery disease, cardiomyopathy with a previous left ventricular ejection fraction 40-45% with peripheral arterial disease and a previous right below-knee amputation, paroxysmal atrial fibrillation, but not a candidate for Coumadin due to recurrent gross hematuria when she was on in the past, has a chronic Saab catheter, [facility] 11/22/2017 with history of shortness of breath. Chest x-ray showed borderline congestive heart failure. She received Lasix 40 mg IV in the Emergency Room, had pyuria and received 1 gram of IV Rocephin in the Emergency Room and was subsequently admitted to the hospital for further evaluation and treatment. She was seen by Dr. Morales for Pulmonary and Dr. Lora Norris and the patient was seen by Dr. Vazquez for ID, had an enterococcus urinary tract infection was treated with Augmentin. She had a nasopharyngeal laryngoscopy by Dr. Norris, had some tracheal and bronchial secretions causing the audible noises, but no significant abnormality of the larynx and the vocal cords were moving well. The patient was treated with IV Solu-Medrol, nebulizer treatments and she improved. She still had some audible noises in her throat. She tolerated her tube feedings well. She was switched back to furosemide 20 mg through her G-tube. She will be dismissed to home with home health on Jevity 1.5 one can 5 times a day, water 250 mL 5 times a day, elevate the head of bed 45 degrees. She will be on a prednisone taper as her IV Solu-Medrol will be discontinued today, 40 mg of prednisone daily for 2 days, 30 mg every day for 2 days, 20 mg every day for 2 days, 10 mg every day for 2 days and then she will stop the prednisone. Her sugars will be higher on the prednisone, but they normalize when she is off of it. She will be on DuoNeb nebulizer treatments q.i.d., Augmentin 400 mg suspension every 12 hours for 8 days, Tylenol 650 mg every 6 hours p.r.n., aspirin 81 mg every day, atorvastatin 40 mg at bedtime, vitamin D 1000 units every day, furosemide 20 mg every day, DuoNeb nebulized treatments q.i.d., isosorbide dinitrate 20 mg t.i.d., Prevacid 30 mg every day, losartan 100 mg every day, amlodipine 10 mg every day, hydralazine 25 mg t.i.d. We will check if she needs to be on oxygen, so we will check a room air oxygen saturation. She is currently on 1 liter nasal cannula, oxygen saturations have been 97-98%. IRWIN BELLO MD DR: ARMIDA/herb JOB#: [id number] / [id number]
[2017-11-27 15:00] VITALS: BP 117/62
[2017-11-27 16:09] VITALS: BP 117/62
--- NOTE | 2017-11-27 19:03 | CONS ---
DATE OF CONSULTATION: 11/27/2017 REFERRING PHYSICIAN: Dr. Morales. REASON FOR CONSULTATION: Enterococcus UTI. HISTORY OF PRESENT ILLNESS: A 72-year-old female with history of CVA, chronic indwelling Saab, anemia, coronary artery disease, CHF, constipation, diabetes mellitus 2, hyperlipidemia, coronary artery disease, hypertension, [place], right-sided deficits due to CVA, nonverbal, right AKA, PEG tube placement, was admitted through ER on 11/22/2017 for increased work of breathing. The patient was at home when her daughter noticed that she had trouble with breathing. The patient is nonverbal. History obtained from the chart and from staff. The patient was admitted for further evaluation and treatment. She was found to have Enterococcus UTI amp sensitive patient was started on Augmentin. Also, IV vancomycin was ordered. The patient had been on ciprofloxacin, which was changed to Augmentin. The patient today is doing well. She had her Saab changed this admission. There was leakage, so it was changed yesterday per RN again. No increased shortness of breath, nausea, vomiting, cough, diarrhea. There is also concern about chronic aspiration, but the patient has remained afebrile. White count has remained normal. Per staff, there was also discussion with her daughter about SPC placement. The patient is awaiting the same by Urology as outpatient, but there was some transportation issues and daughter is aware of the same. The patient was found to have acute on chronic diastolic heart failure. She was given oral diuretics and now is compensated. PAST MEDICAL HISTORY: Compensated diastolic heart failure, coronary artery disease status post catheterization, aspiration pneumonia from dysphagia, CVA with right-sided hemiparesis and aphasia, chronic indwelling Saab, hypertension, hyperlipidemia, anemia, diabetes, status post CABG, right AKA, PEG tube placement. CURRENT MEDICATION: Augmentin, IV vancomycin on hold. FAMILY HISTORY: As per HPI. SOCIAL HISTORY: As per HPI. REVIEW OF SYSTEMS: Unable to obtain due to aphasia. PHYSICAL EXAMINATION: VITAL SIGNS: Temperature 97.4, pulse 52, respiratory rate 20, blood pressure 129/50, oxygen saturation 97% on 1 liter nasal cannula. HEENT: Anicteric. Normocephalic, atraumatic. Oral mucosa moist. No thrush. NECK: Supple. LUNGS: Clear except for a few scattered rhonchi. HEART: S1, S2. ABDOMEN: Soft, nontender, nondistended. PEG tube site looks okay. EXTREMITIES: Right AKA . No edema on the left side. NEUROLOGIC: Awake, does not follow commands. Right-sided hemiparesis. DERMATOLOGIC: No generalized rash. LABORATORY DATA: Reviewed. WBC within normal limits. Creatinine 1.1, was elevated with prior hemoglobin 10.7, hematocrit 31.3, platelets 240. UA shows 11-20 wbc's, large leukocyte esterase. Urine culture Enterococcus faecalis amp sensitive. IMPRESSION: 1. Enterococcus faecalis ampicillin sensitive urinary tract infection in patient with chronic indwelling Saab, awaiting SPC placement as outpatient. 2. Cardiomyopathy. 3. Coronary artery disease, status post coronary artery bypass graft. 4. Peripheral arterial disease. 5. Cerebrovascular accident with expressive aphasia, oropharyngeal dysphagia and right-sided hemiparesis. 6. PEG tube feedings. 7. History of right above-knee amputation. 8. Paroxysmal atrial fibrillation. 9. Diabetes mellitus 2. 10. Hypertension/hyperlipidemia. 11. Severe protein-calorie malnutrition. 12. Chronic kidney disease. RECOMMENDATIONS: 1. Continue Augmentin for a total of 10 days. 2. Saab has been changed this admission. 3. Agree with consideration for SPC to prevent recurrent urinary tract infection. 4. Continue supportive care. Thank you for allowing us to participate in this patient's care. If you have any questions, do not hesitate to contact. BONNIE APARICIO MD DR: KHANG/herb JOB#: [id number] / [id number]
== END 2017-11-27 16:40 | disposition home health service (06) | DRG 177 ==
LOC: ER 19:34 → 5 SOUTH 22:36
PROVIDERS: ADMIT Internal Medicine; ATTEND Internal Medicine
DX: J69.0 Pneumonitis due to inhalation of food and vomit (principal); E43 Unspecified severe protein-calorie malnutrition; I50.23 Acute on chronic systolic (congestive) heart failure; N39.0 Urinary tract infection, site not specified; I69.351 Hemiplegia and hemiparesis following cerebral infarction affecting right dominant side; I13.0 Hypertensive heart and chronic kidney disease with heart failure and stage 1 through stage 4 chronic kidney disease, or unspecified chronic kidney disease; I42.9 Cardiomyopathy, unspecified; K92.2 Gastrointestinal hemorrhage, unspecified; I69.320 Aphasia following cerebral infarction; I25.10 Atherosclerotic heart disease of native coronary artery without angina pectoris; N18.3 Chronic kidney disease, stage 3 (moderate); E78.00 Pure hypercholesterolemia, unspecified; E11.22 Type 2 diabetes mellitus with diabetic chronic kidney disease; E11.51 Type 2 diabetes mellitus with diabetic peripheral angiopathy without gangrene; K59.00 Constipation, unspecified; D64.9 Anemia, unspecified; Z95.1 Presence of aortocoronary bypass graft; Z89.611 Acquired absence of right leg above knee; Z93.1 Gastrostomy status; Z89.511 Acquired absence of right leg below knee; R13.12 Dysphagia, oropharyngeal phase; I48.0 Paroxysmal atrial fibrillation; E78.5 Hyperlipidemia, unspecified; Z87.11 Personal history of peptic ulcer disease; Z98.61 Coronary angioplasty status; B95.2 Enterococcus as the cause of diseases classified elsewhere; Z90.49 Acquired absence of other specified parts of digestive tract; Z68.30 Body mass index [BMI] 30.0-30.9, adult
CPT/HCPCS: 36415; 71045; 80048; 80053; 80061; 81001; 82553; 83036; 83880; 84484; 85025; 87086; 87186; 93005; 93306; 94640; 94760; 96374; J0690; J0696; J1940; J2543; J2920; J7620; J7626; 99285-25

== ENCOUNTER 2018-02-06 10:49 | Emergency (ER) | payer OTHER ==
[~2018-02-06] VITALS: Ht 157.5 cm; Wt 75.3 kg
[~2018-02-06 10:49] MED LIST changes: +ACET650S PEG; -ACET650S19 PEG
[2018-02-06] MEDS ORDERED: IOHEXOL 240 MG/ML 50ML VIAL. ONE (12:22)
[2018-02-06] MEDS ORDERED: IOHEXOL 240 MG/ML 50ML VIAL. IJ ONE (13:30)
[2018-02-06] MEDS ORDERED: CONTRAST GIVEN. MC PRN (13:30)
--- NOTE | 2018-02-06 14:25 | RAD ---
Replacement of nonfunctioning gastrostomy tube 02/06/2018 Indication: Nonfunctioning gastrostomy tube, chronic Discussion: The risks and benefits of the procedure were discussed the patient's volunteer patient representative. Informed consent was obtained. A timeout procedure was performed. Anterior abdomen including previous gastrostomy were prepped and draped using sterile barrier technique. Fluoroscopic evaluation including administration of iodinated contrast demonstrates the tube to be well-positioned. A guidewire was advanced into the stomach. The catheter was removed with traction replaced with a new 18 [place] gastrostomy tube. 15 cc of sterile water was instilled into the retention balloon. The catheter was secured with a variable stoma and a sterile dressing was applied. The catheter was flushed and its position confirmed with contrast. Fluoroscopy time: 1.2 MINUTES dose area product: 11 Gycm2 Impression: Fluoroscopically assisted replacement of the percutaneous gastrostomy tube.
[2018-02-06 14:50] VITALS: BP 154/69
--- NOTE | 2018-02-06 15:41 | PHYS DOC ---
Past Medical History Past Medical History: Anemia, CAD, CHF, Constipation, CVA, Diabetes-Type II, High Cholesterol, Heart Disease, Hypertension, DC, Additional Disease, Other Additional Past Medical Histor: R sided deficits d/t CVA, non-verbal Past Surgical History: Coronary Bypass Surgery, Other Additional Past Surgical Histo: leg vein, R AKA, PEG tube Alcohol Use: None Drug Use: None Adult General Chief Complaint Chief Complaint: GI PROBLEM HPI HPI HX PROVIDED BY DAUGHTER TUBE IS ALL KINKED UP AND DOESTN FLOW WELL. IT HASNT BEEN CHANGED IN MONTHS Review of Systems Review of Systems UNABLE DUE TO APHASIA Current Medications Current Medications Current Medications Medications (Trade) Dose Ordered Sig/Courtney Start Time Stop Time Status Last Admin Dose Admin Info (CONTRAST GIVEN -- Rx MONITORING) 1 each PRN DAILY PRN 02/06/18 13:30 02/06/18 15:05 DC Iohexol (Omnipaque 240 Mg/ml) 50 ml 1X ONCE 02/06/18 13:30 02/06/18 13:31 DC 02/06/18 13:35 40 ML Allergies Allergies Allergies Coded Allergies Type Severity Reaction Last Updated Verified No Known Medication Allergies Allergy Unknown 07/25/17 Yes Physical Exam Physical Exam Constitutional: Well developed, well nourished, no acute distress, non-toxic appearance. [] HENT: Normocephalic, atraumatic, bilateral external ears normal, oropharynx moist, no oral exudates, nose normal. [] Eyes: PERRLA, EOMI, conjunctiva normal, no discharge. [] Pulmonary: Normal respiratory effort no increased work of breathing no obvious chest wall trauma Abdomen: Bowel sounds normal, soft, no tenderness, no masses, no pulsatile masses. [] GTUBE IN PLACE NO SIGNS OF INFECTION. Skin: Warm, dry, no erythema, no rash. [] Back: No tenderness, no CVA tenderness. [] Extremities: No tenderness, no cyanosis, no clubbing, ROM intact, no edema. [] Neurologic: COPNTRACTURES APHASIA AT BASELINE. [] Psychologic: Current Patient Data Vital Signs Vital Signs Date Time Temp Pulse Resp B/P (MAP) Pulse Ox O2 Delivery O2 Flow Rate FiO2 02/06/18 14:50 66 18 154/69 (97) 96 Room Air 02/06/18 10:50 97.8 97.8 EKG EKG [] Radiology/Procedures Radiology/Procedures [] Course & Med Decision Making Course & Med Decision Making Pertinent Labs and Imaging studies reviewed. (See chart for details) []G TUBE WAS REPLACED BY ir PT IS DOING FINE. Dragon Disclaimer Dragon Disclaimer This electronic medical record was generated, in whole or in part, using a voice recognition dictation system. Departure Departure Impression: Primary Impression: Malfunction of gastrostomy tube Disposition: HOME, SELF-CARE Condition: STABLE Referrals: IRWIN BELLO MD (PCP) Patient Instructions: Gastric Tube Replacement ADELAIDE PEREZ MD Feb 06, 2018 15:41
== END 2018-02-06 15:00 | disposition home or self-care (01) ==
LOC: ER 10:49
DX: K94.23 Gastrostomy malfunction (principal); Y83.8 Other surgical procedures as the cause of abnormal reaction of the patient, or of later complication, without mention of misadventure at the time of the procedure; Y92.89 Other specified places as the place of occurrence of the external cause; I11.0 Hypertensive heart disease with heart failure; I50.9 Heart failure, unspecified; E78.00 Pure hypercholesterolemia, unspecified; I25.10 Atherosclerotic heart disease of native coronary artery without angina pectoris; Z86.73 Personal history of transient ischemic attack (TIA), and cerebral infarction without residual deficits; E11.9 Type 2 diabetes mellitus without complications; I25.2 Old myocardial infarction; Z95.5 Presence of coronary angioplasty implant and graft
CPT/HCPCS: 49450; 99284; C1769; Q9966

== ENCOUNTER 2018-04-14 11:23 | Emergency (ER) | payer OTHER ==
[~2018-04-14] VITALS: Ht 167.6 cm; Wt 75.3 kg
[~2018-04-14 11:23] MED LIST changes: -AMLO10TA6 PEG; +AMLO10TA8 PEG; +AMLO5TAB10 PEG; -AMLO5TAB7 PEG; +CARV6.2511 PO; -CARV6.252 PO; +LOSA-73 PEG; +LOSA-73 PO; +LOSA100T14 PO; -LOSA100T7 PO; -LOSA50TA2 PO; -LOSA50TA7 PEG; -PANT40TA5 PO; +PANT40TA77 PO; +POTA20LI2 PEG; -POTA20LI27 PEG
[2018-04-14] MEDS ORDERED: IV NORMAL SALINE 1000ML BAG 1,000 ML IV ONE (11:45)
[2018-04-14 13:08] LABS: BASO # 0.1 x10^3/uL (0.0-0.2); BASO % 1 % (0-3); EOS # 0.3 x10^3/uL (0.0-0.7); EOS % 4 % (0-3); HEMATOCRIT 36.5 % (36.0-47.0); HEMOGLOBIN 12.7 g/dL (12.0-15.5); LYMPH # 1.9 x10^3/uL (1.0-4.8); LYMPH % 26 % (24-48); MEAN CORPUSCULAR HEMOGLOBIN 32 pg (25-35); MEAN CORPUSCULAR HGB CONC 35 g/dL (31-37); MEAN CORPUSCULAR VOLUME 91 fL (79-100); MONO # 0.6 x10^3/uL (0.0-1.1); MONO % 8 % (0-9); NEUT # 4.4 x10^3uL (1.8-7.7); NEUT % 60 % (31-73); PLATELET COUNT 191 x10^3/uL (140-400); RED BLOOD COUNT 4.03 x10^6/uL (3.50-5.40); RED CELL DISTRIBUTION WIDTH 14.6 % (11.5-14.5); WHITE BLOOD COUNT 7.2 x10^3/uL (4.0-11.0)
[2018-04-14 13:09] LABS: BILIRUBIN,URINE NEGATIVE (NEG); CLARITY,URINE CLEAR; COLOR,URINE YELLOW; NITRITE,URINE NEGATIVE (NEG); PH,URINE 7.5; PROTEIN,URINE 100 mg/dL (NEG-TRACE)
[2018-04-14 13:15] LABS: BACTERIA,URINE MODERATE /HPF (0-FEW)
[2018-04-14 13:16] LABS: RBC,URINE 20-40 /HPF (0-2)
[2018-04-14 13:23] LABS: CALCIUM 9.3 mg/dL (8.5-10.1); CREATININE 0.8 mg/dL (0.6-1.0); GFR 85.1; POTASSIUM 3.5 mmol/L (3.5-5.1)
[2018-04-14 13:25] LABS: ALBUMIN 2.4 g/dL (3.4-5.0); ALBUMIN/GLOBULIN RATIO 0.5 (1.0-1.7); TOTAL BILIRUBIN 0.7 mg/dL (0.2-1.0); TOTAL PROTEIN 7.1 g/dL (6.4-8.2)
[2018-04-14] MEDS ORDERED: cefTRIAXone IV Push 1 GM VIAL. IVP ONE (13:30)
[2018-04-14] MEDS ORDERED: AMOX875T PEG (13:59)
--- NOTE | 2018-04-14 14:06 | PHYS DOC ---
Past Medical History Past Medical History: Anemia, CAD, CHF, Constipation, CVA, Diabetes-Type II, High Cholesterol, Heart Disease, Hypertension, [place], Additional Disease, Other Additional Past Medical Histor: R sided deficits d/t CVA, non-verbal Past Surgical History: Coronary Bypass Surgery, Other Additional Past Surgical Histo: leg vein, R AKA, PEG tube Alcohol Use: None Drug Use: None Adult General Chief Complaint Chief Complaint: URINE CATHETER PROBLEM HPI HPI Patient is a 72 year old age who p/w cc of change in color of urine. This is been going on for the last couple of days it comes and goes and it was clear last night and then it was dark this morning so the daughter brought the person to the emergency room for evaluation via ambulance. No fever patient seems to be wincing sound when she is being moved around otherwise no other symptoms no vomiting no fever has had issues with urinary tract infections in the past daughter is asking whether or not a suprapubic catheter might be more helpful. Review of Systems Review of Systems morales by nonverbal status. Current Medications Current Medications Current Medications Medications (Trade) Dose Ordered Sig/Courtney Start Time Stop Time Status Last Admin Dose Admin Ceftriaxone Sodium (Rocephin) 1 gm 1X ONCE 04/14/18 13:30 04/14/18 13:34 DC 04/14/18 13:40 1 GM Sodium Chloride 1,000 ml @ 1,000 mls/hr 1X ONCE 04/14/18 11:45 04/14/18 12:53 DC 04/14/18 12:32 1,000 MLS/HR Allergies Allergies Allergies Coded Allergies Type Severity Reaction Last Updated Verified No Known Medication Allergies Allergy Unknown 07/25/17 Yes Physical Exam Physical Exam Constitutional: Well developed, well nourished, mild distress. HENT: Normocephalic, atraumatic, bilateral external ears normal, oropharynx moist, no oral exudates, nose normal. [] Eyes: PERRLA, EOMI, conjunctiva normal, no discharge. [] Neck: Normal range of motion, no tenderness, supple, no stridor. [] Cardiovascular:Heart rate regular rhythm, no murmur [] Lungs & Thorax: Bilateral breath sounds clear to auscultation [] Abdomen: Bowel sounds normal, soft, no tenderness, no masses, no pulsatile masses. [] gtbue in place gu: vásquez dark urine. Skin: Warm, dry, no erythema, no rash. [] Back: No tenderness, no CVA tenderness. [] Extremities: No tenderness, no cyanosis, no clubbing, ROM intact, no edema. [] Neurologic: baseline nonverbal and hemiparesis Psychologic: unable to assess. Current Patient Data Vital Signs Vital Signs Date Time Temp Pulse Resp B/P (MAP) Pulse Ox O2 Delivery O2 Flow Rate FiO2 04/14/18 13:30 54 18 136/63 (87) 97 Room Air 04/14/18 11:32 98.9 98.9 Lab Values Laboratory Tests Test 04/14/18 12:55 White Blood Count 7.2 x10^3/uL (4.0-11.0) Red Blood Count 4.03 x10^6/uL (3.50-5.40) Hemoglobin 12.7 g/dL (12.0-15.5) Hematocrit 36.5 % (36.0-47.0) Mean Corpuscular Volume 91 fL (79-100) Mean Corpuscular Hemoglobin 32 pg (25-35) Mean Corpuscular Hemoglobin Concent 35 g/dL (31-37) Red Cell Distribution Width 14.6 % (11.5-14.5) H Platelet Count 191 x10^3/uL (140-400) Neutrophils (%) (Auto) 60 % (31-73) Lymphocytes (%) (Auto) 26 % (24-48) Monocytes (%) (Auto) 8 % (0-9) Eosinophils (%) (Auto) 4 % (0-3) H Basophils (%) (Auto) 1 % (0-3) Neutrophils # (Auto) 4.4 x10^3uL (1.8-7.7) Lymphocytes # (Auto) 1.9 x10^3/uL (1.0-4.8) Monocytes # (Auto) 0.6 x10^3/uL (0.0-1.1) Eosinophils # (Auto) 0.3 x10^3/uL (0.0-0.7) Basophils # (Auto) 0.1 x10^3/uL (0.0-0.2) Urine Collection Type U cath Urine Color Yellow Urine Clarity Clear Urine pH 7.5 Urine Specific [place] 1.015 Urine Protein 100 mg/dL (NEG-TRACE) Urine Glucose (UA) Negative mg/dL (NEG) Urine Ketones (Stick) Negative mg/dL (NEG) Urine Blood Moderate (NEG) Urine Nitrite Negative (NEG) Urine Bilirubin Negative (NEG) Urine Urobilinogen Dipstick 1.0 mg/dL (0.2 mg/dL) Urine Leukocyte Esterase Moderate (NEG) Urine RBC 20-40 /HPF (0-2) Urine WBC 11-20 /HPF (0-4) Urine Bacteria Moderate /HPF (0-FEW) Sodium Level 140 mmol/L (136-145) Potassium Level 3.5 mmol/L (3.5-5.1) Chloride Level 104 mmol/L (98-107) Carbon Dioxide Level 30 mmol/L (21-32) Anion Gap 6 (6-14) Blood Urea Nitrogen 19 mg/dL (7-20) Creatinine 0.8 mg/dL (0.6-1.0) Estimated GFR (Cockcroft-Gault) 85.1 BUN/Creatinine Ratio 24 (6-20) H Glucose Level 143 mg/dL (70-99) H Calcium Level 9.3 mg/dL (8.5-10.1) Total Bilirubin 0.7 mg/dL (0.2-1.0) Aspartate Amino Transferase (AST) 28 U/L (15-37) Alanine Aminotransferase (ALT) 39 U/L (14-59) Alkaline Phosphatase 159 U/L (46-116) H Total Protein 7.1 g/dL (6.4-8.2) Albumin 2.4 g/dL (3.4-5.0) L Albumin/Globulin Ratio 0.5 (1.0-1.7) L Laboratory Tests 04/14/18 12:55 Laboratory Tests 04/14/18 12:55 EKG EKG [] Radiology/Procedures Radiology/Procedures [] Course & Med Decision Making Course & Med Decision Making Pertinent Labs and Imaging studies reviewed. (See chart for details) 72 yo f history of stroke bedbound PEG dependent Vásquez in place presenting with change in color of urine. Urinalysis suggest possible UTI the Vásquez was replaced and clear urine came out without any difficulty at all like counselor looking just fine urinalysis could this be a colonization but we'll start with some amoxicillin based on prior culture showing enterococcus that was susceptible to penicillin. RECOMMedned f/u pmd to follow up cultures will give number to urolgoy to discuss alf uti prevention strategies Renny Disclaimer Renny Disclaimer This electronic medical record was generated, in whole or in part, using a voice recognition dictation system. Departure Departure Impression: Primary Impression: UTI (urinary tract infection) Disposition: 01 HOME, SELF-CARE Condition: STABLE Referrals: IRWIN BELLO MD (PCP) Patient Instructions: Urinary Tract Infection Scripts Amoxicillin (AMOXICILLIN) 875 Mg Tablet 1 TAB PEG BID, #14 TAB Prov: ADELAIDE PEREZ MD 04/14/18 ADELAIDE PEREZ MD Apr 14, 2018 14:06
[2018-04-14 15:30] VITALS: BP 149/64
[2018-08-28] MEDS ORDERED: LANS30TA6 PEG (10:43)
[2018-08-28] MEDS ORDERED: LOSA-73 PEG (10:43)
[2018-08-28] MEDS ORDERED: AMLO10TA8 PEG (10:43)
[2018-08-28] MEDS ORDERED: AZIT200S4 PEG (10:43)
[2018-08-28] MEDS ORDERED: CEPH250S30 PEG (10:43)
== END 2018-04-14 15:50 | disposition home or self-care (01) ==
LOC: ER 11:23
DX: N39.0 Urinary tract infection, site not specified (principal); I11.0 Hypertensive heart disease with heart failure; I50.9 Heart failure, unspecified; E11.9 Type 2 diabetes mellitus without complications; I25.10 Atherosclerotic heart disease of native coronary artery without angina pectoris; E78.00 Pure hypercholesterolemia, unspecified; I25.2 Old myocardial infarction; Z86.73 Personal history of transient ischemic attack (TIA), and cerebral infarction without residual deficits; Z95.5 Presence of coronary angioplasty implant and graft
CPT/HCPCS: 36415; 51702; 80053; 81001; 85025; 87086; 96374; 99284; J0696; J7030

== ENCOUNTER 2018-06-28 11:50 | Emergency (ER) | payer OTHER ==
[~2018-06-28] VITALS: Ht 157.5 cm; Wt 75.3 kg
[~2018-06-28 11:50] MED LIST changes: +AMOX875T PEG; +PANT40TA5 PO; -PANT40TA77 PO; -POTA20LI2 PEG; +POTA20LI27 PEG
[2018-06-28] MEDS ORDERED: cefTRIAXone IV Push 1 GM VIAL. IVP ONE (13:15)
--- NOTE | 2018-06-28 13:21 | PHYS DOC ---
Past Medical History Past Medical History: Anemia, CAD, CHF, Constipation, CVA, Diabetes-Type II, High Cholesterol, Heart Disease, Hypertension, [place], Additional Disease, Other Additional Past Medical Histor: R sided deficits d/t CVA, non-verbal Past Surgical History: Coronary Bypass Surgery, Other Additional Past Surgical Histo: leg vein, R AKA, PEG tube Alcohol Use: None Drug Use: None Adult General Chief Complaint Chief Complaint: BLOOD IN URINE HPI HPI Patient is a 72-year-old female, who is bedbound at home, secondary to her prior ischemic stroke, who has a Saab catheter and feeding tube in place. The patient's daughter states that for the past 3-4 days, the patient has had foul- smelling urine, and 3 days ago had some blood in her urine which resolved yesterday but returned today. The patient does not appear to complain of any pain, although the patient's daughter states she ran a low-grade fever yesterday. The patient's mental status has been at her baseline. She has not had any increased lethargy, or vomiting. She has a Saab catheter in place, which is due to be changed next week, was last changed about a month ago. There are no alleviating or exacerbating factors to the patient's symptoms. Other than an aspirin, she does not take any anticoagulants. Review of Systems Review of Systems Constitutional: Denies mental status changes, lethargy, r chills [] Eyes: Denies change in visual acuity, redness, or eye pain [] HENT: Denies nasal congestion or sore throat [] Respiratory: Denies cough or shortness of breath [] GI: Denies abdominal pain, nausea, vomiting, bloody stools or diarrhea [] : Denies dysuria or hematuria [] Musculoskeletal: Denies back pain or joint pain [] Integument: Denies rash or skin lesions [] Neurologic: Denies headache, new focal weakness or sensory changes [] Current Medications Current Medications Current Medications Medications (Trade) Dose Ordered Sig/Courtney Start Time Stop Time Status Last Admin Dose Admin Ceftriaxone Sodium (Rocephin) 1 gm 1X ONCE 06/28/18 13:15 06/28/18 13:20 DC 06/28/18 14:33 1 GM Allergies Allergies Allergies Coded Allergies Type Severity Reaction Last Updated Verified No Known Medication Allergies Allergy Unknown 07/25/17 Yes Physical Exam Physical Exam PHYSICAL EXAM: CONSTITUTIONAL: Well developed, well nourished HEAD: normocephalic, atraumatic EENT: PERRL, EOMI. Conjunctivae normal color, sclerae non-icteric; moist mucous membranes. NECK: Supple, non-tender; no meningismus. LUNGS: Lungs CTA, breathing even and unlabored. Normal air movement. HEART: Regular rate and rhythm, no murmur CHEST: No deformity; non-tender ABDOMEN: The abdomen is soft, and non-tender, no masses or bruits. There is a feeding tube in place. EXTREM: Normal ROM; no deformity, no calf tenderness. Normal pulses palpable in all extremities. There is no pedal edema. SKIN: No rash; no diaphoresis NEURO: Alert; the patient will track with her eyes, and make eye contact, but is nonverbal. There is right hemiparesis. There is weakness of the muscles of left upper and lower extremities well. BACK: No CVA TTP. GENITOURINARY: A Saab catheter is in place. There is bloody urine with some sediment in the drainage tube. Current Patient Data Vital Signs Vital Signs Date Time Temp Pulse Resp B/P (MAP) Pulse Ox O2 Delivery O2 Flow Rate FiO2 06/28/18 14:41 62 16 156/75 (102) 98 Room Air 06/28/18 12:23 98.4 98.4 Lab Values Laboratory Tests Test 06/28/18 13:50 06/28/18 14:30 06/28/18 15:00 Urine Collection Type Unknown Urine Color Red Urine Clarity Cloudy Urine pH 8.5 Urine Specific [place] 1.015 Urine Protein 100 mg/dL (NEG-TRACE) Urine Glucose (UA) Negative mg/dL (NEG) Urine Ketones (Stick) Negative mg/dL (NEG) Urine Blood Large (NEG) Urine Nitrite Negative (NEG) Urine Bilirubin Negative (NEG) Urine Urobilinogen Dipstick 1.0 mg/dL (0.2 mg/dL) Urine Leukocyte Esterase Large (NEG) Urine RBC Tntc /HPF (0-2) Urine WBC 11-20 /HPF (0-4) Urine Bacteria Moderate /HPF (0-FEW) Urine Mucus Mod /LPF White Blood Count 9.5 x10^3/uL (4.0-11.0) Red Blood Count 4.31 x10^6/uL (3.50-5.40) Hemoglobin 13.3 g/dL (12.0-15.5) Hematocrit 39.5 % (36.0-47.0) Mean Corpuscular Volume 92 fL (79-100) Mean Corpuscular Hemoglobin 31 pg (25-35) Mean Corpuscular Hemoglobin Concent 34 g/dL (31-37) Red Cell Distribution Width 14.1 % (11.5-14.5) Platelet Count 236 x10^3/uL (140-400) Neutrophils (%) (Auto) 64 % (31-73) Lymphocytes (%) (Auto) 24 % (24-48) Monocytes (%) (Auto) 6 % (0-9) Eosinophils (%) (Auto) 5 % (0-3) H Basophils (%) (Auto) 1 % (0-3) Neutrophils # (Auto) 6.1 x10^3uL (1.8-7.7) Lymphocytes # (Auto) 2.3 x10^3/uL (1.0-4.8) Monocytes # (Auto) 0.6 x10^3/uL (0.0-1.1) Eosinophils # (Auto) 0.5 x10^3/uL (0.0-0.7) Basophils # (Auto) 0.1 x10^3/uL (0.0-0.2) Sodium Level 140 mmol/L (136-145) Potassium Level 4.5 mmol/L (3.5-5.1) Chloride Level 104 mmol/L (98-107) Carbon Dioxide Level 28 mmol/L (21-32) Anion Gap 8 (6-14) Blood Urea Nitrogen 26 mg/dL (7-20) H Creatinine 0.5 mg/dL (0.6-1.0) L Estimated GFR (Cockcroft-Gault) 146.3 Glucose Level 112 mg/dL (70-99) H Calcium Level 8.8 mg/dL (8.5-10.1) Laboratory Tests 06/28/18 14:30 Laboratory Tests 06/28/18 15:00 EKG EKG [] Radiology/Procedures Radiology/Procedures [] Course & Med Decision Making Course & Med Decision Making Pertinent Labs and Imaging studies reviewed. (See chart for details) [4:00 PM: The patient's condition remains stable.] I discussed test results with the patient's daughter, the need for close outpatient follow-up with urology, and return precautions. The patient's Saab catheter has been changed. Dragon Disclaimer Dragon Disclaimer This electronic medical record was generated, in whole or in part, using a voice recognition dictation system. Departure Departure Impression: Primary Impression: UTI (urinary tract infection) Disposition: HOME, SELF-CARE Condition: STABLE Referrals: IRWIN BELLO MD (PCP) YUSEF HILL MD Patient Instructions: Hematuria, Adult, Urinary Tract Infection Scripts Sulfamethoxazole/Trimethoprim (BACTRIM DS TABLET) 1 Each Tablet 1 TAB PO BID, #14 TAB Prov: JUNAID CELIS MD 06/28/18 JUNAID CELIS MD Jun 28, 2018 13:21
[2018-06-28 14:14] LABS: BILIRUBIN,URINE NEGATIVE (NEG); CLARITY,URINE CLOUDY; COLOR,URINE RED; NITRITE,URINE NEGATIVE (NEG); PH,URINE 8.5; PROTEIN,URINE 100 mg/dL (NEG-TRACE)
[2018-06-28 14:26] LABS: RBC,URINE TNTC /HPF (0-2)
[2018-06-28 14:29] LABS: BACTERIA,URINE MODERATE /HPF (0-FEW)
[2018-06-28 14:37] LABS: BASO # 0.1 x10^3/uL (0.0-0.2); BASO % 1 % (0-3); EOS # 0.5 x10^3/uL (0.0-0.7); EOS % 5 % (0-3); HEMATOCRIT 39.5 % (36.0-47.0); HEMOGLOBIN 13.3 g/dL (12.0-15.5); LYMPH # 2.3 x10^3/uL (1.0-4.8); LYMPH % 24 % (24-48); MEAN CORPUSCULAR HEMOGLOBIN 31 pg (25-35); MEAN CORPUSCULAR HGB CONC 34 g/dL (31-37); MEAN CORPUSCULAR VOLUME 92 fL (79-100); MONO # 0.6 x10^3/uL (0.0-1.1); MONO % 6 % (0-9); NEUT # 6.1 x10^3uL (1.8-7.7); NEUT % 64 % (31-73); PLATELET COUNT 236 x10^3/uL (140-400); RED BLOOD COUNT 4.31 x10^6/uL (3.50-5.40); RED CELL DISTRIBUTION WIDTH 14.1 % (11.5-14.5); WHITE BLOOD COUNT 9.5 x10^3/uL (4.0-11.0)
[2018-06-28 15:18] LABS: CALCIUM 8.8 mg/dL (8.5-10.1); CREATININE 0.5 mg/dL (0.6-1.0); GFR 146.3; POTASSIUM 4.5 mmol/L (3.5-5.1)
[2018-06-28] MEDS ORDERED: SULF1TAB24 PO (16:03)
[2018-06-28 16:11] VITALS: BP 151/78
[2018-08-28] MEDS ORDERED: CEPH250S30 PEG (10:43)
[2018-08-28] MEDS ORDERED: LANS30TA6 PEG (10:43)
[2018-08-28] MEDS ORDERED: LOSA-73 PEG (10:43)
[2018-08-28] MEDS ORDERED: AZIT200S4 PEG (10:43)
[2018-08-28] MEDS ORDERED: AMLO10TA8 PEG (10:43)
== END 2018-06-28 17:10 | disposition home or self-care (01) ==
LOC: ER 11:50
DX: N39.0 Urinary tract infection, site not specified (principal); I11.0 Hypertensive heart disease with heart failure; I50.9 Heart failure, unspecified; E78.00 Pure hypercholesterolemia, unspecified; E11.9 Type 2 diabetes mellitus without complications; Z86.73 Personal history of transient ischemic attack (TIA), and cerebral infarction without residual deficits; I25.2 Old myocardial infarction; I25.10 Atherosclerotic heart disease of native coronary artery without angina pectoris; Z95.5 Presence of coronary angioplasty implant and graft
CPT/HCPCS: 36415; 51702; 80048; 81001; 85025; 87086; 96374; 99284; J0696

== ENCOUNTER 2018-08-27 08:09 | Inpatient (IN) | payer OTHER ==
[~2018-08-27] VITALS: Ht 165.1 cm; Wt 81.6 kg
[~2018-08-27 08:09] MED LIST changes: +SULF1TAB24 PO
--- NOTE | 2018-08-27 08:20 | PHYS DOC ---
Past Medical History Past Medical History: Anemia, CAD, CHF, Constipation, CVA, Diabetes-Type II, High Cholesterol, Heart Disease, Hypertension, [place], Additional Disease, Other Additional Past Medical Histor: R sided deficits d/t CVA, non-verbal Past Surgical History: Coronary Bypass Surgery, Other Additional Past Surgical Histo: leg vein, R AKA, PEG tube Alcohol Use: None Drug Use: None Adult General Chief Complaint Chief Complaint: GTUBE REPLACEMENT/MALFUNCTION HPI HPI Patient is a 72 year old female with a history of hypertension, CVA, right- sided paralysis, right below the knee amputation, aphasic, who presents to the ED today for PEG tube replacement. Patient's daughter is speaking on her behalf, she states the PEG tube has been in for 3 weeks, it was due to be replaced next week but it's leaking on the side. Review of Systems Review of Systems Constitutional: Denies fever or chills [] Eyes: Denies change in visual acuity, redness, or eye pain [] HENT: Denies nasal congestion or sore throat [] Respiratory: Family also reports patient has had a cough. Denies Shortness of breath [] Cardiovascular: No additional information not addressed in HPI [] GI: PEG tube replacement Denies abdominal pain, nausea, vomiting, bloody stools or diarrhea [] : Denies dysuria or hematuria [] Musculoskeletal: Denies back pain or joint pain [] Integument: Denies rash or skin lesions [] Neurologic: Denies headache, focal weakness or sensory changes [] All other systems were reviewed and found to be within normal limits, except as documented in this note. Current Medications Current Medications Current Medications Medications (Trade) Dose Ordered Sig/Courtney Start Time Stop Time Status Last Admin Dose Admin Azithromycin 250 ml @ 250 mls/hr 1X ONCE 08/27/18 10:45 08/27/18 11:44 Azithromycin 500 mg/Sodium Chloride 250 ml @ 250 mls/hr 1X ONCE 08/27/18 10:30 08/27/18 10:34 DC Ceftriaxone Sodium (Rocephin) 1 gm 1X ONCE 08/27/18 10:30 08/27/18 10:33 DC Info (CONTRAST GIVEN -- Rx MONITORING) 1 each PRN DAILY PRN 08/27/18 09:00 08/29/18 08:59 Iohexol (Omnipaque 300 Mg/ml) 50 ml 1X ONCE 08/27/18 09:00 08/27/18 09:01 DC 08/27/18 09:11 25 ML Morphine Sulfate (Morphine Sulfate) 2 mg PRN Q2HR PRN 08/27/18 10:30 08/28/18 10:29 Ondansetron HCl (Zofran) 4 mg PRN Q8HRS PRN 08/27/18 10:30 08/28/18 10:29 Allergies Allergies Allergies Coded Allergies Type Severity Reaction Last Updated Verified No Known Medication Allergies Allergy Unknown 07/25/17 Yes Physical Exam Physical Exam Constitutional: Well developed, well nourished, no acute distress, non-toxic appearance. [] Cardiovascular: Old healed surgical incision noted midline chest. Heart rate regular rhythm, no murmur [] Lungs & Thorax: Bilateral breath sounds clear to auscultation [] Abdomen: Feeding tube noted on the left upper abdomen it has a cut on the distal end and is leaking from there. Bowel sounds normal, soft, no tenderness, no masses, no pulsatile masses. [] Skin: Warm, dry, no erythema, no rash. [] Back: No tenderness, no CVA tenderness. [] Extremities: Right sided hemiparesis, right below the knee amputation Neurologic: Patient is awake and alert, aphasic. This is her baseline. Psychologic: normal mood Current Patient Data Vital Signs Vital Signs Date Time Temp Pulse Resp B/P (MAP) Pulse Ox O2 Delivery O2 Flow Rate FiO2 08/27/18 08:09 98.3 79 20 154/70 (98) 97 Room Air 98.3 EKG EKG [] Radiology/Procedures Radiology/Procedures []PROCEDURE: ACUTE ABDOMEN SERIES ACUTE ABDOMEN SERIES History: G-tube replacement, cough Comparison: November 24, 2017 chest radiograph and KUB July 26, 2017 Findings: Single view of the chest and single supine and upright views of abdomen are submitted. There is now prominent infiltrate of the right upper lobe, some patchy mild airspace opacity of the mid left hemithorax and right lung base. There is again prominent atherosclerotic calcification of the thoracic aorta. There again has been a median sternotomy. Pericardial cardiac silhouette is enlarged although unchanged. There is no pneumothorax or significant pleural fluid. No free air is identified. There are stents in the right iliac vessels. There is more prominent retained stool in region of the rectosigmoid colon, although also seen of the right colon. Contrast is seen in segments of stomach and small bowel. There are right upper quadrant clips likely due to cholecystectomy. Impression: 1. Contrast is in segments of the stomach and small bowel. 2. There is prominent retained stool greatest of the right colon and rectosigmoid colon. 3. There is prominent right upper lobe infiltrate and some other patchy bibasilar airspace opacity, likely pneumonia. Electronically signed by: Ariel Richey MD (08/27/2018 9:31 AM) [id number] DICTATED and SIGNED BY: ARIEL RICHEY MD DATE: 08/27/18 0931 Course & Med Decision Making Course & Med Decision Making Pertinent Labs and Imaging studies reviewed. (See chart for details) This is a 72-year-old female patient with history of CVA with a feeding tube pre senting for feeding tube replacement, the current tube is leaking on the distal tube and a cough. Feeding tube was removed by and replaced by me, gastric content noted as soon as the feeding tube during replacement. Awaiting x-ray for confirmation and r/o pneumonia due to the cough Acute abdominal series xray- Contrast is in segments of the stomach and small bowel. Constipation, and RUL pneumonia Spoke with Dr. Valle who accepted patient for admission. He requested CBC, BMP which ordered. Vitals in the ED temperature 90.8 0.379 respiration 20 room air blood pressure 154/70 O2 sats 97% on room air. Rocephin and azithromycin IV were ordered. Admitted in stable condition Dragon Disclaimer Dragon Disclaimer This electronic medical record was generated, in whole or in part, using a voice recognition dictation system. Departure Departure Impression: Primary Impression: Right upper lobe pneumonia Additional Impressions: Encounter for feeding tube placement Constipation Disposition: ADMITTED INPATIENT Condition: STABLE Referrals: IRWIN VALLE MD (PCP) Problem Qualifiers Primary Impression: Right upper lobe pneumonia Pneumonia type: due to unspecified organism Qualified Codes: J18.1 - Lobar pneumonia, unspecified organism Additional Impressions: Constipation Constipation type: unspecified constipation type Qualified Codes: K59.00 - Constipation, unspecified MUTUNGAGAETANO APRN August 27, 2018 08:20
[2018-08-27] MEDS ORDERED: IOHEXOL 300 MG/ML 50 ML VIAL. PO ONE (09:00)
[2018-08-27] MEDS ORDERED: CONTRAST GIVEN. MC PRN (09:00)
--- NOTE | 2018-08-27 09:34 | RAD ---
ACUTE ABDOMEN SERIES History: G-tube replacement, cough Comparison: November 24, 2017 chest radiograph and KUB July 26, 2017 Findings: Single view of the chest and single supine and upright views of abdomen are submitted. There is now prominent infiltrate of the right upper lobe, some patchy mild airspace opacity of the mid left hemithorax and right lung base. There is again prominent atherosclerotic calcification of the thoracic aorta. There again has been a median sternotomy. Pericardial cardiac silhouette is enlarged although unchanged. There is no pneumothorax or significant pleural fluid. No free air is identified. There are stents in the right iliac vessels. There is more prominent retained stool in region of the rectosigmoid colon, although also seen of the right colon. Contrast is seen in segments of stomach and small bowel. There are right upper quadrant clips likely due to cholecystectomy. Impression: 1. Contrast is in segments of the stomach and small bowel. 2. There is prominent retained stool greatest of the right colon and rectosigmoid colon. 3. There is prominent right upper lobe infiltrate and some other patchy bibasilar airspace opacity, likely pneumonia. Electronically signed by: Kai Duque MD (08/27/2018 9:31 AM) [id number]
[2018-08-27] MEDS ORDERED: ONDANSETRON PF 4 MG/2 ML VIAL. IV PRN (10:30)
[2018-08-27] MEDS ORDERED: AZITHROMYCIN 500 MG in IV NORMAL SALINE 250ML 250 ML IV ONE (10:30)
[2018-08-27] MEDS ORDERED: cefTRIAXone IV Push 1 GM VIAL. IVP ONE (10:30)
[2018-08-27] MEDS ORDERED: MORPHINE SULFATE 2 MG/ML VIAL. IV PRN (10:30)
[2018-08-27] MEDS ORDERED: AZITHRMYCN 500MG IVPB FOR OMNI 250 ML IV ONE (10:45)
[2018-08-27 11:17] LABS: BASO # 0.1 x10^3/uL (0.0-0.2); BASO % 1 % (0-3); EOS # 0.4 x10^3/uL (0.0-0.7); EOS % 4 % (0-3); HEMATOCRIT 34.6 % (36.0-47.0); HEMOGLOBIN 11.4 g/dL (12.0-15.5); LYMPH # 2.1 x10^3/uL (1.0-4.8); LYMPH % 23 % (24-48); MEAN CORPUSCULAR HEMOGLOBIN 31 pg (25-35); MEAN CORPUSCULAR HGB CONC 33 g/dL (31-37); MEAN CORPUSCULAR VOLUME 93 fL (79-100); MONO # 0.5 x10^3/uL (0.0-1.1); MONO % 6 % (0-9); NEUT # 5.9 x10^3uL (1.8-7.7); NEUT % 66 % (31-73); PLATELET COUNT 202 x10^3/uL (140-400); RED BLOOD COUNT 3.73 x10^6/uL (3.50-5.40); RED CELL DISTRIBUTION WIDTH 14.1 % (11.5-14.5)
[2018-08-27] MEDS ORDERED: ISOS20TA4 PEG (12:16)
[2018-08-27] MEDS ORDERED: AMLO10TA8 PEG (12:17)
[2018-08-27 12:25] LABS: CALCIUM 9.3 mg/dL (8.5-10.1); CREATININE 0.8 mg/dL (0.6-1.0); GFR 85.1; POTASSIUM 3.8 mmol/L (3.5-5.1)
[2018-08-27 12:45] VITALS: BP 123/57
[2018-08-27] MEDS ORDERED: ACETAMINOPHEN 650 MG/20.3 ML SOLUTION. PEG PRN (12:45)
--- NOTE | 2018-08-27 13:27 | PDOC ---
Provider Note Provider Note history and physical dictated # [id number] IRWIN BELLO MD August 27, 2018 13:27
--- NOTE | 2018-08-27 13:44 | EKG ---
[facility] [address] [place] [address] Test Date: 2018-08-27 Test Time: 13:34:59 Pat Name: ARIK ARAUJO Department: Room: 524 1 Gender: F County Agent: [place] : 1945 Requested By: IRWIN BELLO Order Number: [id number] Reading MD: Measurements Intervals Issue Rate: 69 P: -12 TX: 244 QRS: -26 QRSD: 144 T: 137 QT: 460 QTc: 495 Interpretive Statements SINUS RHYTHM PROLONGED TX INTERVAL LEFTWARD AXIS NON SPECIFIC INTRAVENTRICULAR BLOCK QRS(T) CONTOUR ABNORMALITY CONSISTENT WITH ANTEROSEPTAL INFARCT POSSIBLY RECENT ABNORMAL ECG RI6.01 Compared to ECG 11/22/2017 19:44:51 First degree AV block now present Left-axis deviation now present Myocardial infarct finding now present Left bundle-branch block no longer present
--- NOTE | 2018-08-27 13:56 | HP ---
ADMIT DATE: 08/27/2018 LOCATION: She is in number #[phone]. 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 The gastrostomy tube was replaced and an acute abdominal series was done and the radiologist noted a right upper lobe infiltrate, which he calls pneumonia. The patient subsequently was admitted to the hospital and received IV Rocephin and Zithromax. The patient cannot give any type of history at all and daughter is not present during my examination. She is therefore admitted for further evaluation and treatment of her right upper lobe infiltrate, suspected pneumonia on IV antibiotics. ALLERGIES AND INTOLERANCES: None. MEDICATIONS: Prior to admission include Tylenol every 6 hours p.r.n., amlodipine 10 mg every day, aspirin 81 mg every day, atorvastatin 40 mg every day, furosemide 20 mg every day, hydralazine 25 mg t.i.d., isosorbide dinitrate 20 mg t.i.d., losartan 100 mg every day, potassium chloride 20 mEq every day, Prevacid 30 mg every day. 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 She has a PEG. She has a previous right above-knee amputation. She has a history of diabetes mellitus type 2, treated with diet; hypertension; hyperlipidemia and she also has a history of chronic atrial fibrillation, but could not tolerate anticoagulation due to recurrent gross hematuria. She has a neurogenic bladder. She has a chronic Saab catheter in place and she is in the middle of trying to get a suprapubic catheter. She also has a history of a cardiomyopathy in 2009 and coronary artery disease. SOCIAL HISTORY: She resides at home where she is cared for by her daughter, does not drink alcohol nor does she smoke cigarettes. FAMILY HISTORY: Unobtainable. REVIEW OF SYSTEMS: Unobtainable. She is aphasic. PHYSICAL EXAMINATION: VITAL SIGNS: Temperature is 98.3 degrees, apical pulse is actually 64, respiratory rate is 20, blood pressure is 150/65, oxygen saturation 96% on room air. HEENT: Eyes: Gaze is conjugate. She has some facial weakness. NECK: No cervical lymphadenopathy. HEART: Reveals an S1, S2. There is no S3 or murmur. LUNGS: Clear with decreased breath sounds anteriorly. ABDOMEN: Soft. Bowel sounds are positive. She got a gastrostomy tube and her acute abdominal series showed that there was contrast into the stomach and small bowel. The G tube is noted. EXTREMITIES: Lower extremities, she got a right above-knee amputation. She has got no edema in the left leg, could not feel any pulses in the left foot, but the left foot is warm. SKIN: No rashes. LABORATORY DATA: Review of her laboratory tests, the white count is 9.0, hemoglobin 11.4, platelet count 202,000 with 66 polys and 23 lymphocytes. She had a sodium of 144, potassium 3.8, chloride 106, total CO2 of 29, BUN 27, creatinine 0.8, blood sugar 112, and calcium is 9.3. She had an acute abdominal series done, which showed contrast in the stomach and small bowel. She had some stool in the right side of the colon and rectosigmoid. She had a prominent right upper lobe infiltrate and some patchy bibasilar airspace opacities that the radiologist thought it was consistent with pneumonia. ASSESSMENT: 1. Right upper lobe lung infiltrate, possibly due to the pneumonia. She does not have a fever and leukocytosis. 2. Recent PEG replaced in the Emergency Room earlier today. 3. Diabetes mellitus type 2, treated with diet. 4. Hypertension. 5. Hyperlipidemia. 6. Cerebrovascular accident with late effects with spastic right-sided hemiparesis, aphasia, and oropharyngeal dysphagia. 7. History of a right above-knee amputation. 8. Coronary artery disease. 9. Chronic atrial fibrillation, but not a candidate for Coumadin. 10. Neurogenic bladder. PLAN: At this time is to consult Dr. Lebron and will continue with IV Rocephin and Zithromax. Blood cultures have been ordered and we will continue with her tube feeding boluses, water flushes and home medications. Repeat the CBC and CMP tomorrow and also put her on some nebulizer treatments. IRWIN BELLO MD DR: ARMIDA/herb JOB#: [id number] / [id number]
--- NOTE | 2018-08-27 14:42 | CONS ---
DATE OF CONSULTATION: 08/27/2018 PULMONARY CONSULTATION ATTENDING PHYSICIAN: Clovis Valle MD. REASON FOR CONSULTATION: Pneumonia. HISTORY OF PRESENT ILLNESS: The patient is a 72-year-old who has history of CVA with spastic right-sided hemiparesis. She has global aphasia and oropharyngeal dysphagia. She has a PEG tube in place. She also has right above knee amputation. She was brought into the hospital by her daughter who is also her caregiver. The patient had a gastrostomy tube, which was malfunctioning. The patient had an acute abdominal series and radiologist noted right upper lobe infiltrate. As a result, she has been hospitalized for further evaluation. I am unable to obtain much history from the patient. I have reviewed the patient's chest x-ray. There are faint right upper lobe infiltrates and also possibly some lingular infiltrates as well. PAST MEDICAL HISTORY: Significant for history of CVA, history of right-sided hemiparesis with history of global aphasia, history of oropharyngeal dysphagia, status post PEG tube, history of type 2 diabetes, hypertension, chronic atrial fibrillation, hyperlipidemia. PAST SURGICAL HISTORY: As dictated by Dr. Valle's note. SOCIAL HISTORY: Resides at home and cared by her daughter. No history of tobacco or alcohol use. FAMILY HISTORY: Unable to obtain. REVIEW OF SYSTEMS: Unable to obtain. ALLERGIES: None. MEDICATIONS: Reviewed including antibiotics, Rocephin and Zithromax. PHYSICAL EXAMINATION: VITAL SIGNS: Stable. She is afebrile, pulse ox 94% on room air. NECK: Supple. LUNGS: With diminished breath sounds. CARDIOVASCULAR: Regular rate and rhythm. ABDOMEN: Soft. EXTREMITIES: With no pitting edema. LABORATORY DATA: Reviewed. White cell count 9.0, hemoglobin 11.4 and platelets are 202. BUN and creatinine 27 and 0.8. IMPRESSION: 1. Mild right upper lobe and minimal lingular infiltrate, likely related to aspiration pneumonia. clinically lacks symptoms 2. The patient with history of cerebrovascular accident and spastic right-sided hemiparesis along with global aphasia and oropharyngeal dysphagia, status post PEG tube. 3. History of chronic atrial fibrillation. RECOMMENDATIONS: 1. Continue with present antibiotics. 2. Would recommend changing to oral antibiotics via PEG in the next 24 hours. Clinically, she does not have any fever and does not have any significant leukocytosis. 3. She could be discharged back to custodial hopefully in next 24 hours. IFEOMA CHURCH MD DR: CONTRERAS/herb JOB#: [id number] / [id number] Clovis Barney MD MTDD
[2018-08-27 15:00] VITALS: BP 161/60
[2018-08-27] MEDS ORDERED: ASPIRIN 325 MG TABLET PEG SCH (15:15)
[2018-08-27] MEDS ORDERED: AZITHROMYCIN 200 MG/5 ML ORAL.SUSP. PEG SCH (15:15)
--- NOTE | 2018-08-27 15:31 | NUR ---
Pt's daughter called to notify this nurse that the pt did not take her medication yet today.
[2018-08-27] MEDS: hydrALAZINE 25 MG TABLET PEG SCH ×2 (15:48→21:10)
[2018-08-27] MEDS: POTASSIUM BICARB 20 MEQ EFFERVESCENT TABLET. PEG SCH (15:50)
[2018-08-27] MEDS: FUROSEMIDE 40 MG/4 ML ORAL SOLUTION. PEG SCH (15:50)
[2018-08-27] MEDS: amLODIPine BESYLATE 10 MG TABLET PEG SCH (15:50)
[2018-08-27] MEDS: ISOSORBIDE DINITRATE 10 MG TABLET. PEG SCH ×2 (15:51→21:10)
[2018-08-27] MEDS: LANSOPRAZOLE 30 MG TAB.RAP.DR PEG SCH (15:52)
[2018-08-27] MEDS: LOSARTAN POTASSIUM 50 MG TABLET. PEG SCH (15:56)
[2018-08-27] MEDS: IPRATRPIUM/ALBUTEROL 0.5/2.5MG 3 ML NEBU. NEB SCH ×2 (15:59→20:09)
[2018-08-27 19:00] VITALS: BP 116/55
[2018-08-27] MEDS ORDERED: ATORVASTATIN CALCIUM 40 MG TABLET. PEG SCH (21:00)
[2018-08-27 23:00] VITALS: BP 119/51
[2018-08-28 03:00] VITALS: BP 121/47
[2018-08-28 04:14] LABS: BASO % 1 % (0-3); EOS # 0.3 x10^3/uL (0.0-0.7); EOS % 4 % (0-3); HEMATOCRIT 30.2 % (36.0-47.0); HEMOGLOBIN 10.1 g/dL (12.0-15.5); LYMPH # 2.1 x10^3/uL (1.0-4.8); LYMPH % 31 % (24-48); MEAN CORPUSCULAR HEMOGLOBIN 31 pg (25-35); MEAN CORPUSCULAR HGB CONC 33 g/dL (31-37); MEAN CORPUSCULAR VOLUME 93 fL (79-100); MONO # 0.6 x10^3/uL (0.0-1.1); MONO % 9 % (0-9); NEUT # 3.8 x10^3uL (1.8-7.7); NEUT % 56 % (31-73); PLATELET COUNT 178 x10^3/uL (140-400); RED BLOOD COUNT 3.27 x10^6/uL (3.50-5.40); RED CELL DISTRIBUTION WIDTH 13.9 % (11.5-14.5); WHITE BLOOD COUNT 6.8 x10^3/uL (4.0-11.0)
[2018-08-28 04:29] LABS: ALBUMIN 2.3 g/dL (3.4-5.0); ALBUMIN/GLOBULIN RATIO 0.6 (1.0-1.7); CALCIUM 8.7 mg/dL (8.5-10.1); CREATININE 0.8 mg/dL (0.6-1.0); GFR 85.1; POTASSIUM 4.2 mmol/L (3.5-5.1); TOTAL BILIRUBIN 0.6 mg/dL (0.2-1.0); TOTAL PROTEIN 6.3 g/dL (6.4-8.2)
[2018-08-28] MEDS: POTASSIUM BICARB 20 MEQ EFFERVESCENT TABLET. PEG SCH (05:05)
[2018-08-28 07:00] VITALS: BP 148/68
[2018-08-28] MEDS ORDERED: ASPIRIN 325 MG TABLET PEG SCH (08:00)
[2018-08-28] MEDS ORDERED: ASPIRIN CHEWABLE 81 MG TABLET. PEG SCH (08:00)
[2018-08-28] MEDS: IPRATRPIUM/ALBUTEROL 0.5/2.5MG 3 ML NEBU. NEB SCH ×2 (08:00→12:11)
--- NOTE | 2018-08-28 08:29 | RAD ---
Portable chest, 08/28/2018: HISTORY: Pneumonia Comparison is made to a study from 11/24/2017. There has been a previous median sternotomy. The heart is mildly enlarged. There is extensive calcific plaquing and tortuosity of the thoracic aorta. The pulmonary vascularity is normal. There is minimal linear atelectasis or scarring in the left base. No pulmonary consolidation is seen. There is no evidence of pleural fluid. IMPRESSION: 1. Cardiomegaly and aortic atherosclerosis. 2. Minimal left basilar linear atelectasis or scarring. Electronically signed by: Mat Sweeney MD (08/28/2018 8:25 AM) [facility]
[2018-08-28] MEDS: hydrALAZINE 25 MG TABLET PEG SCH (08:59)
[2018-08-28] MEDS ORDERED: AZITHROMYCIN 200 MG/5 ML ORAL.SUSP. PEG SCH (09:00)
[2018-08-28] MEDS ORDERED: FUROSEMIDE 40 MG/4 ML ORAL SOLUTION. PEG SCH (09:00)
[2018-08-28] MEDS ORDERED: LANSOPRAZOLE 30 MG TAB.RAP.DR PEG SCH (09:00)
[2018-08-28] MEDS: FUROSEMIDE 40 MG/4 ML ORAL SOLUTION. PEG SCH (09:00)
[2018-08-28] MEDS ORDERED: amLODIPine BESYLATE 10 MG TABLET PEG SCH (09:00)
[2018-08-28] MEDS: LOSARTAN POTASSIUM 50 MG TABLET. PEG SCH (09:00)
[2018-08-28] MEDS ORDERED: LOSARTAN POTASSIUM 50 MG TABLET. PEG SCH (09:00)
[2018-08-28] MEDS ORDERED: POTASSIUM BICARB 20 MEQ EFFERVESCENT TABLET. PEG SCH (09:00)
[2018-08-28] MEDS: ISOSORBIDE DINITRATE 10 MG TABLET. PEG SCH (09:00)
[2018-08-28] MEDS: amLODIPine BESYLATE 10 MG TABLET PEG SCH (09:01)
[2018-08-28] MEDS: LANSOPRAZOLE 30 MG TAB.RAP.DR PEG SCH (09:01)
--- NOTE | 2018-08-28 10:34 | PDOC ---
PROGRESS NOTES Subjective Subjective alert and comfortable. no cough or fever. wbc normal. Objective Objective Vital Signs Date Time Temp Pulse Resp B/P (MAP) Pulse Ox O2 Delivery O2 Flow Rate FiO2 08/28/18 09:01 65 148/68 08/28/18 08:06 97 Room Air 08/28/18 07:00 98.4 16 98.4 Intake and Output 08/28/18 07:00 Intake Total 490 ml Output Total 300 ml Balance 190 ml Intake Oral 240 ml Other 250 ml Output Urine Total 300 ml # Bowel Movements 1 Physical Exam Abdomen: Soft, Other (PEG) Heart: Normal S1, Normal S2 Extremities: No edema, Other (right AKA) General: Alert HEENT: Atraumatic Lungs: Clear to auscultation Neuro: Other (aphasic) Psych/Mental Status: Mental status NL Skin: No rashes Assessment Assessment Problems1. Right upper lobe lung infiltrate, possibly due to the pneumonia. She does not have a fever and leukocytosis. 2. Recent PEG replaced in the Emergency Room earlier today. 3. Diabetes mellitus type 2, treated with diet. 4. Hypertension. 5. Hyperlipidemia. 6. Cerebrovascular accident with late effects with spastic right-sided hemiparesis, aphasia, and oropharyngeal dysphagia. 7. History of a right above-knee amputation. 8. Coronary artery disease. 9. Chronic atrial fibrillation, but not a candidate for Coumadin. 10. Neurogenic bladder. Medical Problems: (1) Constipation Status: Acute (2) Encounter for feeding tube placement Status: Acute (3) Right upper lobe pneumonia Status: Acute Plan Plan of Care switch to oral antibiotics dismiss today Comment Review of Relevant I have reviewed the following items sarah (where applicable) has been applied. Labs Laboratory Tests Test 08/27/18 11:05 08/27/18 12:00 08/27/18 12:20 08/27/18 16:47 White Blood Count 9.0 x10^3/uL (4.0-11.0) Red Blood Count 3.73 x10^6/uL (3.50-5.40) Hemoglobin 11.4 g/dL (12.0-15.5) Hematocrit 34.6 % (36.0-47.0) Mean Corpuscular Volume 93 fL (79-100) Mean Corpuscular Hemoglobin 31 pg (25-35) Mean Corpuscular Hemoglobin Concent 33 g/dL (31-37) Red Cell Distribution Width 14.1 % (11.5-14.5) Platelet Count 202 x10^3/uL (140-400) Neutrophils (%) (Auto) 66 % (31-73) Lymphocytes (%) (Auto) 23 % (24-48) Monocytes (%) (Auto) 6 % (0-9) Eosinophils (%) (Auto) 4 % (0-3) Basophils (%) (Auto) 1 % (0-3) Neutrophils # (Auto) 5.9 x10^3uL (1.8-7.7) Lymphocytes # (Auto) 2.1 x10^3/uL (1.0-4.8) Monocytes # (Auto) 0.5 x10^3/uL (0.0-1.1) Eosinophils # (Auto) 0.4 x10^3/uL (0.0-0.7) Basophils # (Auto) 0.1 x10^3/uL (0.0-0.2) Sodium Level 144 mmol/L (136-145) Potassium Level 3.8 mmol/L (3.5-5.1) Chloride Level 106 mmol/L (98-107) Carbon Dioxide Level 29 mmol/L (21-32) Anion Gap 9 (6-14) Blood Urea Nitrogen 27 mg/dL (7-20) Creatinine 0.8 mg/dL (0.6-1.0) Estimated GFR (Cockcroft-Gault) 85.1 Glucose Level 112 mg/dL (70-99) Calcium Level 9.3 mg/dL (8.5-10.1) Glucose (Fingerstick) 102 mg/dL (70-99) 113 mg/dL (70-99) Test 08/27/18 20:28 08/28/18 03:20 08/28/18 07:11 Glucose (Fingerstick) 121 mg/dL (70-99) 133 mg/dL (70-99) White Blood Count 6.8 x10^3/uL (4.0-11.0) Red Blood Count 3.27 x10^6/uL (3.50-5.40) Hemoglobin 10.1 g/dL (12.0-15.5) Hematocrit 30.2 % (36.0-47.0) Mean Corpuscular Volume 93 fL (79-100) Mean Corpuscular Hemoglobin 31 pg (25-35) Mean Corpuscular Hemoglobin Concent 33 g/dL (31-37) Red Cell Distribution Width 13.9 % (11.5-14.5) Platelet Count 178 x10^3/uL (140-400) Neutrophils (%) (Auto) 56 % (31-73) Lymphocytes (%) (Auto) 31 % (24-48) Monocytes (%) (Auto) 9 % (0-9) Eosinophils (%) (Auto) 4 % (0-3) Basophils (%) (Auto) 1 % (0-3) Neutrophils # (Auto) 3.8 x10^3uL (1.8-7.7) Lymphocytes # (Auto) 2.1 x10^3/uL (1.0-4.8) Monocytes # (Auto) 0.6 x10^3/uL (0.0-1.1) Eosinophils # (Auto) 0.3 x10^3/uL (0.0-0.7) Basophils # (Auto) 0.0 x10^3/uL (0.0-0.2) Sodium Level 145 mmol/L (136-145) Potassium Level 4.2 mmol/L (3.5-5.1) Chloride Level 108 mmol/L (98-107) Carbon Dioxide Level 29 mmol/L (21-32) Anion Gap 8 (6-14) Blood Urea Nitrogen 29 mg/dL (7-20) Creatinine 0.8 mg/dL (0.6-1.0) Estimated GFR (Cockcroft-Gault) 85.1 BUN/Creatinine Ratio 36 (6-20) Glucose Level 99 mg/dL (70-99) Calcium Level 8.7 mg/dL (8.5-10.1) Total Bilirubin 0.6 mg/dL (0.2-1.0) Aspartate Amino Transf (AST/SGOT) 25 U/L (15-37) Alanine Aminotransferase (ALT/SGPT) 30 U/L (14-59) Alkaline Phosphatase 137 U/L (46-116) Total Protein 6.3 g/dL (6.4-8.2) Albumin 2.3 g/dL (3.4-5.0) Albumin/Globulin Ratio 0.6 (1.0-1.7) Laboratory Tests Test 08/27/18 11:05 08/27/18 12:00 08/27/18 12:20 08/27/18 16:47 White Blood Count 9.0 x10^3/uL (4.0-11.0) Red Blood Count 3.73 x10^6/uL (3.50-5.40) Hemoglobin 11.4 g/dL (12.0-15.5) Hematocrit 34.6 % (36.0-47.0) Mean Corpuscular Volume 93 fL (79-100) Mean Corpuscular Hemoglobin 31 pg (25-35) Mean Corpuscular Hemoglobin Concent 33 g/dL (31-37) Red Cell Distribution Width 14.1 % (11.5-14.5) Platelet Count 202 x10^3/uL (140-400) Neutrophils (%) (Auto) 66 % (31-73) Lymphocytes (%) (Auto) 23 % (24-48) Monocytes (%) (Auto) 6 % (0-9) Eosinophils (%) (Auto) 4 % (0-3) Basophils (%) (Auto) 1 % (0-3) Neutrophils # (Auto) 5.9 x10^3uL (1.8-7.7) Lymphocytes # (Auto) 2.1 x10^3/uL (1.0-4.8) Monocytes # (Auto) 0.5 x10^3/uL (0.0-1.1) Eosinophils # (Auto) 0.4 x10^3/uL (0.0-0.7) Basophils # (Auto) 0.1 x10^3/uL (0.0-0.2) Sodium Level 144 mmol/L (136-145) Potassium Level 3.8 mmol/L (3.5-5.1) Chloride Level 106 mmol/L (98-107) Carbon Dioxide Level 29 mmol/L (21-32) Anion Gap 9 (6-14) Blood Urea Nitrogen 27 mg/dL (7-20) Creatinine 0.8 mg/dL (0.6-1.0) Estimated GFR (Cockcroft-Gault) 85.1 Glucose Level 112 mg/dL (70-99) Calcium Level 9.3 mg/dL (8.5-10.1) Glucose (Fingerstick) 102 mg/dL (70-99) 113 mg/dL (70-99) Test 08/27/18 20:28 08/28/18 03:20 08/28/18 07:11 Glucose (Fingerstick) 121 mg/dL (70-99) 133 mg/dL (70-99) White Blood Count 6.8 x10^3/uL (4.0-11.0) Red Blood Count 3.27 x10^6/uL (3.50-5.40) Hemoglobin 10.1 g/dL (12.0-15.5) Hematocrit 30.2 % (36.0-47.0) Mean Corpuscular Volume 93 fL (79-100) Mean Corpuscular Hemoglobin 31 pg (25-35) Mean Corpuscular Hemoglobin Concent 33 g/dL (31-37) Red Cell Distribution Width 13.9 % (11.5-14.5) Platelet Count 178 x10^3/uL (140-400) Neutrophils (%) (Auto) 56 % (31-73) Lymphocytes (%) (Auto) 31 % (24-48) Monocytes (%) (Auto) 9 % (0-9) Eosinophils (%) (Auto) 4 % (0-3) Basophils (%) (Auto) 1 % (0-3) Neutrophils # (Auto) 3.8 x10^3uL (1.8-7.7) Lymphocytes # (Auto) 2.1 x10^3/uL (1.0-4.8) Monocytes # (Auto) 0.6 x10^3/uL (0.0-1.1) Eosinophils # (Auto) 0.3 x10^3/uL (0.0-0.7) Basophils # (Auto) 0.0 x10^3/uL (0.0-0.2) Sodium Level 145 mmol/L (136-145) Potassium Level 4.2 mmol/L (3.5-5.1) Chloride Level 108 mmol/L (98-107) Carbon Dioxide Level 29 mmol/L (21-32) Anion Gap 8 (6-14) Blood Urea Nitrogen 29 mg/dL (7-20) Creatinine 0.8 mg/dL (0.6-1.0) Estimated GFR (Cockcroft-Gault) 85.1 BUN/Creatinine Ratio 36 (6-20) Glucose Level 99 mg/dL (70-99) Calcium Level 8.7 mg/dL (8.5-10.1) Total Bilirubin 0.6 mg/dL (0.2-1.0) Aspartate Amino Transf (AST/SGOT) 25 U/L (15-37) Alanine Aminotransferase (ALT/SGPT) 30 U/L (14-59) Alkaline Phosphatase 137 U/L (46-116) Total Protein 6.3 g/dL (6.4-8.2) Albumin 2.3 g/dL (3.4-5.0) Albumin/Globulin Ratio 0.6 (1.0-1.7) Medications Current Medications Iohexol (Omnipaque 300 Mg/ml) 50 ml 1X ONCE PO Last administered on 08/27/18at 09:11; Start 08/27/18 at 09:00; Stop 08/27/18 at 09:01; Status DC Info (CONTRAST GIVEN -- Rx MONITORING) 1 each PRN DAILY PRN MC SEE COMMENTS; Start 08/27/18 at 09:00; Stop 08/29/18 at 08:59 Ceftriaxone Sodium (Rocephin) 1 gm 1X ONCE IVP Last administered on 08/27/18at 11:11; Start 08/27/18 at 10:30; Stop 08/27/18 at 10:33; Status DC Azithromycin 500 mg/Sodium Chloride 250 ml @ 250 mls/hr 1X ONCE IV ; Start 08/27/18 at 10:30; Stop 08/27/18 at 10:34; Status DC Ondansetron HCl (Zofran) 4 mg PRN Q8HRS PRN IV NAUSEA/VOMITING; Start 08/27/18 at 10:30; Stop 08/28/18 at 10:29; Status DC Morphine Sulfate (Morphine Sulfate) 2 mg PRN Q2HR PRN IV PAIN; Start 08/27/18 at 10:30; Stop 08/28/18 at 10:29; Status DC Azithromycin 250 ml @ 250 mls/hr 1X ONCE IV Last administered on 08/27/18at 11:21; Start 08/27/18 at 10:45; Stop 08/27/18 at 11:44; Status DC Ceftriaxone Sodium (Rocephin) 1 gm Q24H IVP ; Start 08/28/18 at 11:00 Azithromycin (Zithromax Oral Susp) 200 mg DAILY PEG Last administered on 08/28/18at 09:04; Start 08/28/18 at 09:00 Acetaminophen (Tylenol) 650 mg PRN Q6HRS PRN PEG MILD PAIN / TEMP; Start 08/27/18 at 12:45; Status Cancel Amlodipine Besylate (Norvasc) 10 mg DAILY PEG ; Start 08/28/18 at 09:00; Stop 08/28/18 at 09:00; Status DC Aspirin ([employer] Aspirin) 81 mg DAILYWBKFT PEG ; Start 08/28/18 at 08:00; Stop 08/28/18 at 08:00; Status DC Atorvastatin Calcium (Lipitor) 40 mg QHS PEG Last administered on 08/27/18at 21:10; Start 08/27/18 at 21:00 Furosemide (Lasix) 20 mg DAILY PEG ; Start 08/28/18 at 09:00; Stop 08/28/18 at 09:00; Status DC Albuterol/ Ipratropium (Duoneb) 3 ml RTQID NEB Last administered on 08/28/18at 08:00; Start 08/27/18 at 16:00 Isosorbide Dinitrate (Isordil) 20 mg TID PEG Last administered on 08/28/18at 09:00; Start 08/27/18 at 14:00 Losartan Potassium (Cozaar) 100 mg DAILY PEG ; Start 08/28/18 at 09:00; Stop 08/28/18 at 09:00; Status DC Potassium Bicarbonate (Potassium Effervescent Tablet) 20 meq DAILY05 PEG ; Start 08/28/18 at 09:00; Stop 08/28/18 at 09:00; Status DC Lansoprazole (Prevacid) 30 mg DAILY PEG ; Start 08/28/18 at 09:00; Stop 08/28/18 at 09:00; Status DC Hydralazine HCl (Apresoline) 25 mg TID PEG Last administered on 08/28/18at 08:59; Start 08/27/18 at 14:00 Amlodipine Besylate (Norvasc) 10 mg DAILY PEG Last administered on 08/28/18at 09:01; Start 08/27/18 at 15:15 Aspirin ([employer] Aspirin) 81 mg DAILYWBKFT PEG Last administered on 08/27/18at 15:49; Start 08/27/18 at 15:15; Stop 08/28/18 at 07:11; Status DC Azithromycin (Zithromax Oral Susp) 200 mg DAILY PEG ; Start 08/27/18 at 15:15; Status Cancel Furosemide (Lasix) 20 mg DAILY PEG Last administered on 08/28/18at 09:00; Start 08/27/18 at 15:15 Lansoprazole (Prevacid) 30 mg DAILY PEG Last administered on 08/28/18at 09:01; Start 08/27/18 at 15:15 Losartan Potassium (Cozaar) 100 mg DAILY PEG Last administered on 08/28/18at 09:00; Start 08/27/18 at 15:15 Potassium Bicarbonate (Potassium Effervescent Tablet) 20 meq DAILY05 PEG Last administered on 08/28/18at 05:05; Start 08/27/18 at 15:15 Aspirin (Children'S Aspirin) 81 mg DAILYWBKFT PEG Last administered on 08/28/18at 08:59; Start 08/28/18 at 08:00 Active Scripts Active Prevacid (Lansoprazole) 30 Mg Tab.rap.dr 30 Mg FT BID Potassium Chloride Oral Liquid (Potassium Chloride) 20 Meq/15 Ml Liquid 20 Meq PEG DAILY Hydralazine Hcl 25 Mg Tablet 25 Mg PEG TID Furosemide 20 Mg Tablet 20 Mg PEG DAILY Atorvastatin Calcium 40 Mg Tablet 40 Mg PEG QHS Children's Aspirin (Aspirin) 81 Mg Tab.chew 81 Mg PO DAILYWBKFT Acetaminophen Oral Liquid (Acetaminophen) 650 Mg/20.3 Ml Solution 650 Mg PEG PRN Q4HRS PRN Reported Amlodipine Besylate 10 Mg Tablet 10 Mg PEG DAILY Isosorbide Dinitrate 20 Mg Tablet 20 Mg PEG TID Vitamin D3 (Cholecalciferol (Vitamin D3)) 1,000 Unit Tablet 1,000 Unit GT DAILY Vitals/I & O Vital Sign - Last 24 Hours 08/27/18 08/27/18 08/27/18 08/27/18 11:13 12:45 12:45 15:00 Temp 98.3 98.7 98.3 98.7 Pulse 92 74 72 Resp 24 14 14 B/P (MAP) 150/65 (93) 123/57 (79) 161/60 (93) Pulse Ox 96 94 96 O2 Delivery Room Air Room Air Room Air Room Air 08/27/18 08/27/18 08/27/18 08/27/18 15:48 15:50 15:51 15:56 Pulse 74 72 72 72 B/P (MAP) 123/57 161/60 161/60 161/60 08/27/18 08/27/18 08/27/18 08/27/18 16:03 19:00 20:00 20:09 Temp 98.9 98.9 Pulse 76 Resp 18 B/P (MAP) 116/55 (75) Pulse Ox 96 97 96 O2 Delivery Room Air Room Air Room Air Room Air 08/27/18 08/27/18 08/27/18 08/28/18 21:10 21:10 23:00 03:00 Temp 99.9 98.8 99.9 98.8 Pulse 74 74 80 74 Resp 18 18 B/P (MAP) 127/66 127/66 119/51 (73) 121/47 (71) Pulse Ox 95 94 O2 Delivery Room Air Room Air 08/28/18 08/28/18 08/28/18 08/28/18 07:00 08:00 08:06 08:59 Temp 98.4 98.4 Pulse 65 65 Resp 16 B/P (MAP) 148/68 (94) 148/68 Pulse Ox 97 97 O2 Delivery Room Air Room Air Room Air 08/28/18 08/28/18 08/28/18 09:00 09:00 09:01 Pulse 65 65 65 B/P (MAP) 148/68 148/68 148/68 Intake and Output 08/27/18 08/27/18 08/28/18 15:00 23:00 07:00 Intake Total 490 ml 0 ml Output Total 300 ml Balance 490 ml -300 ml IRWIN BELLO MD August 28, 2018 10:33
[2018-08-28] MEDS ORDERED: AMLO10TA8 PEG (10:43)
[2018-08-28] MEDS ORDERED: LOSA-73 PEG (10:43)
[2018-08-28] MEDS ORDERED: CEPH250S30 PEG (10:43)
[2018-08-28] MEDS ORDERED: LANS30TA6 PEG (10:43)
[2018-08-28] MEDS ORDERED: AZIT200S4 PEG (10:43)
--- NOTE | 2018-08-28 10:46 | SNU/HH DC ---
DISCHARGE WITH HOME HEALTH DISCHARGE INFORMATION: Discharge Date: August 28, 2018 Final Diagnosis: Problems Medical Problems: (1) Constipation Status: Acute (2) Encounter for feeding tube placement Status: Acute (3) Right upper lobe pneumonia Status: Acute Condition on Discharge: Stable CODE STATUS: Code Status: Full HOME HEALTH: Face to Face: I certify this patient is under my care and that I, or a nurse practitioner or physician's custody assistant working with me, had a face to face encounter that meets the physician face to face encounter requirements with this patient on [08/28/18 ]. Medical Complications: Other (PEG replaced) RN For Eval/Treatment: Yes Pt Meets Homebound Status: Other: (unable to walk) POST DISCHARGE ORDERS: Activity Instructions for Disc: Resume previous activity Weight Bearing Status after Di: Non weight bearing DIET AFTER DISCHARGE: continue Jevit 04/04 1 bolus 5 times/day. water 250cc 5X a day via PEG Wound/Incision Care: Change dressing CHECKS AFTER DISCHARGE: Checks after discharge: Check blood press - daily, Check blood sugar, ac/hs FOLLOW-UP: Follow up with: dr. bello next week TREATMENT/EQUIPMENT ORDERS: Adaptive Equipment Issued: None Discharge Respiratory Equipmen: Nebulizer CERTIFICATION STATEMENT: Certification Statement: Certification Statement: Based on the above finding, I certify that this patient is confined to the home and needs intermittent custodial care, physical therapy and/or speech therapy, or continues to need occupational therapy.~ This patient is under my care, and I have initiated the establishment of the plan of care.~ This patient will be followed by myself or a community physician who will periodically review the plan of care. Home Meds Active Scripts Lansoprazole (PREVACID) 30 Mg Tab., 30 MG PEG DAILY for gerd, #30 TAB Prov:IRWIN BELLO MD 08/28/18 Amlodipine Besylate (AMLODIPINE BESYLATE) 10 Mg Tablet, 10 MG PEG DAILY for HTN, #30 TAB Prov:IRWIN BELLO MD 08/28/18 Losartan Potassium (COZAAR ) 50 Mg Tablet, 100 MG PEG DAILY for HTN, #30 TAB Prov:IRWIN BELLO MD 08/28/18 Azithromycin (AZITHROMYCIN ORAL SUSP) 200 Mg/5 Ml Susp.recon, 200 MG PEG DAILY for pneumonia for 3 Days, MISC Prov:IRWIN BELLO MD 08/28/18 Cephalexin (CEPHALEXIN) 250 Mg/5 Ml Susp.recon, 500 MG PEG Q8HRS for pneumonia for 7 Days, MISC Prov:IRWIN BELLO MD 08/28/18 Lansoprazole (PREVACID) 30 Mg Tab.rap.dr, 30 MG FT BID, #60 MG Prov:IRWIN BELLO MD 07/16/16 Potassium Chloride (POTASSIUM CHLORIDE ORAL LIQUID) 20 Meq/15 Ml Liquid, 20 MEQ PEG DAILY, #30 LIQUID Prov:IRWIN BELLO MD 07/16/16 Hydralazine Hcl (HYDRALAZINE HCL) 25 Mg Tablet, 25 MG PEG TID, #90 MG Prov:IRWIN BELLO MD 07/16/16 Furosemide (FUROSEMIDE) 20 Mg Tablet, 20 MG PEG DAILY, #30 MG Prov:IRWIN BELLO MD 07/16/16 Atorvastatin Calcium (ATORVASTATIN CALCIUM) 40 Mg Tablet, 40 MG PEG QHS, #30 MG Prov:IRWIN BELLO MD 07/16/16 Aspirin (Children's Aspirin) 81 Mg Tab.chew, 81 MG PO DAILYWBKFT, #30 TAB.CHEW Prov:IRWIN BELLO MD 05/01/14 Acetaminophen (ACETAMINOPHEN ORAL LIQUID ) 650 Mg/20.3 Ml Solution, 650 MG PEG PRN Q4HRS PRN for PAIN / TEMP, #60 BOT Prov:IRWIN BELLO MD 05/01/14 Reported Medications Amlodipine Besylate (AMLODIPINE BESYLATE) 10 Mg Tablet, 10 MG PEG DAILY for hype rtension 08/27/18 Isosorbide Dinitrate (ISOSORBIDE DINITRATE) 20 Mg Tablet, 20 MG PEG TID for hypertension, TAB 08/27/18 Cholecalciferol (Vitamin D3) (VITAMIN D3) 1,000 Unit Tablet, 1000 UNIT GT DAILY 11/23/14 IRWIN BELLO MD August 28, 2018 10:46
--- NOTE | 2018-08-28 10:51 | PDOC ---
Provider Note Provider Note discharge summary dictated # [id number] IRWIN BELLO MD August 28, 2018 10:51
[2018-08-28 11:00] VITALS: BP 113/54
[2018-08-28] MEDS ORDERED: cefTRIAXone IV Push 1 GM VIAL. IVP SCH (11:00)
--- NOTE | 2018-08-28 11:17 | NUR ---
Discharge order acknowledged, awaiting home health and transportation to be set up.
--- NOTE | 2018-08-28 11:33 | NUR ---
MADYSON notified pt needs home health. MADYSON spoke with pt's daughter, Soraya who reported they have been using [facility]. MADYSON phoned and faxed orders to [facility], phone: [phone], fax: [phone]. They will be seeing pt in the next 48-72 hours. Daughter also requested and MADYSON arranged transportation via [employer] at 1300, Left a message for pt's daughter regarding pecan picker time. RN notified.
--- NOTE | 2018-08-28 11:40 | PDOC ---
PULMONARY PROGRESS NOTES Subjective no soa Vitals Vital Signs Date Time Temp Pulse Resp B/P (MAP) Pulse Ox O2 Delivery O2 Flow Rate FiO2 08/28/18 11:00 98.3 84 18 113/54 (73) 94 Room Air 98.3 General: Alert, No acute distress Lungs: Clear Cardiovascular: S1, S2 Abdomen: Soft Extremities: No Edema Labs Laboratory Tests Test 08/27/18 11:05 08/27/18 12:00 08/27/18 12:20 08/27/18 16:47 White Blood Count 9.0 x10^3/uL (4.0-11.0) Red Blood Count 3.73 x10^6/uL (3.50-5.40) Hemoglobin 11.4 g/dL (12.0-15.5) Hematocrit 34.6 % (36.0-47.0) Mean Corpuscular Volume 93 fL (79-100) Mean Corpuscular Hemoglobin 31 pg (25-35) Mean Corpuscular Hemoglobin Concent 33 g/dL (31-37) Red Cell Distribution Width 14.1 % (11.5-14.5) Platelet Count 202 x10^3/uL (140-400) Neutrophils (%) (Auto) 66 % (31-73) Lymphocytes (%) (Auto) 23 % (24-48) Monocytes (%) (Auto) 6 % (0-9) Eosinophils (%) (Auto) 4 % (0-3) Basophils (%) (Auto) 1 % (0-3) Neutrophils # (Auto) 5.9 x10^3uL (1.8-7.7) Lymphocytes # (Auto) 2.1 x10^3/uL (1.0-4.8) Monocytes # (Auto) 0.5 x10^3/uL (0.0-1.1) Eosinophils # (Auto) 0.4 x10^3/uL (0.0-0.7) Basophils # (Auto) 0.1 x10^3/uL (0.0-0.2) Sodium Level 144 mmol/L (136-145) Potassium Level 3.8 mmol/L (3.5-5.1) Chloride Level 106 mmol/L (98-107) Carbon Dioxide Level 29 mmol/L (21-32) Anion Gap 9 (6-14) Blood Urea Nitrogen 27 mg/dL (7-20) Creatinine 0.8 mg/dL (0.6-1.0) Estimated GFR (Cockcroft-Gault) 85.1 Glucose Level 112 mg/dL (70-99) Calcium Level 9.3 mg/dL (8.5-10.1) Glucose (Fingerstick) 102 mg/dL (70-99) 113 mg/dL (70-99) Test 08/27/18 20:28 08/28/18 03:20 08/28/18 07:11 Glucose (Fingerstick) 121 mg/dL (70-99) 133 mg/dL (70-99) White Blood Count 6.8 x10^3/uL (4.0-11.0) Red Blood Count 3.27 x10^6/uL (3.50-5.40) Hemoglobin 10.1 g/dL (12.0-15.5) Hematocrit 30.2 % (36.0-47.0) Mean Corpuscular Volume 93 fL (79-100) Mean Corpuscular Hemoglobin 31 pg (25-35) Mean Corpuscular Hemoglobin Concent 33 g/dL (31-37) Red Cell Distribution Width 13.9 % (11.5-14.5) Platelet Count 178 x10^3/uL (140-400) Neutrophils (%) (Auto) 56 % (31-73) Lymphocytes (%) (Auto) 31 % (24-48) Monocytes (%) (Auto) 9 % (0-9) Eosinophils (%) (Auto) 4 % (0-3) Basophils (%) (Auto) 1 % (0-3) Neutrophils # (Auto) 3.8 x10^3uL (1.8-7.7) Lymphocytes # (Auto) 2.1 x10^3/uL (1.0-4.8) Monocytes # (Auto) 0.6 x10^3/uL (0.0-1.1) Eosinophils # (Auto) 0.3 x10^3/uL (0.0-0.7) Basophils # (Auto) 0.0 x10^3/uL (0.0-0.2) Sodium Level 145 mmol/L (136-145) Potassium Level 4.2 mmol/L (3.5-5.1) Chloride Level 108 mmol/L (98-107) Carbon Dioxide Level 29 mmol/L (21-32) Anion Gap 8 (6-14) Blood Urea Nitrogen 29 mg/dL (7-20) Creatinine 0.8 mg/dL (0.6-1.0) Estimated GFR (Cockcroft-Gault) 85.1 BUN/Creatinine Ratio 36 (6-20) Glucose Level 99 mg/dL (70-99) Calcium Level 8.7 mg/dL (8.5-10.1) Total Bilirubin 0.6 mg/dL (0.2-1.0) Aspartate Amino Transf (AST/SGOT) 25 U/L (15-37) Alanine Aminotransferase (ALT/SGPT) 30 U/L (14-59) Alkaline Phosphatase 137 U/L (46-116) Total Protein 6.3 g/dL (6.4-8.2) Albumin 2.3 g/dL (3.4-5.0) Albumin/Globulin Ratio 0.6 (1.0-1.7) Laboratory Tests Test 08/27/18 12:00 08/27/18 12:20 08/27/18 16:47 08/27/18 20:28 Sodium Level 144 mmol/L (136-145) Potassium Level 3.8 mmol/L (3.5-5.1) Chloride Level 106 mmol/L (98-107) Carbon Dioxide Level 29 mmol/L (21-32) Anion Gap 9 (6-14) Blood Urea Nitrogen 27 mg/dL (7-20) Creatinine 0.8 mg/dL (0.6-1.0) Estimated GFR (Cockcroft-Gault) 85.1 Glucose Level 112 mg/dL (70-99) Calcium Level 9.3 mg/dL (8.5-10.1) Glucose (Fingerstick) 102 mg/dL (70-99) 113 mg/dL (70-99) 121 mg/dL (70-99) Test 08/28/18 03:20 08/28/18 07:11 White Blood Count 6.8 x10^3/uL (4.0-11.0) Red Blood Count 3.27 x10^6/uL (3.50-5.40) Hemoglobin 10.1 g/dL (12.0-15.5) Hematocrit 30.2 % (36.0-47.0) Mean Corpuscular Volume 93 fL (79-100) Mean Corpuscular Hemoglobin 31 pg (25-35) Mean Corpuscular Hemoglobin Concent 33 g/dL (31-37) Red Cell Distribution Width 13.9 % (11.5-14.5) Platelet Count 178 x10^3/uL (140-400) Neutrophils (%) (Auto) 56 % (31-73) Lymphocytes (%) (Auto) 31 % (24-48) Monocytes (%) (Auto) 9 % (0-9) Eosinophils (%) (Auto) 4 % (0-3) Basophils (%) (Auto) 1 % (0-3) Neutrophils # (Auto) 3.8 x10^3uL (1.8-7.7) Lymphocytes # (Auto) 2.1 x10^3/uL (1.0-4.8) Monocytes # (Auto) 0.6 x10^3/uL (0.0-1.1) Eosinophils # (Auto) 0.3 x10^3/uL (0.0-0.7) Basophils # (Auto) 0.0 x10^3/uL (0.0-0.2) Sodium Level 145 mmol/L (136-145) Potassium Level 4.2 mmol/L (3.5-5.1) Chloride Level 108 mmol/L (98-107) Carbon Dioxide Level 29 mmol/L (21-32) Anion Gap 8 (6-14) Blood Urea Nitrogen 29 mg/dL (7-20) Creatinine 0.8 mg/dL (0.6-1.0) Estimated GFR (Cockcroft-Gault) 85.1 BUN/Creatinine Ratio 36 (6-20) Glucose Level 99 mg/dL (70-99) Calcium Level 8.7 mg/dL (8.5-10.1) Total Bilirubin 0.6 mg/dL (0.2-1.0) Aspartate Amino Transf (AST/SGOT) 25 U/L (15-37) Alanine Aminotransferase (ALT/SGPT) 30 U/L (14-59) Alkaline Phosphatase 137 U/L (46-116) Total Protein 6.3 g/dL (6.4-8.2) Albumin 2.3 g/dL (3.4-5.0) Albumin/Globulin Ratio 0.6 (1.0-1.7) Glucose (Fingerstick) 133 mg/dL (70-99) Medications Active Scripts Medications Dose Route/Sig Max Daily Dose Days Date Category Prevacid (Lansoprazole) 30 Mg Tab.rap.dr 30 Mg PEG DAILY 08/28/18 Rx Amlodipine Besylate 10 Mg Tablet 10 Mg PEG DAILY 08/28/18 Rx Cozaar (Losartan Potassium) 50 Mg Tablet 100 Mg PEG DAILY 08/28/18 Rx Azithromycin Oral Susp (Azithromycin) 200 Mg/5 Ml Susp.recon 200 Mg PEG DAILY 3 08/28/18 Rx Cephalexin 250 Mg/5 Ml Susp.recon 500 Mg PEG Q8HRS 7 08/28/18 Rx Amlodipine Besylate 10 Mg Tablet 10 Mg PEG DAILY 08/27/18 Reported Isosorbide Dinitrate 20 Mg Tablet 20 Mg PEG TID 08/27/18 Reported Potassium Chloride Oral Liquid (Potassium Chloride) 20 Meq/15 Ml Liquid 20 Meq PEG DAILY 07/16/16 Rx Hydralazine Hcl 25 Mg Tablet 25 Mg PEG TID 07/16/16 Rx Furosemide 20 Mg Tablet 20 Mg PEG DAILY 07/16/16 Rx Atorvastatin Calcium 40 Mg Tablet 40 Mg PEG QHS 07/16/16 Rx Vitamin D3 (Cholecalciferol (Vitamin D3)) 1,000 Unit Tablet 1,000 Unit GT DAILY 11/23/14 Reported Children's Aspirin (Aspirin) 81 Mg Tab.chew 81 Mg PO DAILYWBKFT 05/01/14 Rx Acetaminophen Oral Liquid (Acetaminophen) 650 Mg/20.3 Ml Solution 650 Mg PEG PRN Q4HRS PRN 05/01/14 Rx Impression . 1. Mild right upper lobe and minimal lingular infiltrate, likely related to aspiration pneumonia. clinically lacks symptoms 2. The patient with history of cerebrovascular accident and spastic right-sided hemiparesis along with global aphasia and oropharyngeal dysphagia, status post PEG tube. 3. History of chronic atrial fibrillation. Plan . 1. Continue with present antibiotics. 2. Would recommend changing to oral antibiotics via PEG Clinically, she does not have any fever and does not have any significant leukocytosis. 3. She could be discharged back to group home today IFEOMA CHURCH MD August 28, 2018 11:40
--- NOTE | 2018-08-28 13:19 | NUR ---
Discharge Note: ALEKSANDR ARAUJO Discharge instructions and discharge home medications reviewed with Family Member (daughter, Soraya)via telephone and a copy given to EMS for delivery upon arrival. All questions have been answered and understanding verbalized. The following instructions and handouts were given: diet, medication, and disease process education. Discontinued lines and drains: peripheral IV, tip intact. Patient discharged to home with home health via EMS. Patient left in stable condition with all personal belongings accompanied by EMS personnel.
--- NOTE | 2018-08-28 13:58 | NUR ---
All Rx faxed to [facility] per daughter's request.
[2018-08-28] MEDS ORDERED: CEPHALEXIN 250 MG/5 ML ORAL.SUSP. PEG SCH (14:00)
--- NOTE | 2018-08-28 21:06 | DS ---
DATE OF DISCHARGE: 08/28/2018 RN POST PARTUM: Dr. Lebron. FINAL DIAGNOSES: 1. Percutaneous endoscopic gastrostomy tube malfunction, which was changed. 2. Aspiration pneumonia. 3. Cerebrovascular accident with late effects with global aphasia, oropharyngeal dysphagia and spastic right-sided hemiparesis. 4. History of a right above-knee amputation. 5. Coronary artery disease. 6. Chronic atrial fibrillation, not a candidate for Coumadin. 7. Neurogenic bladder with Saab catheter in place. 8. Hypertension. 9. Hyperlipidemia. 10. Diabetes mellitus type 2, treated with diet. 11. Right upper lobe lung infiltrate consistent with aspiration pneumonia. HOSPITAL COURSE: The patient is a 72-year-old -[place] female with a history of a CVA with late effects with spastic right-sided hemiparesis, global aphasia and oropharyngeal dysphagia, maintained on gastrostomy tube feedings with a history of right above-knee amputation; diabetes mellitus type 2, treated with diet; hypertension; hyperlipidemia and chronic atrial fibrillation, not a candidate for anticoagulation due to the recurrent gross hematuria when she has been on it in the past; who was taken to the Emergency Room by her daughter who is her caregiver because of the gastrostomy tube malfunction. The G-tube was replaced and she had an acute abdominal series done, which showed a right upper lobe infiltrate, which the radiologist called pneumonia. She was admitted to the hospital. She received IV antibiotics with Rocephin and Zithromax through G-tube, seen by Dr. Lebron in consultation and felt that she could be switched to oral antibiotics today and felt that the white count was normal. There was no cough and she was afebrile and felt that it was perhaps due to some mild aspiration pneumonia. The patient's tube feedings were resumed. She did fine. She will be dismissed to home on Tylenol 650 mg every 6 hours p.r.n., amlodipine 10 mg every day, aspirin 81 mg every day, atorvastatin 40 mg every day, furosemide 20 mg every day, hydralazine 25 mg t.i.d., Isordil 20 mg t.i.d., losartan 100 mg every day, potassium chloride 20 mEq every day, Prevacid 30 mg every day, Zithromax 200 mg liquid t.i.d. for 3 more days and on the Keflex 500 mg t.i.d. liquid for 7 more days and make an appointment to see Dr. Valle in the office next week. Continue with her tube feeding boluses, Jevity 1.5 five cans a day and water 250 mL five cans a day. She will be dismissed with home health. IRWIN VALLE MD DR: ARMIDA/herb JOB#: [id number] / [id number]
== END 2018-08-28 13:19 | disposition home health service (06) | DRG 393 ==
LOC: ER 08:09 → 5 NORTH 10:25
PROVIDERS: ADMIT Internal Medicine; ATTEND Internal Medicine
PROC: 0D20XUZ Change Feeding Device in Upper Intestinal Tract, External Approach (ICD-10-PCS; principal; 2018-08-27)
DX: K94.23 Gastrostomy malfunction (principal); J69.0 Pneumonitis due to inhalation of food and vomit; I42.9 Cardiomyopathy, unspecified; I69.351 Hemiplegia and hemiparesis following cerebral infarction affecting right dominant side; I50.9 Heart failure, unspecified; I11.0 Hypertensive heart disease with heart failure; E11.9 Type 2 diabetes mellitus without complications; E78.00 Pure hypercholesterolemia, unspecified; E78.5 Hyperlipidemia, unspecified; I25.10 Atherosclerotic heart disease of native coronary artery without angina pectoris; R13.12 Dysphagia, oropharyngeal phase; I48.2 Chronic atrial fibrillation; K59.00 Constipation, unspecified; N31.9 Neuromuscular dysfunction of bladder, unspecified; Z95.1 Presence of aortocoronary bypass graft; Z89.611 Acquired absence of right leg above knee; Z89.511 Acquired absence of right leg below knee; Z79.82 Long term (current) use of aspirin; I25.2 Old myocardial infarction; I69.320 Aphasia following cerebral infarction; I69.391 Dysphagia following cerebral infarction
CPT/HCPCS: 36415; 71045; 74022; 80048; 80053; 82962; 85025; 87040; 93005; 94640; 94760; 96365; 96375; J0456; J0696; J7620; Q9967; 99285-25